=== PATIENT | female | born 1950 | race Caucasian/White ===

== ENCOUNTER 2017-07-31 15:43 | Inpatient (IN) | payer MEDICARE ==
[~2017-07-31] VITALS: Ht 152.4 cm; Wt 72.7 kg
--- OUTSIDE RECORDS SUMMARY | 2017-07-31 15:45 | XMS REPORT ---
Author Author [facility] Address Unknown Phone Unavailable Care Team Providers Care Pier Hand Name Role Phone ESTELLE CORDON Unavailable Unavailable Problems This patient has no known problems. Allergies, Adverse Reactions, Alerts This patient has no known allergies or adverse reactions. Medications This patient has no known medications. Results Test Description Test Time Test Comments Text Results Atomic Results Result Comments TISSUE EXAM 2017-03-06 17:27:00 Surgical Pathology Report Case: [id number] Authorizing Provider: Estelle Cordon MD Collected: 03/02/2017 1313 Ordering Location: [facility] Radiology Main Received: 2016 8792 Pathologist: Adebayo Mosqueda MD Specimen: Lung, Right Lower Lobe, RT LOWER LOBE LUNG, RIGHT LOWER LOBE , CT-GUIDED BIOPSY: - ATYPICAL BRONCHIOLOALVEOLAR PROLIFERATION (SEE COMMENT) Signing Pathologist Direct Phone Line: [phone] signed by Adebayo Mosqueda MD on 03/06/2017 at 5:27 PMMultiple levels of the biopsy show an atypical bronchioloalveolar proliferation. If this lesion is greater than 0.5 cm, it can be classified as an adenocarcinoma with a lepidic pattern. If the lesion is less than 0.5 cm, a diagnosis of atypical adenomatous hyperplasia is favored. Therefore, clinical correlation is recommended. Dr. Fabián Ley from [facility] had reviewed this case and concurs with the findings.[id number] lower lobe noduleRight lower lobe CT lung biopsyThe specimen is received in a formalin-filled container and labeled with the patient's information and labeled "CT lung biopsy right lower lobe" and consists of two sofia-red core biopsy ranging in length from 0.5 to 1 cm , submitted entirely A1. CG/pl Performed. RAD, CHEST, 1 VIEW, NON DEPT 2017-03-03 21:47:00 Reason for exam:->Post Chest tube removalShould this be performed at the bedside?->Yes FINAL REPORT EXAMINATION: AP PORTABLE CHEST RADIOGRAPH CLINICAL INDICATION: Chest tube removal IMPRESSION: Compared with 03/03/2017, 1726 hours. No definite evidence of a large pneumothorax following chest tube removal. However, evaluation for a small residual pneumothorax is limited by AP portable technique and patient's body habitus. Consider short-term imaging surveillance. Alternatively, a chest CT could be performed. Signed: Jamil López Verified Date/Time: 03/03/2017 21:47:16 Reading Location: [address] Reading Room , CHEST, 1 VIEW, NON DEPT 2017-03-03 17:40:00 Reason for exam:->post pig tail catheter removalto be completed in radiology departmentShould this be performed at the bedside?->Noat radiology department FINAL REPORT Chest, single frontal view History: Status post clamping of pigtail chest tube Comparison: Earlier the same day at 11:44 AM IMPRESSION: There is no evidence of pneumothorax status post clamping of the right pigtail chest tube. The heart is of stable size and configuration. There is a trace right pleural effusion. There is no sizable left pleural effusion. Signed: Brian Kaminski Verified Date/Time: 03/03/2017 17:40:29 Reading Location: [facility] C013W Consult Reading Room , CHEST, 1 VIEW, NON DEPT 2017-03-03 13:01:00 Reason for exam:->chest tube for pneumothorax on Water sealShould this be performed at the bedside?-> Yes FINAL REPORT Chest one view Discussion: There is mild cardiac prominence. Right-sided pigtail pleural drain in place. There is right midlung minimal suspected atelectasis. No effusion or pneumothorax. Lungs otherwise clear. Signed: Libertad Romo Verified Date/Time: 03/03/2017 13:01:38 Reading Location: [facility] Reading Room , CHEST, 1 VIEW, NON DEPT 2017-03-03 10:59:00 Reason for exam:->ptxShould this be performed at the bedside?->Yes FINAL REPORT Chest one view compared to March 02 Discussion: Right-sided pigtail pleural drain in place. No effusion or pneumothorax. Right midlung focal opacity laterally is noted more conspicuous and suggested a and probably reflecting atelectasis adjacent to pleural thickening. Left lung clear. Signed: Libertad Romo Verified Date/Time: 03/03/2017 10:59:40 Reading Location: [facility] Radiology Reading Room , BIOPSY, LUNG 2017-03-02 15:45:00 Reason for Exam:->R91.1 FINAL REPORT PROCEDURE: CT-guided core biopsy of right lower lobe subsolid lung nodule with subsequent CT-guided placement of right pleural drainage catheter. Dose modulation, iterative reconstruction, and/or weight- based adjustment of the mA/kV was utilized to reduce the radiation dose to as low as reasonably achievable. INDICATION: 35-year-old woman with lung nodule. COMPARISON: None. ANESTHESIA: Intravenous moderate sedation was administered by radiology nursing. Continuous hemodynamic and respiratory monitoring was performed, including the use of pulse oximetry. Total intraservice time of sedation was 45 minutes. MEDICATIONS: 0.5 mg Versed, 25 mcg fentanyl DESCRIPTION : After obtaining informed written consent, the patient was brought to the CT scanner and placed in the prone position. Preliminary CT scan revealed 1.4 cm subsolid nodule in the right lower lobe. This nodule was targeted for biopsy. The overlying skin was prepped and draped in the usual, sterile fashion and local 1% lidocaine anesthesia was administered. Under CT guidance, a 19-gauge introducer needle was inserted into the posterolateral right back and placed at the periphery of the nodule. The inner stylette was removed, and a 20-gauge Temno core biopsy needle was passed through the introducer and into the nodule. Two core biopsy samples of the nodule were obtained. The needles were subsequently removed. Follow-up CT scan revealed development of a moderate pneumothorax, which enlarged after a subsequent [address] scan. A right pleural drainage catheter was to be placed. The overlying skin was prepped and draped in the usual, sterile fashion and local 1% lidocaine anesthesia was administered. Under CT guidance, a 19-gauge needle was inserted into the right back and placed into the right pleural space. A 0.035 inch wire was passed through the needle and into the right pleural space. The needle was removed. An 8 Bahamian all-purpose drainage catheter was threaded over the wire and into the pleural space after serial dilatation of the tract with 6 and 8 Bahamian dilators. The wire was removed. The catheter was affixed to the skin and connected to Pleur-evac. Post procedure CT scan showed near complete resolution of the right pneumothorax. IMPRESSION:CT-guided core biopsy of right lower lobe nodule, complicated by postprocedural pneumothorax. Uncomplicated CT-guided placement of 8 Bahamian pleural drainage catheter on the right with near complete resolution of pneumothorax on postprocedural CT scan. Signed: Kentrell Velasco Verified Date/Time: 03/02/2017 15:45:51 Reading Location: [place] [id number] CT Body Reading Room , CHEST, PA OR AP, 1 VIEW 2017-03-02 15:03:00 Reason for exam:->S/P right lung biopsyShould this be performed at the bedside?->No FINAL REPORT Chest one view compared to July 15, 2002 Discussion: Right- sided pigtail pleural drain is present with no visible effusion or pneumothorax after lung biopsy. 1 cm focal opacity is seen in the right mid chest corresponding with a focal region of pleural thickening present on CT. IMPRESSIONS: No visible pneumothorax. Signed: Libertad Romo Verified Date/Time: 03/02/2017 15:03:39 Reading Location: [facility] C013W Consult Reading Room /APTT 2017-03-02 11:08:00 PROTIME (BEAKER) (test lsyn=840) 12.6 seconds 11.7-14.7 INR (BEAKER) (test djms=460) 1.0 <=5.9 PARTIAL THROMBOPLASTIN TIME (BEAKER) (test gkws=236) 33.0 seconds 22.5-36.0 RECOMMENDED COUMADIN/WARFARIN INR THERAPY RANGESSTANDARD DOSE: 2.0 - 3.0 Includes: PROPHYLAXIS for venous thrombosis, systemic embolization; TREATMENT for venous thrombosis and/or pulmonary embolus.HIGH RISK: Target INR is 2.5-3.5 for patients with mechanical heart valves.PLATELET [id number] 11:00:00* Test Item Value Reference Range Comments PLATELET COUNT (BEAKER) (test xtva=559) 186 K/CU MM 150-450
[2017-07-31] MEDS ORDERED: ISOSORBIDE MONO30 MG PO (15:59)
[2017-07-31] MEDS ORDERED: ALBUTEROL0.63 MG/3 INH (15:59)
[2017-07-31] MEDS ORDERED: METOPROLOL TART50 MG PO (15:59)
[2017-07-31] MEDS ORDERED: CLARITIN-D 241 EACH PO (15:59)
[2017-07-31] MEDS ORDERED: AMLODIPINE BESY10 MG PO (15:59)
[2017-07-31] MEDS ORDERED: ASPIR 8181 MG PO (15:59)
[2017-07-31] MEDS ORDERED: ATORVASTATIN CA20 MG PO (15:59)
[2017-07-31] MEDS ORDERED: PREMARIN0.625 MG VG (15:59)
[2017-07-31] MEDS ORDERED: SODIUM CHLORIDE 0.9% 1000ML 1,000 ML IV STA (16:17)
[2017-07-31 16:23] LABS: BASOPHILS % 0.8 % (0.0-1.0); EOSINOPHILS # (AUTO) 0.1 (0.0-0.4); EOSINOPHILS % 1.8 % (0.0-6.0); HEMATOCRIT 42.8 % (34.2-44.1); HEMOGLOBIN 14.8 g/dL (12.0-16.0); LYMPHOCYTES % 19.2 % (18.0-39.1); MEAN CORPUSCULAR HEMOGLOBIN 32.8 pg (28-32); MEAN CORPUSCULAR HGB CONC 34.6 g/dL (31-35); MEAN CORPUSCULAR VOLUME 94.9 fL (81-99); MONOCYTES # (AUTO) 0.5 (0.2-0.8); MONOCYTES % 9.2 % (4.4-11.3); NEUTROPHILS # (AUTO) 3.4 (2.1-6.9); NEUTROPHILS % 68.2 % (38.7-80.0); PLATELET COUNT 160 x10e3/uL (140-360); RED BLOOD COUNT 4.51 x10e6/uL (3.6-5.1); RED CELL DISTRIBUTION WIDTH 12.1 % (11.7-14.4)
[2017-07-31 16:27] LABS: INR 1.03; PROTHROMBIN TIME 12.7 seconds (11.9-14.5)
[2017-07-31 16:28] LABS: PARTIAL THROMBOPLASTIN TIME 32.7 seconds (23.8-35.5)
[2017-07-31] MEDS ORDERED: METHYLPREDNISOLONE SOD SUCC 125 MG/2ML VIAL IV ONE (16:30)
[2017-07-31 16:37] LABS: ALANINE AMINOTRANSFERASE 22 IU/L (0-55); ALBUMIN 3.3 g/dL (3.5-5.0); ALBUMIN/GLOBULIN RATIO 0.8 (0.8-2.0); ALKALINE PHOSPHATASE 89 IU/L (40-150); ANION GAP 11.7 mmol/L (8-16); BLOOD UREA NITROGEN 12 mg/dL (7-26); BUN/CREATININE RATIO 18 (6-25); CALCIUM 8.6 mg/dL (8.4-10.2); CARBON DIOXIDE 25 mmol/L (22-29); CHLORIDE 98 mmol/L (98-107); CREATINE KINASE 41 IU/L (29-168); CREATININE, SERUM 0.67 mg/dL (0.57-1.11); EST GLOMERULAR FILTRATION RATE > 60 ML/MIN (60-); GLUCOSE 111 mg/dL (74-118); POTASSIUM 3.7 mmol/L (3.5-5.1); SODIUM 131 mmol/L (136-145)
--- NOTE | 2017-07-31 17:15 | Diagnostic Imaging Report ---
PROCEDURE:CHEST SINGLE (PORTABLE) 1707 hrs. COMPARISON:None. INDICATIONS:PRODUCTIVE COUGH FINDINGS: LUNGS:No well-inflated. Mild bibasilar atelectasis. No mass or infiltrate. Pulmonary vascular markings are normal. CARDIAC:Mildly enlarged. MEDIASTINUM:Normal. PLEURA:No pleural thickening or pleural effusion. No pneumothorax. BONES:A mandibular plate is incompletely imaged. No focal osseous lesions. CONCLUSION: No acute cardiopulmonary process. Dictated by: Sai Redd M.D. on 07/31/2017 at 17:15 Electronically approved by: Sai Redd M.D. on 07/31/2017 at 17:15
[2017-07-31 17:53] LABS: ABG HCO3 24 mmol/L (23-28); ABG PCO2 41 mmHg (41-51); ABG PH 7.38 (7.31-7.41); ABG PO2 53 mmHg (80-105)
[2017-07-31] MEDS ORDERED: AZITHROMYCIN 500MG/SOD CHL 0.9% 250ML BAG IV SCH (18:30)
[2017-07-31] MEDS: ALBUTEROL SULF 0.083% NEB SOLN 3 ML NEB NEB SCH ×2 (19:02→23:00)
[2017-07-31] MEDS: AZITHROMYCIN 500MG/NS 250 ML 250 ML IV SCH (19:49)
[2017-07-31] MEDS: SODIUM CHLORIDE 0.9% 1000ML 1,000 ML IV SCH (19:49)
[2017-07-31] MEDS ORDERED: ONDANSETRON HCL INJ 2 MG/ML VIAL IV PRN (20:15)
[2017-07-31 21:45] VITALS: BP 97/58
[2017-07-31] MEDS: METHYLPREDNISOLONE SOD SUCC 40 MG/ML VIAL IV SCH (22:00)
[2017-07-31 22:55] VITALS: BP 97/58
[2017-08-01] VITALS (8 sets, daily range): BP systolic 99–121; BP diastolic 52–60
[2017-08-01] MEDS ORDERED: IPRATROPIUM BROMIDE 0.02% 2.5 ML NEB NEB SCH
[2017-08-01] MEDS: SODIUM CHLORIDE 0.9% 1000ML 1,000 ML IV SCH (02:23)
[2017-08-01] MEDS: ALBUTEROL SULF 0.083% NEB SOLN 3 ML NEB NEB SCH ×5 (03:00→20:15)
--- NOTE | 2017-08-01 04:20 | Consultation ---
DATE OF CONSULTATION: August 01, 2017 PULMONARY MEDICINE CONSULT REFERRING PHYSICIAN: [facility] MD: KATHY CAMPBELL CHIEF COMPLAINT: Shortness of breath. HISTORY: Mrs. James is a pleasant 67-year-old female with shortness of breath. The patient with onset 2 weeks ago. However, for the last 3 days symptoms are worse. The patient went in to see her manager mac today. Due to severe hypoxemia of 78% on room air, she was sent to the emergency room. The patient was having excess wheezing. She was found with thin sputum production. When she came to the emergency room, she was short of breath. She was given oxygen, but then she was given a trial of BiPAP, which she did not tolerate very well. However, she was given nebulized treatments, as well as steroids. She started to feel a little bit better. Chest x-ray is unremarkable on 1 view. At baseline, the patient with daily allergies. Known asthma. Reported COPD. The patient even had lung cancer, status post radiation therapy. Exercise tolerance is three-quarters of a block, which is limited by shortness of breath and knee pain. Normally at home, she is only on albuterol inhaler or nebulized therapy. She still actively smokes. PAST MEDICAL HISTORY: Asthma, COPD, daily allergies, hypertension, lung cancer, status post radiation therapy in 2017, coronary artery disease, femoral popliteal bypass. MEDICATIONS: List reviewed per electronic record. ALLERGIES: VARENICLINE, ALENDRONATE, NIACIN, PENICILLIN. SOCIAL HISTORY: No drinking. No drugs. The patient smoked from age 12 to age 67, 1-pack per day. 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 FAMILY HISTORY: Noncontributory. REVIEW OF SYSTEMS GENERAL: No weight changes. OPHTHALMOLOGIC: No double vision. ENT: There is no history of Sjogren's syndrome. PULMONARY: No hemoptysis. HEART: No heart attacks recent. GI: No current pain. : No blood in the urine. NEUROLOGIC: No seizures. DERMATOLOGIC: No rashes. PSYCHIATRIC: No depression. PHYSICAL EXAMINATION VITALS: Currently afebrile. Vital signs noted per electronic record. GENERAL: No acute distress. Alert and calm and very pleasant. HEENT: Normocephalic and atraumatic. NECK: Supple. Throat midline. LUNGS: Bilateral air entry. There is small crackles heard. Small wheezes heard, but overall moderate air entry. CARDIOVASCULAR: S1 and S2. No murmurs, rubs or gallops. ABDOMEN: Soft and nontender. EXTREMITIES: No clubbing. No cyanosis. There is some 2+ edema. INTEGUMENT: No rash. No purpura. There is some possible stasis changes to the legs. LABS: Potassium 2.7, BUN 12, creatinine 0.7. White count 5, hematocrit 42 and platelets 160,000. BNP was 155. 7.38/41/53/86% oxygen saturation, and 24 bicarbonate. Albumin is 3.3 with LFTs otherwise normal. IMPRESSION AND PLAN 1. Treat for asthma with exacerbation. 2. Chronic obstructive pulmonary disease with exacerbation by history. 3. Daily allergies. 4. History of lung cancer, status post radiation therapy in 2017. 5. Hypertension. 6. Coronary artery disease. 7. History of peripheral vascular disease and femoral popliteal bypass surgery. 8. Active smoker. 9. Acute hypoxemic respiratory failure, improving. 10. Electrolyte abnormalities including low sodium and low normal potassium. Will get PT consult. Will make sure the patient maintains her strength. Steroids will be for short-term. Bronchodilators. She needs outpatient confirmation for her diagnosis, and she is already with [facility]. She can be referred to them after discharge. She will have antibiotics for short-term here for COPD exacerbation. DVT prophylaxis as appropriate especially since the patient is not ambulating well. The patient also needs escalation of her medications as she is only on albuterol treatment at home for some unknown reason. She may even benefit from aggressive pulmonary rehabilitation after discharge. Thank you, Dr. Campbell, for allowing me the chance to participate in the care of Mrs. James. Do not hesitate to contact me if I can help in any way. Job#: [id number] RAZ COURTNEY
[2017-08-01] MEDS: METHYLPREDNISOLONE SOD SUCC 40 MG/ML VIAL IV SCH ×3 (05:05→21:34)
[2017-08-01 06:25] LABS: BASOPHILS % 0.2 % (0.0-1.0); HEMATOCRIT 41.2 % (34.2-44.1); HEMOGLOBIN 14.1 g/dL (12.0-16.0); LYMPHOCYTES # (AUTO) 0.5 (1.0-3.2); LYMPHOCYTES % 13.2 % (18.0-39.1); MEAN CORPUSCULAR HEMOGLOBIN 33.1 pg (28-32); MEAN CORPUSCULAR HGB CONC 34.2 g/dL (31-35); MEAN CORPUSCULAR VOLUME 96.7 fL (81-99); MONOCYTES # (AUTO) 0.1 (0.2-0.8); MONOCYTES % 1.7 % (4.4-11.3); NEUTROPHILS # (AUTO) 3.4 (2.1-6.9); NEUTROPHILS % 84.4 % (38.7-80.0); PLATELET COUNT 163 x10e3/uL (140-360); RED BLOOD COUNT 4.26 x10e6/uL (3.6-5.1)
--- NOTE | 2017-08-01 06:36 | Diagnostic Imaging Report ---
CHEST SINGLE (PORTABLE), 08/01/2017 5:00 AM Technique: CHEST SINGLE (PORTABLE) Comparison: None available. Clinical history: Pneumonia Findings: See Impression Impression: 1. Mildly enlarged cardiac silhouette. 2. Left hilar parviz calcifications and left lung calcified granuloma. 3. 5 mm nodule projects over the right lung, which may be calcified or summation shadow or true nodule. Recommend follow-up upright PA and lateral. 4. No consolidation. No effusion or pneumothorax. Signed by: Dr Sandi Gonzalez MD on 08/01/2017 6:32 AM
[2017-08-01 06:43] LABS: ANION GAP 17.1 mmol/L (8-16); BLOOD UREA NITROGEN 16 mg/dL (7-26); BUN/CREATININE RATIO 21 (6-25); CALCIUM 8.7 mg/dL (8.4-10.2); CARBON DIOXIDE 21 mmol/L (22-29); CHLORIDE 98 mmol/L (98-107); CREATININE, SERUM 0.77 mg/dL (0.57-1.11); EST GLOMERULAR FILTRATION RATE > 60 ML/MIN (60-); GLUCOSE 195 mg/dL (74-118); POTASSIUM 4.1 mmol/L (3.5-5.1); SODIUM 132 mmol/L (136-145)
[2017-08-01] MEDS: IPRATROPIUM BROMIDE 0.02% 2.5 ML NEB NEB SCH ×4 (07:00→20:15)
[2017-08-01] MEDS ORDERED: ASPIRIN 325 MG TAB PO SCH (09:00)
[2017-08-01] MEDS: ASPIRIN 81 MG ENTERIC COATED PO SCH (09:23)
[2017-08-01] MEDS: ENOXAPARIN SOD INJ 40 MG/0.4 ML SYR SC SCH (18:39)
[2017-08-01] MEDS: AZITHROMYCIN 500MG/NS 250 ML 250 ML IV SCH (19:21)
[2017-08-01] MEDS ORDERED: ATORVASTATIN 20 MG TAB PO SCH (21:00)
[2017-08-01] MEDS: ATORVASTATIN 40 MG TAB PO SCH (21:34)
[2017-08-02] VITALS (10 sets, daily range): BP systolic 104–128; BP diastolic 43–72
[2017-08-02] MEDS: IPRATROPIUM BROMIDE 0.02% 2.5 ML NEB NEB SCH ×7 (00:30→23:18)
[2017-08-02] MEDS: ALBUTEROL SULF 0.083% NEB SOLN 3 ML NEB NEB SCH ×7 (00:30→23:18)
[2017-08-02] MEDS: METHYLPREDNISOLONE SOD SUCC 40 MG/ML VIAL IV SCH ×3 (06:20→21:39)
--- NOTE | 2017-08-02 06:28 | Diagnostic Imaging Report ---
CHEST SINGLE (PORTABLE), 08/02/2017 5:00 AM Technique: CHEST SINGLE (PORTABLE) Comparison: 08/01/2017. Clinical history: COPD exacerbation Findings: See Impression Impression: 1. Stable mildly enlarged cardiac silhouette. 2. Left hilar parviz calcifications and left lung calcified granuloma. Previously described right lung nodule not seen. 3. Large lung volumes/hyperinflation without consolidation. No effusion or pneumothorax. Signed by: Dr Sandi Gonzalez MD on 08/02/2017 6:24 AM
[2017-08-02] MEDS: ASPIRIN 81 MG ENTERIC COATED PO SCH (09:38)
[2017-08-02] MEDS ORDERED: PREDNISONE10 M1 PO (13:17)
[2017-08-02] MEDS ORDERED: SINGULAIR10 MG PO (13:17)
[2017-08-02] MEDS ORDERED: ADVAIR 500/501 EA INH (13:17)
[2017-08-02] MEDS ORDERED: PROAIR HFA INH8.5 GM PO (13:17)
--- NOTE | 2017-08-02 15:37 | Progress Note ---
DATE: August 02, 2017 PULMONARY MEDICINE PROGRESS NOTE SUBJECTIVE: Ms. James was seen and examined at bedside. She continues to have slow progress. Still a lot of wheezing. Still mildly tight airways. Oxygen saturation 96% on 5 liters per minute nasal cannula oxygen. When she is removed from oxygen, her oxygen saturation becomes 87% on room air at rest. She is not able to get up and ambulate too much as she is tied down via the oxygen equipment and her dyspnea. REVIEW OF SYSTEMS: No bleeding, no rash. OBJECTIVE VITAL SIGNS: Afebrile. Vital signs noted per electronic record. GENERALLY: No acute distress, but some trouble completing long sentences but able to talk and hold a conversation. HEENT: Normocephalic, atraumatic. NECK: Supple. Throat midline. LUNGS: Bilateral air entry, a few rare rhonchi, moderate wheezes, mildly decreased air entry. CARDIOVASCULAR: S1 and S2. No murmurs, rubs or gallops. ABDOMINAL: Soft, nontender. EXTREMITIES: No clubbing, no cyanosis. There is still the 2+ edema all over the body. INTEGUMENT: No rash. No purpura. LABS: Potassium 4.1, BUN 16, creatinine 0.8. Patient with 4 white count, 41 hematocrit, 163 platelets. Chest radiography with stable findings, mostly clear lungs except for some perihilar and mediastinal calcifications probably in lymph nodes. IMPRESSION AND PLAN 1. Chronic obstructive pulmonary disease with exacerbation. COPD is per report. 2. Asthma with exacerbation. 3. Chronic allergies. 4. Hypoxemia, significant still. 5. Generalized edema, patient declared to me she was started with venous stasis changes rather than dermal atrophy due to steroids. 6. Remaining gastroesophageal reflux disease. Continue current treatment at this time. Patient will get continued evaluation to see how significant any GERD is as of now. She tends to minimize this process. However, her breathing still requires the IV steroids. Continue bronchodilators. I have prepared some medicines and discussed with her outpatient treatment as usual for this process. I explained to her the rationale for stepping up on breathing treatments and any other corticosteroids and other medicines. Continue to wean down the oxygen. For now, patient still is on more oxygen than she is at home, as she at home has not been given any recommendation to use home oxygen. Follow along closely. Job#: [id number] EV
[2017-08-02] MEDS: ENOXAPARIN SOD INJ 40 MG/0.4 ML SYR SC SCH (16:51)
[2017-08-02] MEDS: AZITHROMYCIN 500MG/NS 250 ML 250 ML IV SCH (18:02)
[2017-08-02] MEDS: ATORVASTATIN 40 MG TAB PO SCH (20:52)
[2017-08-03] VITALS (7 sets, daily range): BP systolic 110–135; BP diastolic 56–97
[2017-08-03] MEDS: IPRATROPIUM BROMIDE 0.02% 2.5 ML NEB NEB SCH ×6 (02:57→23:20)
[2017-08-03] MEDS: ALBUTEROL SULF 0.083% NEB SOLN 3 ML NEB NEB SCH ×6 (02:57→23:20)
[2017-08-03] MEDS: METHYLPREDNISOLONE SOD SUCC 40 MG/ML VIAL IV SCH ×3 (05:11→21:09)
[2017-08-03] MEDS: BENZONATATE 100 MG CAP PO SCH ×2 (08:27→16:22)
[2017-08-03] MEDS: ASPIRIN 81 MG ENTERIC COATED PO SCH (08:27)
[2017-08-03] MEDS: ENOXAPARIN SOD INJ 40 MG/0.4 ML SYR SC SCH (16:22)
[2017-08-03] MEDS: AZITHROMYCIN 500MG/NS 250 ML 250 ML IV SCH (18:10)
--- NOTE | 2017-08-03 19:35 | Progress Note ---
DATE: August 03, 2017 PULMONARY MEDICINE PROGRESS NOTE SUBJECTIVE: Mrs. James was seen and examined at bedside. She continues to have slow progress. She still has much decreased air entry when listening to her lungs. Patient continues to have low functional endurance. She gets up to the bedside toilet with assist, and then she is exhausted. She desaturates right away. She is drinking little and has low appetite. Patient as well remains on nasal cannula oxygen 4 liters per minute, 95% oxygen saturation. Urine output is kind of low, to go along with drinking little. She had a bowel movement. REVIEW OF SYSTEMS: No headaches, no rash. OBJECTIVE VITAL SIGNS: Afebrile. Vital signs noted per electronic record. GENERALLY: No acute distress, alert and slightly anxious but able to talk fluently. HEENT: Normocephalic, atraumatic. NECK: Supple. Throat midline. LUNGS: Bilateral air entry, a few smaller wheezes today but decreased breath sounds. CARDIOVASCULAR: S1 and S2. No murmurs, rubs or gallops. ABDOMINAL: Soft, nontender. EXTREMITIES: No clubbing, no cyanosis. There is decreasing edema, 2+. INTEGUMENT: No rash. Mild purpura. Old bruising, flaky skin. LABS: Potassium 4.1, BUN 16, creatinine 0.8. White count 4, hematocrit 41, platelets 163. IMPRESSION AND PLAN 1. Chronic obstructive pulmonary disease with exacerbation. 2. Asthma exacerbation. 3. Refractory/persistent hypoxemia and dyspnea. 4. Daily allergies. 5. History of lung cancer and radiation therapy 2017. 6. Hypertension, coronary artery disease, peripheral vascular disease, bypass status, probable mild dehydration intravascularly. 7. Active smoker. 8. Hypoxemia and respiratory failure, resolving but still active. Due to refractory state, will check a lower extremity ultrasound Doppler, rule out DVT. Consideration for CT angiography to rule out PE. Will increase the enoxaparin for a short term hopefully and will be able to scale back if we do not have any clots. Continue steroids and bronchodilators. Will follow along closely. Job#: [id number] ANGELA
[2017-08-03] MEDS: ATORVASTATIN 40 MG TAB PO SCH (21:09)
[2017-08-04] VITALS (9 sets, daily range): BP systolic 101–144; BP diastolic 60–70
[2017-08-04] MEDS: IPRATROPIUM BROMIDE 0.02% 2.5 ML NEB NEB SCH ×6 (03:07→23:25)
[2017-08-04] MEDS: ALBUTEROL SULF 0.083% NEB SOLN 3 ML NEB NEB SCH ×6 (03:07→23:25)
[2017-08-04] MEDS: METHYLPREDNISOLONE SOD SUCC 40 MG/ML VIAL IV SCH ×3 (05:20→21:33)
[2017-08-04] MEDS: ENOXAPARIN INJ 80 MG/0.8 ML SYR SC SCH ×2 (09:13→20:21)
[2017-08-04] MEDS: BENZONATATE 100 MG CAP PO SCH ×2 (09:13→16:31)
[2017-08-04] MEDS: ASPIRIN 81 MG ENTERIC COATED PO SCH (09:13)
--- NOTE | 2017-08-04 13:37 | Progress Note ---
DATE: August 04, 2017 PULMONARY MEDICINE PROGRESS NOTE SUBJECTIVE: Mrs. James was seen and examined at bedside. She continues to have poor improvement. She is still not even at half of her baseline functionality. Patient with tight airways when she breathes. Ultrasound of the lower extremities appears like it will be negative for DVT. She remains on bronchodilators and IV steroids. REVIEW OF SYSTEMS: No bleeding. No rash. OBJECTIVE VITAL SIGNS: Afebrile. Vital signs noted per electronic record. GENERAL: No acute distress, alert and calm, but using excess work to breathe. HEENT: Normocephalic, atraumatic. NECK: Supple. Throat midline. LUNGS: Bilateral air entry, a few rhonchi, tight airways moderately, moderate wheezes. CARDIOVASCULAR: S1 and S2. No murmurs, rubs or gallops. ABDOMEN: Soft, nontender. EXTREMITIES: No clubbing, no cyanosis. There is stable 1 to 2+ edema. INTEGUMENT: No rash. No purpura. Thin skin. IMPRESSION AND PLAN 1. Chronic obstructive pulmonary disease with exacerbation. 2. Possible concomitant asthma with exacerbation. 3. Chronic allergies. 4. Refractory dyspnea. 5. Poor functional endurance at this time. Continue steroids at this time. Further, we will continue bronchodilators. Will have to consider other etiologies. IgE, risk factors and LALA we all sent today. Send urinalysis. Send CT angiography to rule out thromboembolic disease and also look at the structure of the lungs. The patient notably has some kind of lung cancer for which radiation was given which would make us assume it was a very small lesion, but CT scan will allow us to figure that out. Job#: [id number]
--- NOTE | 2017-08-04 15:48 | Diagnostic Imaging Report ---
EXAM: CT Chest WITH contrast (PE Protocol) INDICATION: \S\pulmonary embolism \S\[id number] \S\1450 COMPARISON: Chest x-ray dated 08/02/2017 TECHNIQUE: Chest was scanned utilizing a multidetector helical scanner from the lung apex through the level of the diaphragm after administration of IV contrast. Thin section reconstructions were obtained with special concentration on the pulmonary arteries. Coronal and sagittal reformations were obtained. Pulmonary embolism protocol was performed. IV CONTRAST: 100 mL of Omnipaque 350 COMPLICATIONS: None RADIATION DOSE: Total DLP: 532.19 mGy*cm Estimated effective dose: (DLP x 0.014 x size factor) mSv CTDIvol has been reviewed. It is below the limits set by the Radiation Protocol Committee (RPC). FINDINGS: LINES/ TUBES: None. LUNGS AND AIRWAYS: Evaluation of the lungs are limited by respiratory motion. No filling defect is identified within the pulmonary arteries to the segmental level. Left lower lobe calcified granuloma. Bilateral dependent atelectasis, right slightly more to left. Airways are normal. PLEURA: The pleural spaces are clear. HEART AND MEDIASTINUM: The thyroid gland is normal. No mediastinal, hilar or axillary lymphadenopathy. The heart is mildly enlarged. There is no pericardial effusion. . Main pulmonary artery measures 3 cm in diameter. Mild atherosclerotic calcification of coronary arteries. UPPER ABDOMEN: Multiple splenic calcified granulomas. BONES: Age indeterminate compression fracture of T5 vertebral body with exaggerated kyphosis, centered at this level. SOFT TISSUES: Unremarkable. IMPRESSION: No pulmonary emboli. Age indeterminate compression fracture of T5 vertebral body. Signed by: Dr. Demarcus Klein MD on 08/04/2017 3:45 PM
[2017-08-04 15:56] LABS: BILIRUBIN,URINE NEGATIVE (NEGATIVE); COLOR,URINE YELLOW (YELLOW); KETONES,URINE NEGATIVE (NEGATIVE); LEUKOCYTE ESTERASE ,URINE NEGATIVE (NEGATIVE); NITRITE,URINE NEGATIVE (NEGATIVE); PROTEIN,URINE DIPSTICK NEGATIVE (NEGATIVE); URINE UROBILINOGEN 0.2 mg/dL (0.2 - 1)
[2017-08-04 15:58] LABS: CLARITY,URINE SL CLOUDY (CLEAR)
[2017-08-04 16:09] LABS: BACTERIA,URINE RARE /HPF; EPITHELIAL CELLS,URINE MODERATE /LPF; RBC,URINE 0-5 /HPF (0-5); WBC,URINE (MAN) 0-5 /HPF (0-5)
[2017-08-04] MEDS: AZITHROMYCIN 500MG/NS 250 ML 250 ML IV SCH (18:20)
[2017-08-04] MEDS: ATORVASTATIN 40 MG TAB PO SCH (20:22)
[2017-08-04] MEDS ORDERED: SODIUM CHLORIDE 0.9% 50ML 50 ML ONE (22:15)
[2017-08-04] MEDS ORDERED: IOPAMIDOL 370 MG/ML 200 ML INFUS..BTL INJ ONE (22:15)
[2017-08-05] VITALS (7 sets, daily range): BP systolic 96–132; BP diastolic 61–65
[2017-08-05] MEDS: IPRATROPIUM BROMIDE 0.02% 2.5 ML NEB NEB SCH ×6 (03:10→23:42)
[2017-08-05] MEDS: ALBUTEROL SULF 0.083% NEB SOLN 3 ML NEB NEB SCH ×6 (03:10→23:42)
[2017-08-05] MEDS: METHYLPREDNISOLONE SOD SUCC 40 MG/ML VIAL IV SCH ×3 (05:41→21:53)
[2017-08-05] MEDS: BENZONATATE 100 MG CAP PO SCH ×2 (09:15→17:05)
[2017-08-05] MEDS: ENOXAPARIN INJ 80 MG/0.8 ML SYR SC SCH (09:15)
[2017-08-05] MEDS: ASPIRIN 81 MG ENTERIC COATED PO SCH (09:15)
--- NOTE | 2017-08-05 14:38 | Progress Note ---
DATE: August 05, 2017 PULMONARY MEDICINE PROGRESS NOTE SUBJECTIVE: Mrs. James was seen and examined at bedside. She continues to have slow progress. Still some wheezing. Still semi-tight chest. CT angiography, however, did not show any pulmonary embolism yesterday. At this time, she continues on 2 L per minute nasal cannula with 95% oxygen saturation. She is having bowel movements daily. REVIEW OF SYSTEMS: No headaches. No double vision or GI bleed. OBJECTIVE VITALS: Afebrile. Vital signs noted per electronic record. GENERAL: No acute distress. Still with low function endurance obvious when moving even in bed. HEENT: Normocephalic and atraumatic. NECK: Supple. Throat midline. LUNGS: Bilateral air entry is moderate only, decreased. There is some mild to moderate wheezes present. Few rhonchi. CARDIOVASCULAR: S1 and S2. No murmurs, rubs or gallops. ABDOMEN: Soft and nontender. EXTREMITIES: No clubbing. No cyanosis. There is stable edema and thin skin. INTEGUMENT: No rash. No purpura. LABS: IgE is still pending. LALA is pending. Rheumatoid factor negative. IMPRESSION AND PLAN 1. Chronic obstructive pulmonary disease with exacerbation. 2. Asthma with exacerbation. 3. Possible mild pulmonary hypertension. 4. Weakness and debility. 5. Reported lung cancer with radiation therapy, although this is not very well noted on computerized tomography scan. 6. Allergies. 7. Active smoking. Make sure we continue smoking cessation in hopes she can achieve after she gets out of the hospital. Continue PT and mobilization. Steroids continue for now and hope to get this weaned down soon. Medications including bronchodilators will be continued. Will consider addition of theophylline due to this slow progress that we are achieving. Job#: [id number] RAZ
[2017-08-05] MEDS: AZITHROMYCIN 500MG/NS 250 ML 250 ML IV SCH (18:47)
[2017-08-05] MEDS: ATORVASTATIN 40 MG TAB PO SCH (21:53)
[2017-08-06] VITALS (10 sets, daily range): BP systolic 132–146; BP diastolic 57–81
[2017-08-06] MEDS: IPRATROPIUM BROMIDE 0.02% 2.5 ML NEB NEB SCH ×5 (03:00→23:05)
[2017-08-06] MEDS: ALBUTEROL SULF 0.083% NEB SOLN 3 ML NEB NEB SCH ×6 (03:00→23:05)
[2017-08-06] MEDS: METHYLPREDNISOLONE SOD SUCC 40 MG/ML VIAL IV SCH ×3 (06:00→22:10)
[2017-08-06 06:22] LABS: BASOPHILS % 0.3 % (0.0-1.0); HEMATOCRIT 39.3 % (34.2-44.1); HEMOGLOBIN 13.3 g/dL (12.0-16.0); LYMPHOCYTES # (AUTO) 0.5 (1.0-3.2); MEAN CORPUSCULAR HEMOGLOBIN 32.6 pg (28-32); MEAN CORPUSCULAR HGB CONC 33.8 g/dL (31-35); MEAN CORPUSCULAR VOLUME 96.3 fL (81-99); MONOCYTES # (AUTO) 0.3 (0.2-0.8); MONOCYTES % 4.2 % (4.4-11.3); NEUTROPHILS # (AUTO) 5.3 (2.1-6.9); NEUTROPHILS % 85.7 % (38.7-80.0); PLATELET COUNT 202 x10e3/uL (140-360); RED BLOOD COUNT 4.08 x10e6/uL (3.6-5.1); RED CELL DISTRIBUTION WIDTH 12.3 % (11.7-14.4)
[2017-08-06 06:43] LABS: ANION GAP 11.4 mmol/L (8-16); BLOOD UREA NITROGEN 12 mg/dL (7-26); BUN/CREATININE RATIO 19 (6-25); CALCIUM 8.8 mg/dL (8.4-10.2); CARBON DIOXIDE 34 mmol/L (22-29); CHLORIDE 97 mmol/L (98-107); CREATININE, SERUM 0.63 mg/dL (0.57-1.11); EST GLOMERULAR FILTRATION RATE > 60 ML/MIN (60-); GLUCOSE 224 mg/dL (74-118); MAGNESIUM 1.9 MG/DL (1.3-2.1); POTASSIUM 3.4 mmol/L (3.5-5.1); SODIUM 139 mmol/L (136-145)
[2017-08-06] MEDS ORDERED: POTASSIUM CHLORIDE 20 MEQ TAB CR PO ONE (09:00)
[2017-08-06] MEDS: ASPIRIN 81 MG ENTERIC COATED PO SCH (10:19)
[2017-08-06] MEDS: BENZONATATE 100 MG CAP PO SCH ×2 (10:19→18:29)
--- NOTE | 2017-08-06 14:35 | Progress Note ---
DATE: August 06, 2017 PULMONARY MEDICINE PROGRESS NOTE SUBJECTIVE: Mrs. James was seen and examined at bedside. She continues to have some improvement. With acapella, she was able to expectorate more secretions in the last day. She is still on oxygen at 3 L per minute. Oxygen saturation about 89% often seen while she is talking. She is starting to eat better. REVIEW OF SYSTEMS: No headaches. No rash. OBJECTIVE VITALS: Afebrile. Vital signs noted per electronic record. GENERAL: In no acute distress. Alert and calm. HEENT: Normocephalic and atraumatic. NECK: Supple. Throat midline. LUNGS: Bilateral air entry is mildly decreased. Moderate to good air entry, but still with moderate wheezes. Few rhonchi. CARDIOVASCULAR: S1 and S2. No murmurs, rubs or gallops. ABDOMEN: Soft and nontender. EXTREMITIES: No clubbing. No cyanosis. There is stable edema, 2+ to 3+. INTEGUMENT: No rash. No purpura. LABS: Potassium 3.4, creatinine 0.6. White count 6, hematocrit 39 and platelets 202,000. IMPRESSION AND PLAN 1. Chronic obstructive pulmonary disease with exacerbation. 2. Concomitant asthma with exacerbation. 3. Weakness. 4. History of possible lung cancer after radiation treatment in 2017, although no large lesions seen on computerized tomography of chest. 5. Peripheral vascular disease: Cardiac/coronary artery disease. Home oxygen evaluation. If she continues to improve, we can consider for discharge. Ambulate the patient. Facilitate expectoration. Steroids will be continued for now. Follow IgE and LALA levels. Replete potassium. Job#: [id number] RAZ
[2017-08-06] MEDS: ENOXAPARIN SOD INJ 40 MG/0.4 ML SYR SC SCH (18:29)
[2017-08-06] MEDS: AZITHROMYCIN 500MG/NS 250 ML 250 ML IV SCH (19:25)
[2017-08-06 21:43] LABS: ALPHA-1-ANTITRYPSIN 174 mg/dL (90-200)
[2017-08-06] MEDS: ATORVASTATIN 40 MG TAB PO SCH (22:10)
[2017-08-07] VITALS (8 sets, daily range): BP systolic 122–142; BP diastolic 58–69
[2017-08-07] MEDS: METHYLPREDNISOLONE SOD SUCC 40 MG/ML VIAL IV SCH (06:05)
[2017-08-07] MEDS: IPRATROPIUM BROMIDE 0.02% 2.5 ML NEB NEB SCH ×5 (07:30→23:15)
[2017-08-07] MEDS: ALBUTEROL SULF 0.083% NEB SOLN 3 ML NEB NEB SCH ×7 (07:30→23:15)
[2017-08-07] MEDS: BENZONATATE 100 MG CAP PO SCH ×2 (08:49→16:58)
[2017-08-07] MEDS: ASPIRIN 81 MG ENTERIC COATED PO SCH (08:49)
--- NOTE | 2017-08-07 12:35 | Progress Note ---
DATE: NOTE: I am dictating just to clarify the appropriate patient name and account number was linked to progress note confirmation number [id number], that's [id number]. That was a progress note for Radha James. The account number is [id number]. That was [id number] and I think I got the account number wrong when I dictated. Job#: [id number] EV
--- NOTE | 2017-08-07 16:30 | Progress Note ---
DATE: August 07, 2017 PULMONARY MEDICINE PROGRESS NOTE SUBJECTIVE: Ms. Radha James was seen and examined at bedside. She is currently with 100% oxygen saturation, 5 liters per minute by nasal cannula. Patient still feels below her baseline although she is getting better. She is intermittently expectorating more phlegm recently. Oxygen saturation 86% on room air at rest, and this was noted today; so, she is qualified for home oxygen. REVIEW OF SYSTEMS: No headaches, no rash. OBJECTIVE VITAL SIGNS: Afebrile. Vital signs noted per electronic record. GENERALLY: No acute distress, alert, calm, although she is short of breath when mobilizing out of bed. HEENT: Normocephalic, atraumatic. NECK: Supple. Throat midline. LUNGS: Bilateral air entry, a few wheezes, decreased air entry mildly, a few crackles. CARDIOVASCULAR: S1 and S2. No murmurs, rubs or gallops. ABDOMINAL: Soft, nontender. EXTREMITIES: No clubbing, no cyanosis. There is stable edema, 2+ mainly. INTEGUMENT: With no rash, some venous stasis changes and some thinning of the dermis/epidermal layers. LABS: Updated labs show LALA negative. Furthermore, alpha-1 antitrypsin level was 174. IMPRESSION AND PLAN 1. Chronic obstructive pulmonary disease with exacerbation. 2. Asthma with exacerbation. 3. Low functional endurance, weakness, dyspnea. 4. Obesity. 5. Reported lung cancer and radiation therapy in 2017. 6. Active smoker. 7. Hypoxemia with respiratory failure, resolving but still left with chronic hypoxemia. Long-term oxygen therapy is ordered today. She needs serial followup after she leaves the hospital. Continue current steroids but start weaning further. Patient will need continued mobilization to help expectorate secretions. Antibiotics will be stopped. Will follow along closely. DVT prophylaxis ongoing. Discharge planning will be done. Job#: [id number] EV
[2017-08-07] MEDS: ENOXAPARIN SOD INJ 40 MG/0.4 ML SYR SC SCH (16:58)
[2017-08-07] MEDS: ATORVASTATIN 40 MG TAB PO SCH (21:30)
[2017-08-08] MEDS: TRAMADOL HCL 50 MG TAB PO PRN (00:10)
[2017-08-08] MEDS: IPRATROPIUM BROMIDE 0.02% 2.5 ML NEB NEB SCH ×6 (00:40→20:10)
[2017-08-08] MEDS: ALBUTEROL SULF 0.083% NEB SOLN 3 ML NEB NEB SCH ×6 (00:40→20:10)
[2017-08-08 04:01] VITALS: BP 126/73
[2017-08-08 07:05] VITALS: BP 146/77
[2017-08-08 07:30] VITALS: BP 146/77
[2017-08-08] MEDS: ASPIRIN 81 MG ENTERIC COATED PO SCH (08:45)
[2017-08-08] MEDS: BENZONATATE 100 MG CAP PO SCH ×2 (08:46→17:00)
[2017-08-08] MEDS: PREDNISONE 20 MG TAB PO SCH (08:46)
[2017-08-08 11:53] VITALS: BP 142/76
--- NOTE | 2017-08-08 14:01 | Progress Note ---
DATE: August 08, 2017 PULMONARY MEDICINE PROGRESS NOTE SUBJECTIVE: Ms. James was seen and examined at bedside. She continues to feel better. The patient continues to have a lot of wheezing. She has early dyspnea. However, the secretions have really come up over the last day. The patient overall is slightly feeling better. REVIEW OF SYSTEMS: No bleeding. No diarrhea. OBJECTIVE VITAL SIGNS: Afebrile. Vital signs noted per electronic record. GENERALLY: No acute distress, alert and calm. HEENT: Normocephalic, atraumatic. NECK: Supple. Throat midline. LUNGS: Bilateral air entry, a few rhonchi. CARDIOVASCULAR: S1 and S2. No murmurs, rubs or gallops. ABDOMINAL: Soft, nontender. EXTREMITIES: No clubbing, no cyanosis. There is stable edema. INTEGUMENT: No rash. No purpura. LABS: No new updates. IMPRESSION AND PLAN 1. Asthma with exacerbation. 2. Chronic obstructive pulmonary disease with exacerbation. 3. Chronic allergic rhinitis. 4. Visual edema. 5. Suspected pulmonary hypertension. 6. Significant hypoxemia. Continue to mobilize the patient. Encourage expectoration. Acapella CPT. As her oxygen gets better, we will consider if she is ready for discharge. Medical records were requested from [facility] at the request of the patient. Will follow along closely. Job#: [id number]
[2017-08-08] MEDS: SALINE 0.65% NAS SOLN 1 SPRAY BTL SCH ×3 (15:28→21:03)
[2017-08-08 17:29] VITALS: BP 134/72
[2017-08-08 19:57] VITALS: BP 130/69
[2017-08-08] MEDS: ATORVASTATIN 40 MG TAB PO SCH (21:04)
[2017-08-08] MEDS: ENOXAPARIN SOD INJ 40 MG/0.4 ML SYR SC SCH (21:08)
[2017-08-09 00:10] VITALS: BP 135/60
[2017-08-09 04:15] VITALS: BP 140/72
[2017-08-09] MEDS: TRAMADOL HCL 50 MG TAB PO PRN (06:44)
[2017-08-09] MEDS: IPRATROPIUM BROMIDE 0.02% 2.5 ML NEB NEB SCH ×2 (07:00→11:00)
[2017-08-09] MEDS: ALBUTEROL SULF 0.083% NEB SOLN 3 ML NEB NEB SCH ×2 (07:00→11:00)
[2017-08-09 07:58] VITALS: BP 133/83
[2017-08-09] MEDS: SALINE 0.65% NAS SOLN 1 SPRAY BTL SCH ×2 (09:00→15:00)
[2017-08-09] MEDS: PREDNISONE 20 MG TAB PO SCH (09:27)
[2017-08-09] MEDS: BENZONATATE 100 MG CAP PO SCH (09:27)
[2017-08-09] MEDS: ASPIRIN 81 MG ENTERIC COATED PO SCH (09:27)
--- NOTE | 2017-08-09 11:35 | Cardiology Report ---
DATE OF STUDY: August 03, 2017 DOPPLER SCAN OF LOWER EXTREMITY VEINS Lower extremity veins were interrogated using the duplex scanning method. The veins were compressible. There was no definite deep venous thrombosis. CONCLUSIONS: No definite deep venous thrombosis involving the lower extremity veins bilaterally. Job#: [id number] CC: CARMELO CAMPBELL MD
[2017-08-09 12:00] VITALS: BP 126/67
--- NOTE | 2017-08-09 12:50 | Progress Note ---
DATE: August 09, 2017 PULMONARY MEDICINE PROGRESS NOTE SUBJECTIVE: Mrs. James was seen and examined at bedside. She feels slightly better. She is intermittently expectorating secretions. However, she is still with 79% oxygen saturation on room air at rest. I discussed with her outside doctor at [facility]. FEV1 0.80 liters, 40%; FVC 1.42 liters, 56%; decreased ratio. No significant bronchodilator change. RV 197%, TLC 118%, diffusion capacity 10.01 or 52% predicted. These PFTs were from July 18, 2017. Patient with PET scan on July 03, 2017, demonstrating right lower lobe 1.3 x 1.1 cm nonhypermetabolic ground-glass opacities which are less dense compared to previous, right hilum SUV 3.6 without discrete lymph node, T5 recent compression fracture. SUV there was 4.1. Patient went for MRI which did not show any discrete mass although there was mild central canal stenosis at L3 to L5 noted. Previous January 2017 [address] showed 1.5 x 1.1 cm right lower lobe ground-glass opacities suggesting minimal growth since the [address] REVIEW OF SYSTEMS: No headaches, no bleeding. OBJECTIVE VITAL SIGNS: Afebrile. Vital signs noted per electronic record. GENERALLY: No acute distress, alert and calm although she has very early dyspnea. HEENT: Normocephalic, atraumatic. NECK: Supple. Throat midline. LUNGS: Bilateral air entry is decreased. Mild to moderate wheezing, rare rhonchi. CARDIOVASCULAR: S1 and S2. No murmurs, rubs or gallops. ABDOMINAL: Soft, nontender. EXTREMITIES: No clubbing, no cyanosis. Has had stable edema. INTEGUMENT: No rash. No purpura. LABS: Potassium 2.4. This was from August 06, 2017. IMPRESSION AND PLAN 1. Asthma with exacerbation. 2. Chronic obstructive pulmonary disease with exacerbation. 3. Decreased functional capacity, early-onset dyspnea. 4. Hypoxemia. Continue at this time the oxygen supplement. Continue to mobilize the patient. Encourage expectoration. She is using an Acapella CPT device. Continue the prednisone weaning. Bronchodilators will be continued. Job#: [id number] EV
--- NOTE | 2017-08-09 15:48 | Discharge Summary ---
PRIMARY CARE DOCTOR: Josue Mayo MD FINAL DIAGNOSIS: Acute respiratory failure, resolved. SECONDARY DIAGNOSES 1. Severe chronic obstructive pulmonary disease exacerbation. 2. Possible asthmatic exacerbation. 3. Hypertension. 4. Chronic respiratory failure. Home oxygen arranged. 5. Coronary artery disease. 6. Peripheral vascular disease. 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 Blancas, property preservation specialist. PROCEDURES/STUDIES PERFORMED: Chest CT and bilateral lower extremity venous Doppler. HISTORY: Per [facility] HOSPITAL COURSE: Initially, the patient was on BiPAP. She was able to come off of it; however, her progress was very slow. Therefore, bilateral lower extremity venous Doppler was done to rule out DVT, which was negative. Subsequently, CTA of the chest was done to rule out PE, which was negative as well. The patient underwent a full course of antibiotics. Home oxygen was arranged. The patient still has some dyspnea on exertion. However, this is possibly pretty much as good as it is going to get. The patient will go home today on home oxygen. The patient will also be on prednisone 20 mg daily. She was on 40 at the hospital. I will continue that until she sees her PCP or her [facility] property preservation specialist. There is a good chance she will need chronic steroids. The patient was seen and examined today. It took 32 minutes total to discharge this patient. CONDITION ON DISCHARGE: Improved. DISCHARGE MEDICATIONS: Please see medication reconciliation form. CARMELO CAMPBELL M.D. Job#: [id number] cc:JOSUE MAYO MD
[2017-08-09 16:00] VITALS: BP 123/59
[2017-08-09] MEDS ORDERED: PREDNISONE20 MG PO (16:52)
== END 2017-08-09 17:43 | disposition home or self-care (01) | DRG 189 ==
LOC: ER 15:43 → EDBD 15:43 → ERHOLD 18:56 → IMCU 20:50
PROVIDERS: ADMIT Internal Medicine; ATTEND Internal Medicine
DX: J96.21 Acute and chronic respiratory failure with hypoxia (principal); E87.2 Acidosis; E87.8 Other disorders of electrolyte and fluid balance, not elsewhere classified; E87.4 Mixed disorder of acid-base balance; J44.1 Chronic obstructive pulmonary disease with (acute) exacerbation; J45.901 Unspecified asthma with (acute) exacerbation; E86.0 Dehydration; I25.10 Atherosclerotic heart disease of native coronary artery without angina pectoris; I73.9 Peripheral vascular disease, unspecified; Z95.820 Peripheral vascular angioplasty status with implants and grafts; F17.210 Nicotine dependence, cigarettes, uncomplicated; E66.9 Obesity, unspecified; Z68.31 Body mass index [BMI] 31.0-31.9, adult; E87.6 Hypokalemia; Z85.118 Personal history of other malignant neoplasm of bronchus and lung
CPT/HCPCS: 36415; 36600; 71045; 71260; 80048; 80053; 81001; 82103; 82550; 82553; 82785; 82805; 82948; 83735; 83880; 84484; 85025; 85610; 85730; 86039; 86431; 87040; 87070; 87205; 93005; 93970; 94640; 96372; 97139; 99284; J0456; J1650; J2920; J2930; J7030; Q9967

== ENCOUNTER 2017-08-20 18:05 | Emergency (ER) | payer MEDICARE ==
[~2017-08-20] VITALS: Ht 152.4 cm; Wt 72.6 kg
[~2017-08-20 18:05] MED LIST: ADVAIR 500/501 EA INH; ALBUTEROL0.63 MG/3 INH; AMLODIPINE BESY10 MG PO; ASPIR 8181 MG PO; ATORVASTATIN CA20 MG PO; CLARITIN-D 241 EACH PO; ISOSORBIDE MONO30 MG PO; METOPROLOL TART50 MG PO; PREDNISONE10 M1 PO; PREDNISONE20 MG PO; PREMARIN0.625 MG VG; PROAIR HFA INH8.5 GM PO; SINGULAIR10 MG PO
--- OUTSIDE RECORDS SUMMARY | 2017-08-20 18:08 | XMS REPORT | Clinical Summary ---
Author Author ELA [employer] [facility] Address Unknown Phone Unavailable Care Team Providers Care Research Animal Attendant Name Role Phone PCP Unavailable Allergies Active Allergy Reactions Severity Noted Date Comments Varenicline Other (See Comments) High 02/28/2017 Paranoria, hallucinations, explosive anger Alendronate Shortness Of Breath High 03/02/2017 Patient states that she feel she"s having heart attack Penicillins Shortness Of Breath High 02/28/2017 Niacin Preparations Other (See Comments) 02/28/2017 Had UTI after taking, d/c meds Current Medications Prescription Sig. Disp. Refills Start End Date Status Date aspirin 81 MG EC tablet Take 81 mg by mouth Active daily. amLODIPine (NORVASC) 10 Take 10 mg by mouth Active MG tablet daily. cephalexin (KEFLEX) 250 Take 250 mg by mouth Active MG capsuleIndications: daily. Recurrent UTI atorvastatin (LIPITOR) 40 Take 40 mg by mouth Active MG tabletIndications: daily. hyperlipidemia loratadine (CLARITIN) 10 Take 10 mg by mouth daily Active mg tabletIndications: As needed only . Allergic Rhinitis isosorbide mononitrate Take 60 mg by mouth Active (IMDUR) 60 MG 24 hr daily. tabletIndications: Chronic Stable Angina Pectoris metoprolol (LOPRESSOR) 50 Take 50 mg by mouth every Active MG tabletIndications: 12 (twelve) hours. hypertension nitroglycerin (NITROSTAT) Place 0.4 mg under the Active 0.4 MG SL tongue every 5 (five) tabletIndications: Angina minutes as needed for Chest pain Put 1 pill under tongue every 5min as needed for chest pain.No more than 3 doses in 15min.Call 911 if pain is unrelieved 5min after 1st dose . conjugated estrogens Place 0.5 g vaginally 3 Active (PREMARIN) 0.625 mg/gram (three) times a week. vaginal creamIndications: Postmenopausal Urethral Atrophy albuterol (PROVENTIL) 2.5 Take 2.5 mg by Active mg /3 mL (0.083 %) nebulization every 6 nebulizer (six) hours as needed for solutionIndications: Wheezing. Acute Asthma Attack albuterol HFA (VENTOLIN Inhale 2 puffs by mouth Active HFA) 90 mcg/actuation via inhaler every 6 (six) inhaler hours as needed for Wheezing. Active Problems Problem Noted Date Lung nodule 03/02/2017 Pneumothorax after biopsy 03/02/2017 Hypotension due to drugs 03/02/2017 Chronic bronchitis (HCC) 03/02/2017 Encounters Date Type Specialty Care Team Description 03/02/2017 Orders Only Lab Taras Evans MD Lung nodule (Primary Dx) 03/02/2017 Hospital Cardiology Taras Evans MD Lung nodule - Encounter Jonathan Black MD 03/03/2017 03/02/2017 Orders Only Lab Korey Cedillo MD Lung nodule 02/21/2017 Outside Orders Central Scheduling Taras Evans MD Lung nodule (Primary Dx) after 08/19/2016 Social History Tobacco Use Types Packs/Day Years Used Date Current Every Day Smoker 1 Smokeless Tobacco: Current User Tobacco Cessation: Counseling Given: Yes Comments: using Nicotine patch, patient states she"s trying Alcohol Use Drinks/Week oz/Week Comments Yes 3 Cans of 1.8 beer Sex Assigned at Date Recorded Not on file Last Filed Vital Signs Vital Sign Reading Time Taken Blood Pressure 133/62 03/03/2017 8:13 PM CDT Pulse 60 03/03/2017 8:51 PM CDT Temperature 36 C (96.8 F) 03/03/2017 8:13 PM CDT Respiratory Rate 20 03/03/2017 8:51 PM CDT Oxygen Saturation 92% 03/03/2017 8:51 PM CDT Inhaled Oxygen - - Concentration Weight 73.9 kg (162 lb 14.4 oz) 03/03/2017 6:00 AM CDT Height 152.4 cm (5') 03/02/2017 11:25 AM CDT Body Mass Index 31.81 03/03/2017 6:00 AM CDT Plan of Treatment Not on file Results * RHYTHM STRIP - SCAN (03/06/2017 3:00 PM) * XR chest 1 view portable / bedside (03/03/2017 6:08 PM) Only the most recent of 4 results within the time period is included. Specimen Performing Laboratory GE RIS Narrative FINAL REPORT EXAMINATION:AP PORTABLE CHEST RADIOGRAPH CLINICAL INDICATION: Chest tube removal IMPRESSION: Compared with 03/03/2017, 1726 hours. No definite evidence of a large pneumothorax following chest tube removal. However, evaluation for a small residual pneumothorax is limited by AP portable technique and patient's body habitus. Consider short-term imaging surveillance. Alternatively, a chest CT could be performed. Signed: Jamil López MD Report Verified Date/Time:03/03/2017 21:47:16 Reading Location: [address] Reading Room Procedure Note Interface, External Ris In - 03/03/2017 9:49 PM CDT FINAL REPORT EXAMINATION: AP PORTABLE CHEST RADIOGRAPH CLINICAL INDICATION: Chest tube removal IMPRESSION: Compared with 03/03/2017, 1726 hours. No definite evidence of a large pneumothorax following chest tube removal. However, evaluation for a small residual pneumothorax is limited by AP portable technique and patient's body habitus. Consider short-term imaging surveillance. Alternatively, a chest CT could be performed. Signed: Jamil López MD Report Verified Date/Time: 03/03/2017 21:47:16 Reading Location: [address] Reading Room * XR chest PA or AP 1 view in dept (03/02/2017 2:33 PM) Specimen Performing Laboratory GE RIS Narrative FINAL REPORT Chest one view compared to July 15, 2002 Discussion: Right-sided pigtail pleural drain is present with no visible effusion or pneumothorax after lung biopsy. 1 cm focal opacity is seen in the right mid chest corresponding with a focal region of pleural thickening present on CT. IMPRESSIONS: No visible pneumothorax. Signed: Libertad Romo MD Report Verified Date/Time:03/02/2017 15:03:39 Reading Location: [facility] [id number] Consult Reading Room Procedure Note Interface, External Ris In - 03/02/2017 3:05 PM CDT FINAL REPORT Chest one view compared to July 15, 2002 Discussion: Right-sided pigtail pleural drain is present with no visible effusion or pneumothorax after lung biopsy. 1 cm focal opacity is seen in the right mid chest corresponding with a focal region of pleural thickening present on CT. IMPRESSIONS: No visible pneumothorax. Signed: Libertad Romo MD Report Verified Date/Time: 03/02/2017 15:03:39 Reading Location: [facility] [id number] Consult Reading Room * CT biopsy lung (03/02/2017 2:13 PM) Specimen Performing Laboratory GE RIS Narrative FINAL REPORT PROCEDURE: CT-guided core biopsy of right lower lobe subsolid lung nodule with subsequent CT-guided placement of right pleural drainage catheter. Dose modulation, iterative reconstruction, and/or weight-based adjustment of the mA/kV was utilized to reduce the radiation dose to as low as reasonably achievable. INDICATION: 35-year-old woman with lung nodule. COMPARISON: None. ANESTHESIA: Intravenous moderate sedation was administered by radiology nursing. Continuous hemodynamic and respiratory monitoring was performed, including the use of pulse oximetry. Total intraservice time of sedation was 45 minutes. MEDICATIONS: 0.5 mg Versed, 25 mcg fentanyl DESCRIPTION: After obtaining informed written consent, the patient [...] space. The needle was removed. An 8 Czech all-purpose drainage catheter was threaded over the wire and into the pleural space after serial dilatation of the tract with 6 and 8 Czech dilators. The wire was removed. The catheter was affixed to the skin and connected to Pleur-evac. Post procedure CT scan showed near complete resolution of the right pneumothorax. IMPRESSION: CT-guided core biopsy of right lower lobe nodule, complicated by postprocedural pneumothorax. Uncomplicated CT-guided placement of 8 Czech pleural drainage catheter on the right with near complete resolution of pneumothorax on postprocedural CT scan. Signed: Kentrell Velasco MD Report Verified Date/Time:03/02/2017 15:45:51 Reading Location: [address] Body Reading Room Procedure Note Interface, External Ris In - 03/02/2017 3:48 PM CDT FINAL REPORT PROCEDURE: CT-guided core biopsy of right lower lobe subsolid lung nodule with subsequent CT-guided placement of right pleural drainage catheter. Dose modulation, iterative reconstruction, and/or weight-based adjustment of the mA/kV was utilized to reduce the radiation dose to as low as reasonably achievable. INDICATION: 35-year-old woman with lung nodule. COMPARISON: None. ANESTHESIA: Intravenous moderate sedation was administered by radiology nursing. Continuous hemodynamic and respiratory monitoring was performed, including the use of pulse oximetry. Total intraservice time of sedation was 45 minutes. MEDICATIONS: 0.5 mg Versed, 25 mcg fentanyl DESCRIPTION: After obtaining informed written consent, the patient [...] space. The needle was removed. An 8 Czech all-purpose drainage catheter was threaded over the wire and into the pleural space after serial dilatation of the tract with 6 and 8 Czech dilators. The wire was removed. The catheter was affixed to the skin and connected to Pleur-evac. Post procedure CT scan showed near complete resolution of the right pneumothorax. IMPRESSION: CT-guided core biopsy of right lower lobe nodule, complicated by postprocedural pneumothorax. Uncomplicated CT-guided placement of 8 Czech pleural drainage catheter on the right with near complete resolution of pneumothorax on postprocedural CT scan. Signed: Kentrell Velasco MD Report Verified Date/Time: 03/02/2017 15:45:51 Reading Location: [address] Body Reading Room * Tissue Exam (03/02/2017 1:13 PM) Component Value Ref Range Case Report Surgical Pathology Report Case: [id number] Authorizing Provider: Taras Evans MD Collected: 03/02/2017 1313 Ordering Location: [facility] Radiology Main Received: 03/02/2017 7966 Pathologist: Adebayo Mosqueda MD Specimen: Lung, Right Lower Lobe, RT LOWER LOBE DIAGNOSIS LUNG, RIGHT LOWER LOBE, CT-GUIDED BIOPSY: - ATYPICAL BRONCHIOLOALVEOLAR PROLIFERATION (SEE COMMENT) Signing Pathologist Direct Phone Line: [phone] COMMENT Multiple levels of the biopsy show an atypical bronchioloalveolar proliferation. If this lesion is greater than 0.5 cm, it can be classified as an adenocarcinoma with a lepidic pattern. If the lesion is less than 0.5 cm, a diagnosis of atypical adenomatous hyperplasia is favored. Therefore, clinical correlation is recommended. Dr. Fabián Ley from [facility] had reviewed this case and concurs with the findings. CPT Code(s) 27643 CLINICAL HISTORY Right lower lobe nodule SPECIMEN SOURCE Right lower lobe CT lung biopsy GROSS DESCRIPTION The specimen is received in a formalin-filled container and labeled with the patient's information and labeled "CT lung biopsy right lower lobe" and consists of two sofia-red core biopsy ranging in length from 0.5 to 1 cm, submitted entirely A1. CG/pl MICROSCOPIC DESCRIPTION Performed. Specimen Performing Laboratory Tissue - Lung, [facility] Lower Lobe [address] [place] [id number] * PT/aPTT (03/02/2017 10:43 AM) Component Value Ref Range Protime 12.6 11.7 - 14.7 seconds INR 1.0 <=5.9 PTT 33.0 22.5 - 36.0 seconds Specimen Performing Laboratory Blood [address] [address] Narrative RECOMMENDED COUMADIN/WARFARIN INR THERAPY RANGES STANDARD DOSE: 2.0 - 3.0 Includes: PROPHYLAXIS for venous thrombosis, systemic embolization; TREATMENT for venous thrombosis and/or pulmonary embolus. HIGH RISK: Target INR is 2.5-3.5 for patients with mechanical heart valves. * Platelet count (03/02/2017 10:43 AM) Component Value Ref Range Platelets 186 150 - 450 K/CU MM Specimen Performing Laboratory Blood [address] [address] after 08/19/2016
--- OUTSIDE RECORDS SUMMARY | 2017-08-20 18:09 | XMS REPORT | Continuity of Care Document ---
Author Author [facility] Organization [facility] Address [address] [place] [address] Phone Unavailable Care Team Providers Care Director Of Maternity Services Name Role Phone NONSTAFF PCP Unavailable Insurance Providers Guarantor Jennifer James Address [address] [place] [address] Email NONE Payer [employer] Medicare Advantage Policy Number [id number] Subscriber's Name Maxim Jameshell Relationship 18 Self / Same As Patient Effective Date 14 Advance Directives Directive Response Recorded Date/Time Does the patient have an advance directive? No 07/31/17 4:59pm If yes, is advance directive on file with [facility]? No 07/31/17 4:59pm If not on file with [facility] will patient provide a copy? No 07/31/17 4:59pm Do you have a Directive to Physician? No 07/31/17 4:59pm Do you have a Medical Power of Golf Cart Repairer? No 07/31/17 4:59pm Do you have an out of hospital Do Not Resuscitate Order? No 07/31/17 4:59pm Do you have any special needs we should be aware of? No 07/31/17 4:59pm Do you have a support person here with you today? Yes 07/31/17 4:59pm Did patient receive Notice of Privacy Practices? Yes 07/31/17 4:59pm Did patient receive patient rights and responsibilities? Yes 07/31/17 4:59pm Problems No problem information available. Medications Current Home Medications Medication Dose Units Route Directions Days Qty Instructions Start Date Albuterol Sulfate 0.63 Mg/3 Ml Vial.neb 1 Inh Inhalation Every 6 Hours Albuterol Sulfate (Proair Hfa Inhaler*) 8.5 Gm Inh 2 Inh Oral Every 4 Hours as needed for Shortness Of Breath 1 Inhaler 08/02/17 Amlodipine Besylate 10 Mg Tablet 10 Mg Oral Daily 30 Tab Aspirin (Aspir 81) 81 Mg Tablet.dr 81 Mg Oral Daily Atorvastatin Calcium 20 Mg Tablet 40 Mg Oral Bedtime 30 Tab Estrogens Conjugated (Premarin) 0.625 Mg Tab 0.625 Mg Vaginal 3XWEEK 30 Tab MWF Isosorbide Mononitrate (Isosorbide Mononitrate Er) 30 Mg Tab.er.24h 60 Mg Oral Daily 30 Tab Loratadine/Pseudoephedrine (Claritin-D 24 Hour Tablet) 1 Each Tab.er.24h 10 Mg Oral Daily as needed for Allergy 30 Tab Montelukast Sodium (Singulair) 10 Mg Tablet 10 Mg Oral Daily 30 Days 08/02/17 Prednisone 10 Mg Tab.ds.pk 0 Oral Daily 10 Days 19 Tab Take 3 tablets daily x 3 days, then 2 tablets daily x 3 days, then 1 tablet daily x 4 days then stop 08/02/17 Prednisone 20 Mg Tab 20 Mg Oral Daily 30 Tab Salmeterol Xinafoate/Fluticasone (Advair 500/50*) 1 Ea Aerp 1 Inh Inhalation Every 12 Hours 1 Inhaler 08/02/17 Past Home Medications Medication Directions Ordered Status Metoprolol Tartrate 50 Mg Tablet, 50 Mg Oral Every 12 Hours Discontinued Social History Social History Problem Response Recorded Date/Time Onset Date Status Hx Psychiatric Problems No 07/31/2017 10:44pm Not Applicable Not Applicable Hx Eating Disorder No 07/31/2017 10:44pm Not Applicable Not Applicable Hx Alcohol Use N - drinks occasionally 07/31/2017 10:44pm Not Applicable Not Applicable Smoking Status Start Date Stop Date Current every day smoker Hospital Discharge Instructions No hospital discharge instruction information available. 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 August 01, 2017 1:58pm Assistive Devices None July 31, 2017 10:55pm Ambulation Ability Standby Assistance July 31, 2017 10:55pm Toileting Ability Independent August 09, 2017 12:00pm Allergies, Adverse Reactions, Alerts Allergen Type Severity Reaction Status Last Updated Penicillin Allergy Unknown Active 07/31/17 Niacin Allergy Unknown Active 07/31/17 Alendronate sodium Allergy Unknown Active 07/31/17 Varenicline Allergy Unknown Active 07/31/17 Immunizations No immunization information available. Vital Signs Acute Vital Signs Vital Response Date/Time Temperature (Fahrenheit) 98.0 degrees F (97.6 - 99.5) 08/09/2017 4:00pm Pulse Pulse Rate (adult) 86 bpm (60 - 90) 08/09/2017 4:00pm Respiratory Rate 18 bpm (12 - 24) 08/09/2017 4:00pm Blood Pressure 123/59 mm Hg 08/09/2017 4:00pm Height 5 ft 0 in 07/31/2017 10:44pm Weight 160.31 lb 07/31/2017 10:44pm Body Mass Index 31.3 kg/m^2 07/31/2017 10:44pm Results Laboratory Results Test Name Result Units Flags Reference Collection Date/Time Result Date/ Time Comments White Blood Count 6.13 x10e3/uL # 4.8-10.8 08/06/2017 6:05am 08/06/2017 6 :35am Red Blood Count 4.08 x10e6/uL 3.6-5.1 08/06/2017 6:05am 08/06/2017 6: 35am Hemoglobin 13.3 g/dL 12.0-16.0 08/06/2017 6:05am 08/06/2017 6:35am Hematocrit 39.3 % 34.2-44.1 08/06/2017 6:05am 08/06/2017 6:35am Mean Corpuscular Volume 96.3 fL 81-99 08/06/2017 6:05am 08/06/2017 6: 35am Mean Corpuscular Hemoglobin 32.6 pg H 28-32 08/06/2017 6:05am 2017 6:35am Mean Corpuscular Hemoglobin Concent 33.8 g/dL 31-35 08/06/2017 6:05am 08/06/2017 6:35am Red Cell Distribution Width 12.3 % 11.7-14.4 08/06/2017 6:05am 2017 6:35am Platelet Count 202 x10e3/uL 140-360 08/06/2017 6:05am 08/06/2017 6: 35am Neutrophils (%) (Auto) 85.7 % H 38.7-80.0 08/06/2017 6:05am 08/06/2017 6 :35am Lymphocytes (%) (Auto) 8.0 % L 18.0-39.1 08/06/2017 6:05am 08/06/2017 6: 35am Monocytes (%) (Auto) 4.2 % L 4.4-11.3 08/06/2017 6:05am 08/06/2017 6: 35am Eosinophils (%) (Auto) 0.0 % 0.0-6.0 08/06/2017 6:05am 08/06/2017 6: 35am Basophils (%) (Auto) 0.3 % 0.0-1.0 08/06/2017 6:05am 08/06/2017 6:35am IM GRANULOCYTES % 1.8 % H 0.0-1.0 08/06/2017 6:05am 08/06/2017 6:35am Neutrophils # (Auto) 5.3 2.1-6.9 08/06/2017 6:05am 08/06/2017 6:35am Lymphocytes # (Auto) 0.5 L 1.0-3.2 08/06/2017 6:05am 08/06/2017 6: 35am Monocytes # (Auto) 0.3 0.2-0.8 08/06/2017 6:05am 08/06/2017 6:35am Eosinophils # (Auto) 0.0 0.0-0.4 08/06/2017 6:05am 08/06/2017 6:35am Basophils # (Auto) 0.0 0.0-0.1 08/06/2017 6:05am 08/06/2017 6:35am Absolute Immature Granulocyte (auto 0.11 x10e3/uL H 0-0.1 08/06/2017 6: 05am 08/06/2017 6:35am Prothrombin Time 12.7 seconds 11.9-14.5 07/31/2017 3:50pm 07/31/2017 4: 29pm Prothromb Time International Ratio 1.03 07/31/2017 3:50pm 2017 4:29pm Oral Anticoagulant Therapy INR Values: 1. Low Intensity Therapy 1.5 - 2.0 2. Moderate Intensity Therapy 2.0 - 3.0 3. High Intensity Therapy(1) 2.5 - 3.5 4. High Intensity Therapy(2) 3.0 - 4.0 5. Panic Value INR > 5.0 Activated Partial Thromboplast Time 26.9 seconds 23.8-35.5 08/07/2017 5: 40am 08/07/2017 6:36am Urine Color YELLOW YELLOW 08/04/2017 3:50pm 08/04/2017 3:58pm Urine Clarity SL CLOUDY CLEAR 08/04/2017 3:50pm 08/04/2017 3:58pm Urine Specific [place] 1.005 L 1.010-1.025 08/04/2017 3:50pm 2017 3:58pm Urine pH 7 5 - 7 08/04/2017 3:50pm 08/04/2017 3:58pm Urine Leukocyte Esterase NEGATIVE NEGATIVE 08/04/2017 3:50pm 2017 3:58pm Urine Nitrite NEGATIVE NEGATIVE 08/04/2017 3:50pm 08/04/2017 3:58pm Urine Protein NEGATIVE NEGATIVE 08/04/2017 3:50pm 08/04/2017 3:58pm Urine Glucose (UA) NEGATIVE NEGATIVE 08/04/2017 3:50pm 08/04/2017 3: 58pm Urine Ketones NEGATIVE NEGATIVE 08/04/2017 3:50pm 08/04/2017 3:58pm Urine Urobilinogen 0.2 mg/dL 0.2 - 1 08/04/2017 3:50pm 08/04/2017 3: 58pm Urine Bilirubin NEGATIVE NEGATIVE 08/04/2017 3:50pm 08/04/2017 3: 58pm Urine Blood TRACE H NEGATIVE 08/04/2017 3:50pm 08/04/2017 3:58pm Urine WBC 0-5 /HPF 0-5 08/04/2017 3:50pm 08/04/2017 4:09pm Urine RBC 0-5 /HPF 0-5 08/04/2017 3:50pm 08/04/2017 4:09pm Urine Bacteria RARE /HPF NONE 08/04/2017 3:50pm 08/04/2017 4:09pm Urine Epithelial Cells MODERATE /LPF NONE 08/04/2017 3:50pm 08/04/2017 4:09pm Sodium Level 139 mmol/L 136-145 08/06/2017 6:05am 08/06/2017 6:46am Potassium Level 3.4 mmol/L L 3.5-5.1 08/06/2017 6:05am 08/06/2017 6: 46am Chloride Level 97 mmol/L L 98-107 08/06/2017 6:05am 08/06/2017 6:46am Carbon Dioxide Level 34 mmol/L H 22-29 08/06/2017 6:05am 08/06/2017 6: 46am Anion Gap 11.4 mmol/L 8-16 08/06/2017 6:05am 08/06/2017 6:46am Blood Urea Nitrogen 12 mg/dL 7-26 08/06/2017 6:05am 08/06/2017 6:46am Creatinine 0.63 mg/dL 0.57-1.11 08/06/2017 6:05am 08/06/2017 6:46am BUN/Creatinine Ratio 19 6-25 08/06/2017 6:05am 08/06/2017 6:46am Estimat Glomerular Filtration Rate > 60 ML/MIN 60- 08/06/2017 6:05am 6:46am Ranges were taken from the National Kidney Disease Education Program and the National Kidney Foundation literature. Reference ranges: 60 or greater: Normal 16-59 (for 3 consecutive months): Chronic kidney disease 15 or less: Kidney failure Glucose Level 224 mg/dL H 74-118 08/06/2017 6:05am 08/06/2017 6:46am Calcium Level 8.8 mg/dL 8.4-10.2 08/06/2017 6:05am 08/06/2017 6:46am Bedside Glucose 225 mg/dL H 70-120 08/06/2017 5:52am 08/06/2017 6:06am Meter ID: [id number] Magnesium Level 1.9 MG/DL 1.3-2.1 08/06/2017 6:05am 08/06/2017 6:46am Total Bilirubin 0.5 mg/dL 0.2-1.2 07/31/2017 3:50pm 07/31/2017 4:38pm Aspartate Amino Transf (AST/SGOT) 27 IU/L 5-34 07/31/2017 3:50pm 2017 4:38pm Alanine Aminotransferase (ALT/SGPT) 22 IU/L 0-55 07/31/2017 3:50pm 04/2018 4:38pm Total Protein 7.3 g/dL 6.5-8.1 07/31/2017 3:50pm 07/31/2017 4:38pm Albumin 3.3 g/dL L 3.5-5.0 07/31/2017 3:50pm 07/31/2017 4:38pm Globulin 4.0 g/dL H 2.3-3.5 07/31/2017 3:50pm 07/31/2017 4:38pm Albumin/Globulin Ratio 0.8 0.8-2.0 07/31/2017 3:50pm 07/31/2017 4: 38pm Alkaline Phosphatase 89 IU/L 40-150 07/31/2017 3:50pm 07/31/2017 4: 38pm B-Type Natriuretic Peptide 154.7 pg/mL H 0-100 07/31/2017 3:50pm 2017 4:48pm Creatine Kinase 41 IU/L 29-168 07/31/2017 3:50pm 07/31/2017 4:38pm Creatine Kinase MB 1.40 ng/mL 0-5.0 07/31/2017 3:50pm 07/31/2017 4: 44pm Troponin I 0.003 ng/mL 0-0.300 07/31/2017 3:50pm 07/31/2017 4:44pm Arterial Blood pH 7.38 7.31-7.41 07/31/2017 5:45pm 07/31/2017 5:54pm Arterial Blood Partial Pressure CO2 41 mmHg 41-51 07/31/2017 5:45pm 04/2018 5:54pm Arterial Blood Partial Pressure O2 53 mmHg L 80-105 07/31/2017 5:45pm 5:54pm Arterial Blood HCO3 24 mmol/L 23-28 07/31/2017 5:45pm 07/31/2017 5: 54pm Arterial Blood Base Excess -1.0 mmol/L -2 - 3 07/31/2017 5:45pm 2017 5:54pm Arterial Blood Oxygen Saturation 86.0 % L 95-98 07/31/2017 5:45pm 2017 5:54pm Aqatr-8-Lcddiqaxrmi 174 mg/dL 90-200 08/04/2017 5:55am 08/06/2017 9: 43pm Performed at: [facility] [address] [address], [place], [place] [id number] Traffic Worker: NITIN Salvador MD, Phone: [phone] Anti-Nuclear Antibody Screen Negative . 08/04/2017 5:55am 08/06/2017 12:00am Negative <1:80 Borderline 1:80 Positive >1:80 Performed at: [facility] [employer] [id number] Traffic Worker: Panda Doshi MD, Phone: [phone] Rheumatoid Factor <10.0 IU/mL 0.0-13.9 08/04/2017 5:55am 08/05/2017 7: 45am Performed at: [facility] [id number] Traffic Worker: Panda Doshi MD, Phone: [phone] Microbiology Results Procedure Source Organism/Result Collection Date/Time Result Date/Time Result Status Blood Culture Blood NO GROWTH AFTER 5 DAYS, FINAL REPORT 07/31/2017 3:50pm 08/05/2017 4:23pm Final Procedures Procedure Status Date Provider(s) Computed tomography of chest with contrast Active 08/04/17 TRINITY DIAZ MD Encounters Encounter Location Arrival/Admit Date Discharge/Depart Date Attending Provider Discharged Inpatient [facility] 07/31/17 6:56pm 08/09/17 5:43pm CARMELO CAMPBELL MD
--- NOTE | 2017-08-20 19:23 | Diagnostic Imaging Report ---
ABDOMEN-1VIEW (KUB) Clinical history: Constipation, small bowel obstruction Technique: AP view abdomen, supine Comparison: CT chest 08/04/2017 Findings: No differentially dilated loops of bowel. Mild stool is seen within the colon. No supine evidence of free air. Incidental splenic and possibly liver calcification/calcified granulomas. Age-indeterminate L1 compression deformity. Vascular calcifications. Bilateral inguinal clips. Impression: Nonobstructive bowel gas pattern. Signed by: Dr Sandi Gonzalez MD on 08/20/2017 7:20 PM
== END 2017-08-20 19:53 | disposition home or self-care (01) ==
LOC: ER 18:05
DX: R10.2 Pelvic and perineal pain (principal); K59.00 Constipation, unspecified; I10 Essential (primary) hypertension; J44.9 Chronic obstructive pulmonary disease, unspecified; I25.10 Atherosclerotic heart disease of native coronary artery without angina pectoris; Z85.118 Personal history of other malignant neoplasm of bronchus and lung
CPT/HCPCS: 74018; 99284

== ENCOUNTER 2019-11-27 22:11 | Observation (INO) | payer MEDICARE ==
[~2019-11-27] VITALS: Ht 152.4 cm; Wt 72.6 kg
[2019-11-27] MEDS ORDERED: ALBUTEROL SULF 0.083% NEB SOLN 3 ML NEB NEB STA (22:23)
[2019-11-27] MEDS ORDERED: IPRATROPIUM BROMIDE 0.02% 2.5 ML NEB NEB ONE (22:30)
[2019-11-27] MEDS ORDERED: METHYLPREDNISOLONE SOD SUCC 125 MG/2ML VIAL IV ONE (22:30)
--- NOTE | 2019-11-27 22:48 | Emergency Department Note ---
History of Present Illnes History of Present Illness Chief Complaint: Respiratory History of Present Illness This is a 69 year old female RESENTS TO THE ER C/O SOB ONSET ON 11/23/19; PT STATES WHEN HER HER ALLERGIES GET BAD, HER COPD AND CHRONIC BRONCHITIS FLARES UP; DENIES CP; DENIES FEVER/CHILLS; REPORTS TAKING INH Q2 HRS . Historian: Patient Arrival Mode: Car Onset (how long ago): day(s) (4) Location: LUNGS Quality: SOB, WHEEZING Radiation: Reports non-radiation Severity: moderate Onset quality: gradual Duration (how long): day(s) (4) Timing of current episode: constant Progression: unchanged Chronicity: recurrent Context: Denies recent illness, Denies recent surgery Relieving factors: other (SLIGHT IMPROVEMENT WITH NEB TREATMENTS AT HOME) Exacerbating factors: movement Associated symptoms: Reports denies other symptoms Treatments prior to arrival: other (NEB TREATMENTS AT HOME) Past Medical/Family History Physician Review I have reviewed the patient's past medical and family history. Any updates have been documented here. 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 Social History Smoking Cessation: Current every day smoker Alcohol Use: None Family History Family history of heart diseas: No Other Last Tetanus: <10 YRS Review of Systems Review of Systems Constitutional: Reports no symptoms EENTM: Reports no symptoms Cardiovascular: Reports no symptoms Respiratory: Reports as per HPI, Reports wheezing Gastrointestinal: Reports no symptoms Genitourinary: Reports no symptoms Musculoskeletal: Reports no symptoms Integumentary: Reports no symptoms Neurological: Reports no symptoms Psychological: Reports no symptoms Endocrine: Reports no symptoms Hematological/Lymphatic: Reports no symptoms Physical Exam Related Data Allergies: Coded Allergies: Penicillins (Verified Allergy, Unknown, 08/20/17) alendronate sodium (Verified Allergy, Unknown, 08/20/17) niacin (Verified Allergy, Unknown, 08/20/17) varenicline (Verified Allergy, Unknown, 08/20/17) Triage Vital Signs Vital Signs Date Time Temp Pulse Resp B/P (MAP) Pulse Ox O2 Delivery O2 Flow Rate FiO2 11/27/19 22:19 97.5 74 20 112/81 94 Room Air Vital signs reviewed: Yes Physical Exam CONSTITUTIONAL Constitutional: Present well-developed, Present well-nourished HENT HENT: Present normocephalic, Present atraumatic, Present oropharynx clear/moist, Present nose normal HENT L/R: Present left ext ear normal, Present right ext ear normal EYES Eyes: Reports PERRL, Reports conjunctivae normal NECK Neck: Present ROM normal PULMONARY Pulmonary: Present effort normal, Present other (MODERATE WHEEZING ALL 4 LUNG MAKI,); Absent respiratory distress CARDIOVASCULAR Cardiovascular: Present regular rhythm, Present heart sounds normal, Present capillary refill normal, Present normal rate GASTROINTESTINAL Abdominal: Present soft, Present nontender, Present bowel sounds normal GENITOURINARY Genitourinary: Present exam deferred SKIN Skin: Present warm, Present dry MUSCULOSKELETAL Musculoskeletal: Present ROM normal NEUROLOGICAL Neurological: Present alert, Present oriented x 3, Present no gross motor or sensory deficits PSYCHOLOGICAL Psychological: Present mood/affect normal, Present judgement normal Results Laboratory Laboratory Laboratory Tests Test 11/27/19 22:30 White Blood Count 4.20 x10e3/uL (4.8-10.8) Red Blood Count 4.42 x10e6/uL (3.6-5.1) Hemoglobin 14.0 g/dL (12.0-16.0) Hematocrit 41.8 % (34.2-44.1) Mean Corpuscular Volume 94.6 fL (81-99) Mean Corpuscular Hemoglobin 31.7 pg (28-32) Mean Corpuscular Hemoglobin Concent 33.5 g/dL (31-35) Red Cell Distribution Width 14.1 % (11.7-14.4) Platelet Count 195 x10e3/uL (140-360) Neutrophils (%) (Auto) 60.8 % (38.7-80.0) Lymphocytes (%) (Auto) 29.0 % (18.0-39.1) Monocytes (%) (Auto) 5.7 % (4.4-11.3) Eosinophils (%) (Auto) 3.6 % (0.0-6.0) Basophils (%) (Auto) 0.7 % (0.0-1.0) Neutrophils # (Auto) 2.6 (2.1-6.9) Lymphocytes # (Auto) 1.2 (1.0-3.2) Monocytes # (Auto) 0.2 (0.2-0.8) Eosinophils # (Auto) 0.2 (0.0-0.4) Basophils # (Auto) 0.0 (0.0-0.1) Absolute Immature Granulocyte (auto 0.01 x10e3/uL (0-0.1) Sodium Level 128 mmol/L (136-145) Potassium Level 4.1 mmol/L (3.5-5.1) Chloride Level 94 mmol/L (98-107) Carbon Dioxide Level 26 mmol/L (22-29) Anion Gap 12.1 mmol/L (8-16) Blood Urea Nitrogen 7 mg/dL (7-26) Creatinine 0.69 mg/dL (0.57-1.11) Estimat Glomerular Filtration Rate > 60 ML/MIN (60-) BUN/Creatinine Ratio 10 (6-25) Glucose Level 99 mg/dL (74-118) Calcium Level 8.9 mg/dL (8.4-10.2) Total Bilirubin 0.5 mg/dL (0.2-1.2) Aspartate Amino Transf (AST/SGOT) 21 IU/L (5-34) Alanine Aminotransferase (ALT/SGPT) 13 IU/L (0-55) Alkaline Phosphatase 58 IU/L (40-150) Creatine Kinase 60 IU/L (29-168) Creatine Kinase MB 4.70 ng/mL (0-5.0) Troponin I 0.013 ng/mL (0-0.300) Total Protein 6.8 g/dL (6.5-8.1) Albumin 3.2 g/dL (3.5-5.0) Globulin 3.6 g/dL (2.3-3.5) Albumin/Globulin Ratio 0.9 (0.8-2.0) Lab results reviewed: Yes Imaging Imaging results reviewed: Yes Impressions Procedure: [id number] DX/CHEST SINGLE (PORTABLE) Exam Date: 11/27/19 Exam Time: 2308 REPORT STATUS: Signed EXAMINATION: CHEST SINGLE (PORTABLE) INDICATION: Short of breath, wheezing, cough COMPARISON: Chest x-ray 08/02/2018 FINDINGS: TUBES and LINES: None. LUNGS: Hyperinflated lungs with flattened hemidiaphragms. Mild central bronchial wall thickening. Prominent central pulmonary vasculature. Left midlung benign calcified granuloma. PLEURA: No pleural effusion or pneumothorax. HEART AND MEDIASTINUM: Cardiac size is mildly enlarged. There are atherosclerotic calcifications within the aorta. Calcified mediastinal nodes. BONES AND SOFT TISSUES: Mandibular fixation hardware. Surgical clips in the neck. No acute osseous lesion. UPPER ABDOMEN: No free air under the diaphragm. IMPRESSION: Mild cardio megaly and pulmonary vascular congestion. Lung findings can be seen with bronchitis and emphysema/obstructive pulmonary disease. Signed by: Femi Rose DO on 11/27/2019 11:57 PM Procedures 12 Lead ECG Interpretation ECG Interpretation : ECG: ECG 1 Pen And Pencil Repairer: Interpreted by ED physician Date: Nov 27, 2019 Time: 22:26 Rhythm: sinus rhythm Rate: normal BPM: 78 QRS axis: normal ST segments normal: Yes T waves normal: Yes Other findings: no other findings Clinical Impression: normal ECG Assessment & Plan Medical Decision Making MDM PT WITH H/O COPD WITH SOB AND WHEEZING FOR 4 DAYS, CBC, CMP, EKG, CARDIAC ENZYMES, CXR ORDERED TO EVAL FOR PNEUMONIA, MYOCARDIAL INFARCTION, ELECTROLYTE ABNORMALITY ALBUTEROL NEB TIMES 2 ORDERED ATROVENT NEB TIMES 1 ORDERED SOLU-MEDROL 125 MG IV I SPOKE WITH DR CAMPBELL, PLACE IN OBS Reassessment Reassessment time: 01:20 Reassessment PT STILL WITH MODERATE WHEEZING DESPITE NEB TREATMENTS AND IV STEROIDS, Assessment & Plan Final Impression: (1) COPD exacerbation Last Vital Signs Date Time Temp Pulse Resp B/P (MAP) Pulse Ox O2 Delivery O2 Flow Rate FiO2 11/27/19 22:19 97.5 74 20 112/81 94 Room Air Home Meds Active Scripts Prednisone (PREDNISONE) 10 Mg Tab.ds.pk, 0 PO DAILY for 10 Days, #19 TAB Take 3 tablets daily x 3 days, then 2 tablets daily x 3 days, then 1 tablet daily x 4 days then stop Prov:TRINITY DIAZ MD, ABIM 08/02/17 Montelukast Sodium (SINGULAIR) 10 Mg Tablet, 10 MG PO DAILY for 30 Days, 0 Refills Prov:TRINITY DIAZ MD, ABIM 08/02/17 Salmeterol Xinaf/Fluticasone* (ADVAIR 500/50*) 1 Ea Aerp, 1 INH INH Q12H, #1 INH 0 Refills Prov:TRINITY DIAZ MD, ABIM 08/02/17 Albuterol Sulf* (PROAIR HFA INHALER*) 8.5 Gm Inh, 2 INH PO Q4HR PRN for SHORTNESS OF BREATH, #1 INH 0 Refills Prov:TRINITY DIAZ MD, ABIM 08/02/17 Reported Medications Prednisone (PREDNISONE) 20 Mg Tab, 20 MG PO DAILY, #30 TAB 08/09/17 Isosorbide Mononitrate (ISOSORBIDE MONONITRATE ER) 30 Mg Tab.er.24h, 60 MG PO DAILY, #30 TAB 07/31/17 Estrogens Conjugated (PREMARIN) 0.625 Mg Tab, 0.625 MG VG 3XWEEK, #30 TAB MWF 07/31/17 Loratadine/Pseudoephedrine (CLARITIN-D 24 HOUR TABLET) 1 Each Tab.er.24h, 10 MG PO DAILY PRN for ALLERGY, #30 TAB 07/31/17 Atorvastatin Calcium (ATORVASTATIN CALCIUM) 20 Mg Tablet, 40 MG PO HS, #30 TAB 07/31/17 Aspirin (ASPIR 81) 81 Mg Tablet.dr, 81 MG PO DAILY 07/31/17 Amlodipine Besylate (AMLODIPINE BESYLATE) 10 Mg Tablet, 10 MG PO DAILY, #30 TAB 07/31/17 Albuterol Sulfate (ALBUTEROL SULFATE) 0.63 Mg/3 Ml Vial.neb, 1 INH INH Q6H 07/31/17 Medications in the ED Methylprednisolone Sodium Succinate 125 mg ONCE ONCE IV Last administered on 11/27/19at 22:36; Admin Dose 125 MG; Start 11/27/19 at 22:30; Stop 11/27/19 at 22:31; Status DC Albuterol Sulfate 6 ml NOW STAT NEB ; Start 11/27/19 at 22:23; Stop 11/27/19 at 22:28; Status DC Ipratropium [place] 2.5 ml ONCE ONCE NEB ; Start 11/27/19 at 22:30; Stop 11/27/19 at 22:31; Status DC FRANCESCO LUNSFORD MD Nov 27, 2019 22:48
[2019-11-27 23:11] LABS: BASOPHILS % 0.7 % (0.0-1.0); EOSINOPHILS # (AUTO) 0.2 (0.0-0.4); EOSINOPHILS % 3.6 % (0.0-6.0); HEMATOCRIT 41.8 % (34.2-44.1); LYMPHOCYTES # (AUTO) 1.2 (1.0-3.2); MEAN CORPUSCULAR HEMOGLOBIN 31.7 pg (28-32); MEAN CORPUSCULAR HGB CONC 33.5 g/dL (31-35); MEAN CORPUSCULAR VOLUME 94.6 fL (81-99); MONOCYTES # (AUTO) 0.2 (0.2-0.8); MONOCYTES % 5.7 % (4.4-11.3); NEUTROPHILS # (AUTO) 2.6 (2.1-6.9); NEUTROPHILS % 60.8 % (38.7-80.0); PLATELET COUNT 195 x10e3/uL (140-360); RED BLOOD COUNT 4.42 x10e6/uL (3.6-5.1); RED CELL DISTRIBUTION WIDTH 14.1 % (11.7-14.4)
[2019-11-27 23:36] LABS: ALANINE AMINOTRANSFERASE 13 IU/L (0-55); ALBUMIN 3.2 g/dL (3.5-5.0); ALBUMIN/GLOBULIN RATIO 0.9 (0.8-2.0); ALKALINE PHOSPHATASE 58 IU/L (40-150); ANION GAP 12.1 mmol/L (8-16); BLOOD UREA NITROGEN 7 mg/dL (7-26); BUN/CREATININE RATIO 10 (6-25); CALCIUM 8.9 mg/dL (8.4-10.2); CARBON DIOXIDE 26 mmol/L (22-29); CHLORIDE 94 mmol/L (98-107); CREATININE, SERUM 0.69 mg/dL (0.57-1.11); EST GLOMERULAR FILTRATION RATE > 60 ML/MIN (60-); GLUCOSE 99 mg/dL (74-118); POTASSIUM 4.1 mmol/L (3.5-5.1); SODIUM 128 mmol/L (136-145)
--- NOTE | 2019-11-28 | Diagnostic Imaging Report ---
EXAMINATION: CHEST SINGLE (PORTABLE) INDICATION: Short of breath, wheezing, cough COMPARISON: Chest x-ray 08/02/2018 FINDINGS: TUBES and LINES: None. LUNGS: Hyperinflated lungs with flattened hemidiaphragms. Mild central bronchial wall thickening. Prominent central pulmonary vasculature. Left midlung benign calcified granuloma. PLEURA: No pleural effusion or pneumothorax. HEART AND MEDIASTINUM: Cardiac size is mildly enlarged. There are atherosclerotic calcifications within the aorta. Calcified mediastinal nodes. BONES AND SOFT TISSUES: Mandibular fixation hardware. Surgical clips in the neck. No acute osseous lesion. UPPER ABDOMEN: No free air under the diaphragm. IMPRESSION: Mild cardio megaly and pulmonary vascular congestion. Lung findings can be seen with bronchitis and emphysema/obstructive pulmonary disease. Signed by: Femi Rose DO on 11/27/2019 11:57 PM
[2019-11-28 00:06] LABS: CREATINE KINASE 60 IU/L (29-168)
[2019-11-28] MEDS ORDERED: ALBUTEROL SULF 0.083% NEB SOLN 3 ML NEB NEB STA (01:07)
[2019-11-28] MEDS ORDERED: IPRATROPIUM BROMIDE 0.02% 2.5 ML NEB NEB ONE (01:15)
[2019-11-28] MEDS ORDERED: ASPIRIN 81 MG CHEW TAB PO ONE (01:30)
[2019-11-28] MEDS ORDERED: SODIUM CHLORIDE FLUSH 10 ML SYR INJ PRN (01:30)
[2019-11-28] MEDS ORDERED: AZITHROMYCIN 500MG/SOD CHL 0.9% 250ML BAG IV SCH (01:30)
[2019-11-28] MEDS: ALBUTEROL/IPRATROPIUM 3 ML NEB NEB SCH ×2 (03:00→09:05)
[2019-11-28 04:54] VITALS: BP 131/75
--- NOTE | 2019-11-28 04:54 | NUR ---
PT TRANSPORTED BY STRETCHER FROM ER TO ROOM 110. PT IS AAOX3, RR EVEN AND NON-LABORED, O2 BY NC AT 2L. NO S/SX OF DISTRESS NOTED. PT AMBULATORY WITH STAND BY ASSIST TO HOSPITAL BED. ORIENTED TO HOSPITAL, CALL LIGHT, BED CONTROLS AND LIGHTS. LEFT PT LAYING SEMI FOWLERS IN BED,BED IN LOW LOCKED POSITION, SIDE RAILS UPX2, CALL LIGHT AND PHONE WITHIN REACH.
[2019-11-28] MEDS ORDERED: SODIUM CHLORIDE 0.9% 250ML 250 ML ONE (05:21)
[2019-11-28] MEDS: METHYLPREDNISOLONE SOD SUCC 40 MG/ML VIAL 1ML IV SCH ×2 (05:53→12:00)
[2019-11-28 06:00] VITALS: BP 131/75
[2019-11-28] MEDS ORDERED: NITROGLYCERIN0.4 MG SL (06:36)
[2019-11-28] MEDS ORDERED: METOPROLOL TART50 MG PO (06:36)
[2019-11-28] MEDS ORDERED: SPIRIVA18 MCG INH (06:36)
[2019-11-28] MEDS ORDERED: FLONASE ALLERG9.9 ML INH (06:36)
[2019-11-28] MEDS ORDERED: ACETAMINOPHEN325 M1 PO (06:36)
--- NOTE | 2019-11-28 07:00 | NUR ---
PT RECEIVED ON BEDSIDE ROUNDS EARLIER. NO SIGNS OF RESP ISSUE.
[2019-11-28 07:22] LABS: CREATINE KINASE 52 IU/L (29-168)
[2019-11-28] MEDS ORDERED: ACETAMINOPHEN 325 MG TAB PO PRN (08:00)
[2019-11-28] MEDS ORDERED: NITROGLYCERIN 0.4 MG SUBL SL PRN (08:00)
[2019-11-28] MEDS ORDERED: ALBUTEROL SULFATE HFA 8GM INHALATION AEROSOL INH PRN (08:00)
[2019-11-28 08:03] LABS: ANION GAP 15.8 mmol/L (8-16); BLOOD UREA NITROGEN 12 mg/dL (7-26); BUN/CREATININE RATIO 17 (6-25); CALCIUM 8.4 mg/dL (8.4-10.2); CARBON DIOXIDE 18 mmol/L (22-29); CHLORIDE 98 mmol/L (98-107); EST GLOMERULAR FILTRATION RATE > 60 ML/MIN (60-); GLUCOSE 174 mg/dL (74-118); POTASSIUM 3.8 mmol/L (3.5-5.1); SODIUM 128 mmol/L (136-145)
[2019-11-28 08:29] VITALS: BP 109/66
[2019-11-28 08:38] VITALS: BP 109/66
[2019-11-28] MEDS ORDERED: AMLODIPINE BESYLATE 10 MG TAB PO SCH (09:00)
[2019-11-28] MEDS ORDERED: TIOTROPIUM 18 MCG INH POWDER INH SCH (09:00)
[2019-11-28] MEDS ORDERED: ISOSORBIDE MONONITRATE 30 MG TAB CR PO SCH (09:00)
[2019-11-28] MEDS ORDERED: ASPIRIN 81 MG CHEW TAB PO SCH (09:00)
--- NOTE | 2019-11-28 10:00 | NUR ---
PT RESTING WITHOUT ANY PROBLEMS AT THIS TIME
[2019-11-28 12:27] LABS: CREATINE KINASE 57 IU/L (29-168)
--- NOTE | 2019-11-28 14:10 | NUR ---
Franck LACY MRI SPECIALIST TO SEE PT. LABS TO BE DRAW AND O2 CHECKED ON RA AND PT CAN POSSIBLY GO HOME LATER.
--- NOTE | 2019-11-28 14:30 | NUR ---
AMBULATED PT TO NURSES STATION AND BACK; O2 SAT 94 WITHOUT O2
--- NOTE | 2019-11-28 14:42 | NUR ---
AFTER PT RESTED ABOUT 15 MINUTES I RECHECK O2 SAT 96
[2019-11-28] MEDS ORDERED: SODIUM CHLORIDE 1 GM TAB PO SCH (15:00)
[2019-11-28] MEDS ORDERED: PREDNISONE20 MG PO (15:08)
[2019-11-28 15:58] VITALS: BP 112/55
[2019-11-28 17:02] LABS: BLOOD UREA NITROGEN 12 mg/dL (7-26); BUN/CREATININE RATIO 17 (6-25); CALCIUM 8.4 mg/dL (8.4-10.2); CARBON DIOXIDE 21 mmol/L (22-29); CHLORIDE 99 mmol/L (98-107); CREATININE, SERUM 0.72 mg/dL (0.57-1.11); EST GLOMERULAR FILTRATION RATE > 60 ML/MIN (60-); GLUCOSE 224 mg/dL (74-118); SODIUM 130 mmol/L (136-145)
--- NOTE | 2019-11-28 17:30 | NUR ---
IV REMOVED EARLIER. DISCHARGE INSTRUCTIONS AND PRESCRIPTIONS GIVEN PT WAITING FOR RIDE/ .
--- NOTE | 2019-11-28 18:00 | NUR ---
PT DISCHARGED AT THIS TIME PT ACCOMPANIED OUT BY STAFF VIA
--- NOTE | 2019-11-28 18:57 | History and Physical ---
PRIMARY CARE PHYSICIAN: Dr. Mayo at [facility]. CHIEF COMPLAINT: Shortness of breath and cough for five days. HISTORY OF PRESENT ILLNESS: This is a 69-year-old female with past medical history of high blood pressure, high cholesterol, CAD, COPD, and chronic bronchitis with seasonal allergies, presented to the ER with complaints of increased shortness of breath and cough. She reports her symptoms started about five days ago, she tried to see her PCP, but was unable to get an appointment. She continued to worsen and so presented to the ER for further evaluation. She denies any chest pain, hemoptysis, nausea, vomiting, dysuria, diaphoresis, palpitations. In the ER, she was started on IV fluids, started on Solu-Medrol 125 mg IV and DuoNeb, which improved her breathing. Chest x-ray showed mild cardiomegaly and pulmonary vascular congestion. Lung navarrete could not be seen with bronchitis, emphysema/obstructive pulmonary disease. She is admitted for further evaluation. PAST MEDICAL HISTORY: 1. Hypertension. 2. High cholesterol. 3. CAD with history of stent. 4. COPD, chronic bronchitis and seasonal allergy. SURGICAL HISTORY: 1. She reports multiple cancerous nodule removal under eye, throat. 2. Hysterectomy. 3. BTL. FAMILY MEDICAL HISTORY: She reports mother had COPD and heart disease. The father had leukemia. SOCIAL HISTORY: She reports smoking 17-19 cigarettes a day. She drinks beer occasionally and denies any illicit drug use. ALLERGIES: SHE IS ALLERGIC TO PENICILLIN, ALENDRONATE SODIUM, NIACIN, AND VARENICLINE. REVIEW OF SYSTEMS: Twelve-system reviewed and negative except as reported in HPI. PHYSICAL EXAMINATION: VITAL SIGNS: Temperature 97.4, pulse is 79, respirations 19, blood pressure 109/66, pulse ox is 98% on 2 L of nasal cannula. GENERAL: No acute distress. HEENT: Normocephalic, atraumatic. NECK: Supple. LUNGS: Clear to auscultation. No wheezing. CARDIOVASCULAR: Regular rate and rhythm. S1, S2 heard. GI: Soft and nontender. NEUROLOGIC: Alert, awake, and oriented x3. MUSCULOSKELETAL: Moves all extremities. SKIN: Dry. PSYCH: Calm. LABORATORY DATA: WBC 4.20, hemoglobin 14.0, hematocrit 41.8, platelet is 195. Sodium 128, potassium 3.8, CO2 18, BUN 12, creatinine 0.70, estimated GFR is greater than 60, glucose 174. Troponin x3 0.001, AST 21, ALT 13. IMAGING DATA: Chest x-ray, mild cardiomegaly and pulmonary vascular congestion. Findings consistent with bronchitis and emphysema. IMPRESSION: 1. Acute chronic obstructive pulmonary disease exacerbation. She was given Solu-Medrol IV, neb treatments, chest x-ray noted. Currently, she reports is feeling much better, no acute respiratory distress noted. We will check O2 sats on room air. 2. Hypertension. We will resume Norvasc. 3. High cholesterol. She is on Lipitor. 4. Hyponatremia. Sodium is 128, but seems chronic. She has no symptoms of hyponatremia. 5. History of coronary artery disease. Resume on aspirin and statin. 6. Tobacco abuse. Discussed cessation. 7. Deep vein thrombosis prophylaxis. SCDs. PLAN: To continue current treatment. She is with no acute respiratory distress. Currently, wants to go home. We will recheck labs, check oxygen on room air. If O2 sats will be stable with exertion we will discharge home later today. Dictated by PATSY Anna Natalia Arriaza MD MY/MODL /[id number]
[2019-11-28] MEDS ORDERED: ATORVASTATIN 40 MG TAB PO SCH (21:00)
[2019-11-28] MEDS ORDERED: ATORVASTATIN 20 MG TAB PO SCH (21:00)
--- NOTE | 2019-11-28 22:13 | Discharge Summary ---
PRIMARY CARE PHYSICIAN: Dr. Mayo at [facility]. FINAL DISCHARGE DIAGNOSES: 1. Chronic obstructive pulmonary disease exacerbation. 2. Hypertension. 3. High cholesterol. 4. Hyponatremia. 5. History of coronary artery disease, status post stent. 6. Tobacco abuse. CONSULTANTS: None. PROCEDURES: None. HISTORY: Per HPI. HOSPITAL COURSE: This is a 69-year-old female, who presented to the ER with increased shortness of breath and cough for five days. In the ER, she was given Solu-Medrol and neb treatments, which seemed to help with her breathing. She currently has no shortness of breath, on room air, saturating over 92%. She was also noted to have hyponatremia, likely chronic. She has no symptoms of altered mental status. She was given 2 g sodium chloride tab. Her sodium is 130. She is requesting to go home as she feels much better. We will discharge home on Z-Geremias and prednisone. Chest x-ray was negative for acute process/pneumonia. Remained afebrile. No leukocytosis. PHYSICAL EXAMINATION: VITAL SIGNS: Temperature 97.6, pulse is 83, respirations 18, blood pressure 112/55, pulse ox is 97% on room air. GENERAL : No acute distress. HEENT: Normocephalic, atraumatic. LUNGS: Decreased breath sounds. No wheezing. CARDIOVASCULAR: Regular rate and rhythm. GI: Soft and nontender. NEUROLOGIC: Alert, awake, and oriented x3. MUSCULOSKELETAL: Moves all extremities. No edema. SKIN: Dry. CONDITION AT DISCHARGE: Improved and stable. DISCHARGE MEDICATIONS: Please see medication reconciliation list. FOLLOWUP: Follow up with PCP in 1 to 2 weeks. She is also advised to stop smoking. TIME SPENT: Total discharge time is 32 minutes. Dictated by PATSY Anna Natalia Arriaza MD MY/MODL /[id number] cc: Dr. Mayo
[2019-11-29] MEDS ORDERED: [UNRECOGNIZED DRUG - REMARK] INH SCH (09:00)
[2019-11-29] MEDS ORDERED: FLUTICASONE PROPIONATE NASAL SPRAY NS SCH (09:00)
== END 2019-11-28 18:00 | disposition home or self-care (01) ==
LOC: ER 22:30 → ERHOLD 11-28 01:24 → MED/SURG 11-28 04:54
PROVIDERS: ADMIT Internal Medicine; ATTEND Internal Medicine
DX: J44.1 Chronic obstructive pulmonary disease with (acute) exacerbation (principal); I10 Essential (primary) hypertension; Z72.0 Tobacco use; I25.10 Atherosclerotic heart disease of native coronary artery without angina pectoris; Z95.5 Presence of coronary angioplasty implant and graft; E78.00 Pure hypercholesterolemia, unspecified
CPT/HCPCS: 36415 ×2; 71045; 80048; 80053; 82550 ×2; 82553 ×2; 84484 ×2; 85025; 93005; 94640; 94644; 99284; G0378; J0456; J2920; J2930; J7050

== ENCOUNTER 2019-12-29 19:04 | Emergency (ER) | payer MEDICARE ==
[~2019-12-29] VITALS: Ht 152.4 cm; Wt 72.6 kg
[~2019-12-29 19:04] MED LIST changes: +ACETAMINOPHEN325 M1 PO; +FLONASE ALLERG9.9 ML INH; +NITROGLYCERIN0.4 MG SL; +SPIRIVA18 MCG INH
[2019-12-29] MEDS ORDERED: ALBUTEROL SULF 0.083% NEB SOLN 3 ML NEB NEB NR (19:30)
[2019-12-29] MEDS ORDERED: METHYLPREDNISOLONE SOD SUCC 125 MG/2ML VIAL IV NR (19:30)
[2019-12-29] MEDS ORDERED: IPRATROPIUM BROMIDE 0.02% 2.5 ML NEB NEB ONE (19:30)
[2019-12-29 19:56] LABS: BASOPHILS % 0.9 % (0.0-1.0); EOSINOPHILS % 0.6 % (0.0-6.0); HEMATOCRIT 43.1 % (34.2-44.1); HEMOGLOBIN 14.5 g/dL (12.0-16.0); LYMPHOCYTES # (AUTO) 0.5 (1.0-3.2); LYMPHOCYTES % 13.8 % (18.0-39.1); MEAN CORPUSCULAR HEMOGLOBIN 31.3 pg (28-32); MEAN CORPUSCULAR HGB CONC 33.6 g/dL (31-35); MEAN CORPUSCULAR VOLUME 93.1 fL (81-99); MONOCYTES # (AUTO) 0.1 (0.2-0.8); MONOCYTES % 1.5 % (4.4-11.3); NEUTROPHILS # (AUTO) 2.8 (2.1-6.9); NEUTROPHILS % 83.2 % (38.7-80.0); PLATELET COUNT 198 x10e3/uL (140-360); RED BLOOD COUNT 4.63 x10e6/uL (3.6-5.1); RED CELL DISTRIBUTION WIDTH 13.4 % (11.7-14.4)
--- OUTSIDE RECORDS SUMMARY | 2019-12-29 19:58 | XMS REPORT | Clinical Summary ---
Author Author [employer] [facility] [employer] [facility] Address Unknown Phone Unavailable Care Team Providers Care Facility Manager Histology Name Role Phone Trent Mayo PCP Unavailable Allergies Comments Active Allergy Reactions Severity Noted Date Paranoria,hallucinations,explosive anger Varenicline Other (See High 02/28/2017 Comments) Patient states that she feel she"s having heart attack Alendronate Shortness Of High 03/02/2017 Breath Had UTI after taking, d/c meds Niacin Preparations Other (See 02/28/2017 Comments) Penicillins Shortness Of High 02/28/2017 Breath Medications End Date Status Medication Sig Dispensed Refills Start Date Active aspirin 81 MG EC tablet Take 81 mg by 0 mouth daily. Active amLODIPine (NORVASC) 10 Take 10 mg by 0 MG tablet mouth daily. Active cephalexin (KEFLEX) 250 Take 250 mg 0 MG capsuleIndications: by mouth Recurrent UTI daily. Active atorvastatin (LIPITOR) 40 Take 40 mg by 0 MG tabletIndications: mouth daily. excessive fat in the blood Active loratadine (CLARITIN) 10 Take 10 mg by 0 mg tabletIndications: mouth daily inflammation of the nose As needed due to an allergy only . Active isosorbide mononitrate Take 60 mg by 0 (IMDUR) 60 MG 24 hr mouth daily. tabletIndications: Chronic Stable Angina Pectoris Active metoprolol (LOPRESSOR) 50 Take 50 mg by 0 MG tabletIndications: mouth every high blood pressure 12 (twelve) hours. Active nitroglycerin (NITROSTAT) Place 0.4 mg 0 0.4 MG SL under the tabletIndications: tongue every angina, a type of chest 5 (five) pain minutes as needed for Chest pain Put 1 pill under tongue every 5min as needed for chest pain.No more than 3 doses in 15min.Call 911 if pain is unrelieved 5min after 1st dose . Active conjugated estrogens Place 0.5 g 0 (PREMARIN) 0.625 mg/gram vaginally 3 vaginal creamIndications: (three) times postmenopausal urethral a week. atrophy Active albuterol (PROVENTIL) 2.5 Take 2.5 mg 0 mg /3 mL (0.083 %) by nebulizer nebulization solutionIndications: every 6 (six) asthma attack hours as needed for Wheezing. Active albuterol HFA (VENTOLIN Inhale 2 0 HFA) 90 mcg/actuation puffs by inhaler mouth via inhaler every 6 (six) hours as needed for Wheezing. Active Problems Problem Noted Date Lung nodule 03/02/2017 Pneumothorax after biopsy 03/02/2017 Hypotension due to drugs 03/02/2017 Chronic bronchitis 03/02/2017 Social History Date Tobacco Use Types Packs/Day Years Used Current Every Day Smoker 1 Smokeless Tobacco: Current User Tobacco Cessation: Counseling Given: Yes Comments: using Nicotine patch, patient states she"s trying Alcohol Use Drinks/Week oz/Week Comments Yes 3 Cans of 1.8 beer Sex Assigned at Date Recorded Not on file Industry Job Start Date Occupation Not on file Not on file Not on file Travel End Travel History Travel Start No recent travel history available. Last Filed Vital Signs Not on file Plan of Treatment Not on file Results Not on fileafter 12/28/2018 Insurance Payer Benefit Subscriber ID Type Phone Address Plan / Group [facility] [place]V [id number] Advance Directives For more information, please contact: [facility] [address] [place] [address] Date Inactivated Comments Code Status Date Activated 03/04/2017 12:14 AM Full Code 03/02/2017 2:44 PM This code status was determined by: Patient
--- OUTSIDE RECORDS SUMMARY | 2019-12-29 19:59 | XMS REPORT | Continuity of Care Document ---
Author Author [facility] t Organization [facility] Address [address] [place] [id number] Phone Unavailable Care Team Providers Care Wire Wheeler Name Role Phone NONSTAFF PCP Unavailable Noy LUNSFORD Attphys Unavailable Lobo HAMLIN Attphys Unavailable Darling CAMPBELL YICHING Attphys Unavailable TARAS EVANS Attphys Unavailable Darling CAMPBELL YICHING Admphys Unavailable KEON RDZ Admphys Unavailable Payers Payer Name Policy Type Policy Number Effective Date Expiration Date jami Kelsey Care Medicare Advantage [id number] 2014 00:0 0:00 [facility] Problems Condition Name Condition Details Condition Category Status Onset Date Resolution Date Last Treatment Date Treating Clinician Comments Source Lung nodule Lung nodule Disease Active 2017-03-02 00:00:00 [facility] Pneumothorax after biopsy Pneumothorax after biopsy Disease Ac tive 2017-03-02 00:00:00 [facility] Hypotension due to drugs Hypotension due to drugs Disease Acti ve 2017-03-02 00:00:00 [facility] Chronic bronchitis Chronic bronchitis Disease Active 2017-03-02 00:00:0 0 [facility] Acute exacerbation of chronic obstructive pulmonary disease Problem Active [facility] Allergies, Adverse Reactions, Alerts Allergy Name Allergy Type Status Severity Reaction(s) Onset Date Inacti ve Date Treating Clinician Comments Source Niacin Allergy to substance Active 2017-08-20 00:00:00 [facility] Alendronate sodium Allergy to substance Active 2017-08-20 0 0:00:00 [facility] Varenicline Allergy to substance Active 2017-08-20 00:00:00 [facility] Penicillin Allergy to substance Active 2017-08-20 00:00:00 [facility] Alendronate Drug Allergy Active Shortness Of Breath 2017-03-02 00:00:00 Patient states that she feel she"s having heart attack [facility] Varenicline Propensity to adverse reactions Active Oth er (See Comments) 2017-02-28 00:00:00 Paranoria,hallucinations,exp losive anger [facility] Niacin Preparations Propensity to adverse reactions Active Other (See Comments) 2017-02-28 00:00:00 Had UTI after taking, d/c meds [facility] Penicillins Drug Allergy Active Shortness Of Breath 2017-02-28 00: 00:00 [facility] Social History Social Habit Start Date Stop Date Quantity Comments Source Sex Assigned At [facility] Cigarettes smoked current (pack per day) - Reported 00:00:00 2017-03-02 00:00:00 [facility] Tobacco Comment 2017-03-02 00:00:00 2017-03-02 00:00:00 using Ni cotine patch, patient states she"s trying [facility] ter Smoking Status Start Date Stop Date Source Current every day smoker 2017-03-02 00:00:00 [facility] Medications Ordered Medication Name Filled Medication Name Start Date Stop Da te Current Medication? Ordering Clinician Indication Dosage Frequency Signature (SIG) Comments Components Source Prednisone Prednisone 2019-11-28 15:08:00 Yes 40 Lin kwon [facility] Albuterol Sulfate (Proair Hfa Inhaler*) 8.5 Gm INH Alb uterol Sulfate (Proair Hfa Inhaler*) 8.5 Gm INH 2017-08-02 13:17:00 Yes 2 Every 4 Hours as needed for Shortness Of Breath [facility] Montelukast Sodium (Singulair) 10 Mg TABLET Montelukas t Sodium (Singulair) 10 Mg TABLET 2017-08-02 13:17:00 2019-11-28 00:00:00 No 10 Lin cher [facility] Prednisone Prednisone 2017-08-02 13:17:2019-11-28 00:00:00 No 0 [facility] Salmeterol Xinafoate/Fluticasone (Advair 500/50*) 1 AER Salmeterol Xinafoate/Fluticasone (Advair 500/50*) 1 Ea AERP 2017-08-02 13:17:00 11-27 00:00:00 No 1 Every 12 Hours [facility] isosorbide mononitrate (IMDUR) 60 MG 24 hr tablet 2017-03-02 12:07:10 Yes Chronic Stable Angina Pectoris 60mg QD Take 60 mg by mouth daily. [facility] metoprolol (LOPRESSOR) 50 MG tablet 2017-03-02 12:07:10 Yes high blood pressure 50mg Take 50 mg by mouth every 12 (twelve) hours. [facility] nitroglycerin (NITROSTAT) 0.4 MG SL tablet 2017-03-02 12:07: 10 Yes angina, a type of chest pain .4mg Place 0.4 mg under the tongue every 5 (five) minutes as needed for Chest pain Put 1 pill under tongue every 5min as needed for chest pain.No more than 3 doses in 15min.Call 911 if pain is unrelieved 5min after 1st dose . [facility] conjugated estrogens (PREMARIN) 0.625 mg/gram vaginal cream 2017-03-02 12:07:10 Yes postmenopausal urethral atrophy .5g Q.[id number] Place 0.5 g vaginally 3 (three) times a week. [facility] albuterol (PROVENTIL) 2.5 mg /3 mL (0.083 %) nebulizer solut ion 2017-03-02 12:07:10 Yes asthma attack 2.5mg Take 2 .5 mg by nebulization every 6 (six) hours as needed for Wheezing. [facility] albuterol HFA (VENTOLIN HFA) 90 mcg/actuation inhaler 2017-03-02 12:07:10 Yes 2{puff} Inhale 2 puffs by mouth via inhaler every 6 (six) hours as needed for Wheezing. [facility] atorvastatin (LIPITOR) 40 MG tablet 2017-03-02 12:07:09 Yes excessive fat in the blood 40mg QD Take 40 mg by mouth daily. [facility] loratadine (CLARITIN) 10 mg tablet 2017-03-02 12:07:09 Yes inflammation of the nose due to an allergy 10mg QD Take 10 mg by mouth daily A s needed only . [facility] cephalexin (KEFLEX) 250 MG capsule 2017-03-02 11:55:59 Yes 250mg QD Take 250 mg by mouth daily. [facility] aspirin 81 MG EC tablet 2017-02-28 17:27:59 Yes 81mg QD Take 81 mg by mouth daily. [facility] amLODIPine (NORVASC) 10 MG tablet 2017-02-28 17:27:59 Yes 10mg QD Take 10 mg by mouth daily. [facility] Acetaminophen Acetaminophen Yes 650 Every 6 Hours as needed for Mild Pain (1-3) Or Fever>100.8 [facility] Albuterol Sulfate Albuterol Sulfate Yes 1 Ever y 6 Hours [facility] Amlodipine Besylate Amlodipine Besylate Yes 10 Daily [facility] Aspirin (Aspir 81) 81 Mg TABLET. Aspirin (Aspir 81) 81 Mg TABLET. Yes 81 Daily [facility] Atorvastatin Calcium Atorvastatin Calcium Yes 40 Bedtime [facility] Fluticasone Propionate (Flonase Allergy Relief) 9.9 Ml SPRAY.SUSP Fluticasone Propionate (Flonase Allergy Relief) 9.9 Ml SPRAY.SUSP Yes 1 Daily [facility] Isosorbide Mononitrate (Isosorbide Mononitrate Er) 30 Mg TAB.ER.24H Isosorbide Mononitrate (Isosorbide Mononitrate Er) 30 Mg TAB.ER.24H Yes 60 Daily [facility] Metoprolol Tartrate Metoprolol Tartrate Yes 50 Twice A Day [facility] Nitroglycerin Nitroglycerin Yes .4 Every 5 Minutes as needed for Chest Pain [facility] Tiotropium [place] (Spiriva) 18 Mcg CAP.W.DEV Tiotropi um [place] (Spiriva) 18 Mcg CAP.W.DEV Yes 18 [facility] Estrogens Conjugated (Premarin) 0.625 Mg TAB Estrogens Conjugated (Premarin) 0.625 Mg TAB 2019-11-28 00:00:00 No .625 3XWEEK [facility] Loratadine/Pseudoephedrine (Claritin-D 24 Hour Tablet) 1 Each TAB.ER.24H Loratadine/Pseudoephedrine (Claritin-D 24 Hour Tablet) 1 Each TAB.ER.24H 2019-11-28 00:00:00 No 10 Daily as needed for Allergy [facility] Prednisone Prednisone 2019-11-28 00:00:00 No 20 Lin ly [facility] Metoprolol Tartrate Metoprolol Tartrate 2017-08-09 00:00:00 No 50 Every 12 Hours [facility] Vital Signs Vital Name Observation Time Observation Value Comments Source Body Temperature 2019-11-28 15:58:00 97.6 [degF] [facility] BMI (Body Mass Index) 2019-11-28 06:00:00 31.2 kg/m2 [facility] Weight 2019-11-27 22:19:00 160 [lb_av] [facility] Procedures This patient has no known procedures. Plan of Care Planned Activity Planned Date Details Comments Source Instructions COPD [facility] Encounters Start Date/Time End Date/Time Encounter Type Admission Type Attendi [facility] Care Department Encounter ID Source 2019-11-28 01:24:00 2019-11-28 18:00:00 Discharged Inpatient (obs) 1 FRANCESCO LUNSFORD [facility] [id number] [facility] 2017-08-20 18:05:00 2017-08-20 18:05:00 Registered Emergency Room [facility] [id number] [facility] 2017-07-31 18:56:00 2017-08-09 17:43:00 Discharged Inpatient ER CARMELO CAMPBE[facility] [id number] [facility] Results Test Description Test Time Test Comments Results Result Comments Source Serum or plasma sodium measurement (moles/volume) 2019-11-28 16:30:00 Test Item Sodium Level (test code = 2951-2) 130 136-145 [facility] potassium measurement (moles/volume)2019-11-28 16:30:00* Test Item Value Reference Range Interpretation Comments Potassium Level (test code = 2823-3) 4.0 3.5-5.1 [facility] or plasma chloride measurement (moles/volume)2019-11-28 16:30:00* Test Item Value Reference Range Interpretation Comments Chloride Level (test code = 2075-0) 99 98-107 [facility] or plasma carbon dioxide, total measurement (moles/volume)2019-11-28 16:30:00* Test Item Value Reference Range Interpretation Comments Carbon Dioxide Level (test code = 2028-9) 21 22-29 [facility] or plasma anion [id number] 16:30:00* Test Item Value Reference Range Interpretation Comments Anion Gap (test code = 09765-1) 14.0 8-16 [facility] or plasma urea nitrogen measurement (mass/volume)2019-11-28 16:30:00* Test Item Value Reference Range Interpretation Comments Blood Urea Nitrogen (test code = 3094-0) 12 7-26 [facility] or plasma creatinine measurement (mass/volume)2019-11-28 16:30:00* Test Item Value Reference Range Interpretation Comments Creatinine (test code = 2160-0) 0.72 0.57-1.11 [facility] or plasma urea nitrogen/creatinine mass [id number] 16:30:00* Test Item Value Reference Range Interpretation Comments BUN/Creatinine Ratio (test code = 3097-3) 17 6-25 [facility] HospitalEstimated glomerular filtration rate (GFR) ruehvfqubrqxf1346-51-57 16:30:00* Test Item Value Reference Range Interpretation Comments Estimat Glomerular Filtration Rate (test code = 196124184) > 60 >60 Ranges were taken from the National Kidney Disease Education Program and the [facility] Kidney Foundation literature.Reference ranges:60 or greater: Kimxte37-19 ( for 3 consecutive months): Chronic kidney disease 15 or less: Kidney failureEl Paso Children's HospitalGlucose zslrhtajbok4435-22-16 16:30:00* Test Item Value Reference Range Interpretation Comments Glucose Level (test code = USK8921) 224 74-118 [facility] or plasma calcium measurement (mass/volume)2019-11-28 16:30:00* Test Item Value Reference Range Interpretation Comments Calcium Level (test code = 08621-3) 8.4 8.4-10.2 [facility] or plasma creatine kinase measurement (enzymatic activity/volume)2019-11-28 12:02:00* Test Item Value Reference Range Interpretation Comments Creatine Kinase (test code = 2157-6) 57 29-168 [facility] or plasma creatine kinase MB measurement (mass/volume)2019-11-28 12:02:00* Test Item Value Reference Range Interpretation Comments Creatine Kinase MB (test code = 09665-2) 4.50 0-5.0 [facility] HospitalTroponin I measurement by highly sensitive enzyme eiyoxwfailo0593-89-22 12:02:00* Test Item Value Reference Range Interpretation Comments Troponin I (test code = 96979-3) < 0.001 0-0.300 [facility] HospitalCHEST SINGLE (PORTABLE)2019-11-27 23:55:00 [facility] [address] [place] [address] Patient Name: JENNIFER BURCH MR #: [id number] : 1950 Age/Sex: 69/F Req #: [id number] Adm Physician: Ordered by: FRANCESCO LUNSFORD MD Report #: [id number] Location: ER Room/Bed: Procedure: [id number] DX/CHES T SINGLE (PORTABLE) Exam Date: 11/27/19 Exam Time: 2 308 REPORT STATUS: Signed EXAMIN ATION: CHEST SINGLE (PORTABLE) INDICATION: Short of breath, wheezing, cough COMPARISON: Chest x-ray 08/02/2018 FINDINGS: TUB ES and LINES: None. LUNGS: Hyperinflated lungs with flattened hemidiaphra gms. Mild central bronchial wall thickening. Prominent central pulmonary vas culature. Left midlung benign calcified granuloma. PLEURA: No pleural ef fusion or pneumothorax. HEART AND MEDIASTINUM: Cardiac size is mildly enla rged. There are atherosclerotic calcifications within the aorta. Calcified med iastinal nodes. BONES AND SOFT TISSUES: Mandibular fixation hardware. Surgi roma clips in the neck. No acute osseous lesion. UPPER ABDOMEN: No f ree air under the diaphragm. IMPRESSION: Mild cardio megaly and p ulmonary vascular congestion. Lung findings can be seen with bronchitis and emphysema/obstructive pulmonary disease. Signed by: Femi Oliveira DO o n 11/27/2019 11:57 PM Dictated By: FEMI OLIVEIRA DO Electronically Sign ed By: FEMI OLIVEIRA DO on 11/27/192356 Transcribed By: GREGORY on 11/27/192356 COPY TO: FRANCESCO LUNSFORD MD Blood leukocytes automated count (number/volume)2019-11-27 22:30:00* Test Item Value Reference Range Interpretation Comments White Blood Count (test code = 6690-2) 4.20 4.8-10.8 [facility] HospitalBlood erythrocytes automated count (number/volume)2019-11-27 22:30:00* Test Item Value Reference Range Interpretation Comments Red Blood Count (test code = 789-8) 4.42 3.6-5.1 [facility] HospitalBlood hemoglobin measurement (moles/volume)2019-11-27 22:30:00* Test Item Value Reference Range Interpretation Comments Hemoglobin (test code = 98226-2) 14.0 12.0-16.0 [facility] HospitalAutomated blood hematocrit (volume fraction)2019-11-27 22:30:00* Test Item Value Reference Range Interpretation Comments Hematocrit (test code = 4544-3) 41.8 34.2-44.1 [facility] HospitalAutomated erythrocyte mean corpuscular jltloi3824-26-20 22:30:00* Test Item Value Reference Range Interpretation Comments Mean Corpuscular Volume (test code = 787-2) 94.6 81-99 [facility] HospitalAutomated erythrocyte mean corpuscular hemoglobin (mass per erythrocyte)2019-11-27 22:30:00* Test Item Value Reference Range Interpretation Comments Mean Corpuscular Hemoglobin (test code = 785-6) 31.7 28-32 [facility] HospitalAutnov[facility] erythrocyte mean corpuscular hemoglobin concentration measurement (mass/volume)2019-11-27 22:30:00* Test Item Value Reference Range Interpretation Comments Mean Corpuscular Hemoglobin Concent (test code = 786-4) 33.5 31-35 [facility] HospitalRDW PscAs-Ozq8387-59-08 22:30:00* Test Item Value Reference Range Interpretation Comments Red Cell Distribution Width (test code = 91942-2) 14.1 11.7 -14.4 [facility] HospitalAutcaromont [facility] centered blood platelet count (count/volume)2019-11-27 22:30:00* Test Item Value Reference Range Interpretation Comments Platelet Count (test code = 777-3) 195 140-360 [facility] HospitalAutcaromont [facility] medical centered blood segmented neutrophil count as percentage of total bqqpbvefna3806-65-76 22:30:00* Test Item Value Reference Range Interpretation Comments Neutrophils (%) (Auto) (test code = 79028-8) 60.8 38.7-80.0 [facility] HospitalAutcaromont [facility] medical centered blood lymphocyte count as percentage ot total xsekwzjbrz3655-88-74 22:30:00* Test Item Value Reference Range Interpretation Comments Lymphocytes (%) (Auto) (test code = 736-9) 29.0 18.0-39.1 [facility] HospitalAutomated blood monocyte count as percentage of total brlgmpgijj0605-64-48 22:30:00* Test Item Value Reference Range Interpretation Comments Monocytes (%) (Auto) (test code = 5905-5) 5.7 4.4-11.3 [facility] HospitalAutomated blood eosinophil count as percentage of total dqgfkvpfju0895-29-78 22:30:00* Test Item Value Reference Range Interpretation Comments Eosinophils (%) (Auto) (test code = 713-8) 3.6 0.0-6.0 [facility] HospitalAutomated blood basophil count as percentage of total ajpuqorsev4976-72-62 22:30:00* Test Item Value Reference Range Interpretation Comments Basophils (%) (Auto) (test code = 706-2) 0.7 0.0-1.0 [facility] HospitalFluoroscopic procedure less than one hour zixxawzu5363-93-99 22:30:00* Test Item Value Reference Range Interpretation Comments IM GRANULOCYTES % (test code = IM GRANULOCYTES %) 0.2 0.0- 1.0 [facility] HospitalAutomated blood neutrophil count 2019-11-27 22:30:00* Test Item Value Reference Range Interpretation Comments Neutrophils # (Auto) (test code = 751-8) 2.6 2.1-6.9 [facility] HospitalBlood lymphocytes count (number/volume) 2019-11-27 22:30:00* Test Item Value Reference Range Interpretation Comments Lymphocytes # (Auto) (test code = 61278-4) 1.2 1.0-3.2 [facility] HospitalBlood monocytes automated count (number/volume)2019-11-27 22:30:00* Test Item Value Reference Range Interpretation Comments Monocytes # (Auto) (test code = 742-7) 0.2 0.2-0.8 [facility] HospitalAutomated blood eosinophil count 2019-11-27 22:30:00* Test Item Value Reference Range Interpretation Comments Eosinophils # (Auto) (test code = 711-2) 0.2 0.0-0.4 [facility] HospitalAutomated blood basophil count (count/volume)2019-11-27 22:30:00* Test Item Value Reference Range Interpretation Comments Basophils # (Auto) (test code = 704-7) 0.0 0.0-0.1 [facility] HospitalFluoroscopic procedure less than one hour kcnxglgv5667-89-04 22:30:00* Test Item Value Reference Range Interpretation Comments Absolute Immature Granulocyte (auto (carla t code = Absolute Immature Granulocyte (auto) 0.01 0-0.1 [facility] Centererum or plasma total bilirubin measurement (mass/volume)2019-11-27 22:30:00* Test Item Value Reference Range Interpretation Comments Total Bilirubin (test code = 1975-2) 0.5 0.2-1.2 [facility] HospitalFluoroscopic procedure less than one hour bnlczkem9631-25-11 22:30:00* Test Item Value Reference Range Interpretation Comments Aspartate Amino Transf (AST/SGOT) (test code = Aspartate Amino Transf (AST/SGOT)) 21 5-34 [facility] Centererum or plasma alanine aminotransferase measurement (enzymatic activity/volume)2019-11-27 22:30:00* Test Item Value Reference Range Interpretation Comments Alanine Aminotransferase (ALT/SGPT) (test code = 1742-6) 13 0-55 [facility] Centererum or plasma protein measurement (mass/volume)2019-11-27 22:30:00* Test Item Value Reference Range Interpretation Comments Total Protein (test code = 2885-2) 6.8 6.5-8.1 [facility] Centererum or plasma albumin measurement (mass/volume)2019-11-27 22:30:00* Test Item Value Reference Range Interpretation Comments Albumin (test code = 1751-7) 3.2 3.5-5.0 [facility] HospitalPlasma globulin measurement (mass/volume) 2019-11-27 22:30:00* Test Item Value Reference Range Interpretation Comments Globulin (test code = 67826-3) 3.6 2.3-3.5 [facility] Centererum or plasma albumin/globulin mass kiity1936-96-09 22:30:00* Test Item Value Reference Range Interpretation Comments Albumin/Globulin Ratio (test code = 1759-0) 0.9 0.8-2.0 [facility] Centererum or plasma alkaline phosphatase measurement (enzymatic activity/volume)2019-11-27 22:30:00* Test Item Value Reference Range Interpretation Comments Alkaline Phosphatase (test code = 6768-6) 58 40-150 [facility] HospitalImmunoglobulin F3272-27-14 05:12:00* Test Item Value Reference Range Interpretation Comments Immunoglobulin E (test code = 24214-9) 3175 0-100 H Performed at: [employer] [id number] Branch Logistics Supervisor: Tyler Holliday MD, Phone: [phone] Paso Children's HospitalActivated Partial Thromboplast Jthi6153-12-12 06:36:00* Test Item Value Reference Range Interpretation Comments Activated Partial Thromboplast Time (test code = 44008-7) 26.9 23.8-35.5 [facility] HospitalActivated Partial Thromboplast Time 2017-08-07 06:36:00* Test Item Value Reference Range Interpretation Comments Activated Partial Thromboplast Time (test code = 02727-6) 26.9 23.8-35.5 [facility] HospitalAlpha-1-Zatdudvtyqd1981-32-36 21:43:00* Test Item Value Reference Range Interpretation Comments Bmaut-5-Imybdeatysd (test code = 1825-9) 174 90-200 Performed at: [place] [address]Lab Director: NITIN Salvador MD, Phone: [phone] Paso Children's HospitalAlpha-1-Dbbflqmdvfi1994-39-64 21:43:00* Test Item Value Reference Range Interpretation Comments Dqydu-3-Swcayezrkwu (test code = 1825-9) 174 90-200 Performed at: [employer] [address] [address]Lab Director: NITIN Salvador MD, Phone: [phone] Scott & White McLane Children's Medical Centerodium Wfdmh2402-20-80 06:46:00* Test Item Value Reference Range Interpretation Comments Sodium Level (test code = 2951-2) 139 136-145 [facility] HospitalPotassium Kydfx7120-13-07 06:46:00* Test Item Value Reference Range Interpretation Comments Potassium Level (test code = 2823-3) 3.4 3.5-5.1 L [facility] HospitalChloride Qrcoq5633-43-48 06:46:00* Test Item Value Reference Range Interpretation Comments Chloride Level (test code = 2075-0) 97 98-107 L [facility] HospitalCarbon Dioxide Ihpkq1294-00-91 06:46:00* Test Item Value Reference Range Interpretation Comments Carbon Dioxide Level (test code = 2028-9) 34 22-29 H [facility] HospitalAnion Uta4176-69-01 06:46:00* Test Item Value Reference Range Interpretation Comments Anion Gap (test code = 68851-2) 11.4 8-16 [facility] HospitalBlood Urea Hofkuzue6574-43-98 06:46:00* Test Item Value Reference Range Interpretation Comments Blood Urea Nitrogen (test code = 3094-0) 12 7-26 [facility] HospitalCreatinine2018-03-18 06:46:00* Test Item Value Reference Range Interpretation Comments Creatinine (test code = 2160-0) 0.63 0.57-1.11 [facility] HospitalBUN/Creatinine Wpjgb2031-39-07 06:46:00* Test Item Value Reference Range Interpretation Comments BUN/Creatinine Ratio (test code = 3097-3) 19 6-25 [facility] HospitalEstimat Glomerular Filtration Rate 2017-08-06 06:46:00* Test Item Value Reference Range Interpretation Comments Estimat Glomerular Filtration Rate (test code = 84928-1) 60- >60 Ranges were taken from the National Kidney Disease Education Program and the [facility] Kid[facility] Foundation literature.Reference ranges:60 or greater: Lejfef80-94 ( for 3 consecutive months): Chronic kidney disease 15 or less: Kidney failureEl Paso Children's HospitalGlucose Pgrax1896-19-98 06:46:00* Test Item Value Reference Range Interpretation Comments Glucose Level (test code = INX2818) 224 74-118 H [facility] HospitalCalcium Yigyx0895-45-74 06:46:00* Test Item Value Reference Range Interpretation Comments Calcium Level (test code = 62172-9) 8.8 8.4-10.2 [facility] HospitalMagnesium Dvyji5437-34-85 06:46:00* Test Item Value Reference Range Interpretation Comments Magnesium Level (test code = 42283-4) 1.9 1.3-2.1 [facility] Centerodium Vovag6318-18-91 06:46:00* Test Item Value Reference Range Interpretation Comments Sodium Level (test code = 2951-2) 139 136-145 [facility] HospitalPotassium Ottlc1973-19-69 06:46:00* Test Item Value Reference Range Interpretation Comments Potassium Level (test code = 2823-3) 3.4 3.5-5.1 L [facility] HospitalChloride Nlmcu1737-47-78 06:46:00* Test Item Value Reference Range Interpretation Comments Chloride Level (test code = 2075-0) 97 98-107 L [facility] HospitalCarbon Dioxide Kgwpd1699-40-79 06:46:00* Test Item Value Reference Range Interpretation Comments Carbon Dioxide Level (test code = 2028-9) 34 22-29 H [facility] HospitalAnion Ibd0723-31-49 06:46:00* Test Item Value Reference Range Interpretation Comments Anion Gap (test code = 04333-7) 11.4 8-16 [facility] HospitalBlood Urea Ixmjtdpo3847-97-12 06:46:00* Test Item Value Reference Range Interpretation Comments Blood Urea Nitrogen (test code = 3094-0) 12 7-26 [facility] HospitalCreatinine2018-03-18 06:46:00* Test Item Value Reference Range Interpretation Comments Creatinine (test code = 2160-0) 0.63 0.57-1.11 [facility] HospitalBUN/Creatinine Gnppk5492-01-91 06:46:00* Test Item Value Reference Range Interpretation Comments BUN/Creatinine Ratio (test code = 3097-3) 19 6-25 [facility] HospitalEstimat Glomerular Filtration Rate 2017-08-06 06:46:00* Test Item Value Reference Range Interpretation Comments Estimat Glomerular Filtration Rate (test code = 95399-3) 60- >60 Ranges were taken from the National Kidney Disease Education Program and the [facility] literature.Reference ranges:60 or greater: Kunerg21-39 ( for 3 consecutive months): Chronic kidney disease 15 or less: Kidney failureEl [facility] Children's HospitalGlucose Iyknq5257-35-76 06:46:00* Test Item Value Reference Range Interpretation Comments Glucose Level (test code = XAN1104) 224 74-118 H [facility] HospitalCalcium Kkphw1185-17-69 06:46:00* Test Item Value Reference Range Interpretation Comments Calcium Level (test code = 56510-7) 8.8 8.4-10.2 [facility] HospitalMagnesium Dairn9405-81-97 06:46:00* Test Item Value Reference Range Interpretation Comments Magnesium Level (test code = 67881-1) 1.9 1.3-2.1 [facility] HospitalWhite Blood Pxpef6746-94-10 06:35:00* Test Item Value Reference Range Interpretation Comments White Blood Count (test code = 6690-2) 6.13 4.8-10.8 [facility] HospitalRed Blood Esxtq2269-09-05 06:35:00* Test Item Value Reference Range Interpretation Comments Red Blood Count (test code = 789-8) 4.08 3.6-5.1 [facility] HospitalHemoglobin2018-03-18 06:35:00* Test Item Value Reference Range Interpretation Comments Hemoglobin (test code = 47745-4) 13.3 12.0-16.0 [facility] HospitalHematocrit2018-03-18 06:35:00* Test Item Value Reference Range Interpretation Comments Hematocrit (test code = 4544-3) 39.3 34.2-44.1 [facility] HospitalMean Corpuscular Vmqmic6946-96-81 06:35:00* Test Item Value Reference Range Interpretation Comments Mean Corpuscular Volume (test code = 787-2) 96.3 81-99 [facility] HospitalMean Corpuscular Qyffeoaqok4241-14-31 06:35:00* Test Item Value Reference Range Interpretation Comments Mean Corpuscular Hemoglobin (test code = 785-6) 32.6 28-32 H [facility] HospitalMean Corpuscular Hemoglobin Concent 2017-08-06 06:35:00* Test Item Value Reference Range Interpretation Comments Mean Corpuscular Hemoglobin Concent (test code = 786-4) 33.8 31-35 [facility] HospitalRed Cell Distribution Wcrrg6866-76-61 06:35:00* Test Item Value Reference Range Interpretation Comments Red Cell Distribution Width (test code = 37327-8) 12.3 11.7 -14.4 [facility] HospitalPlatelet Zwxfs4469-89-24 06:35:00* Test Item Value Reference Range Interpretation Comments Platelet Count (test code = 777-3) 202 140-360 [facility] HospitalNeutrophils (%) (Auto)2017-08-06 06:35:00 * Test Item Value Reference Range Interpretation Comments Neutrophils (%) (Auto) (test code = 96203-2) 85.7 38.7-80.0 H [facility] HospitalLymphocytes (%) (Auto)2017-08-06 06:35:00 * Test Item Value Reference Range Interpretation Comments Lymphocytes (%) (Auto) (test code = 736-9) 8.0 18.0-39.1 L [facility] HospitalMonocytes (%) (Auto)2017-08-06 06:35:00* Test Item Value Reference Range Interpretation Comments Monocytes (%) (Auto) (test code = 5905-5) 4.2 4.4-11.3 L [facility] HospitalEosinophils (%) (Auto)2017-08-06 06:35:00 * Test Item Value Reference Range Interpretation Comments Eosinophils (%) (Auto) (test code = 713-8) 0.0 0.0-6.0 [facility] HospitalBasophils (%) (Auto)2017-08-06 06:35:00* Test Item Value Reference Range Interpretation Comments Basophils (%) (Auto) (test code = 706-2) 0.3 0.0-1.0 [facility] HospitalIM GRANULOCYTES %2017-08-06 06:35:00* Test Item Value Reference Range Interpretation Comments IM GRANULOCYTES % (test code = IM GRANULOCYTES %) 1.8 0.0- 1.0 H [facility] HospitalNeutrophils # (Auto)2017-08-06 06:35:00* Test Item Value Reference Range Interpretation Comments Neutrophils # (Auto) (test code = 751-8) 5.3 2.1-6.9 [facility] HospitalLymphocytes # (Auto)2017-08-06 06:35:00* Test Item Value Reference Range Interpretation Comments Lymphocytes # (Auto) (test code = 98575-9) 0.5 1.0-3.2 L [facility] HospitalMonocytes # (Auto)2017-08-06 06:35:00* Test Item Value Reference Range Interpretation Comments Monocytes # (Auto) (test code = 742-7) 0.3 0.2-0.8 [facility] HospitalEosinophils # (Auto)2017-08-06 06:35:00* Test Item Value Reference Range Interpretation Comments Eosinophils # (Auto) (test code = 711-2) 0.0 0.0-0.4 [facility] HospitalBasophils # (Auto)2017-08-06 06:35:00* Test Item Value Reference Range Interpretation Comments Basophils # (Auto) (test code = 704-7) 0.0 0.0-0.1 [facility] HospitalAbsolute Immature Granulocyte (auto 2017-08-06 06:35:00* Test Item Value Reference Range Interpretation Comments Absolute Immature Granulocyte (auto (carla t code = Absolute Immature Granulocyte (auto) 0.11 0-0.1 H [facility] HospitalWhite Blood Duufv4938-24-60 06:35:00* Test Item Value Reference Range Interpretation Comments White Blood Count (test code = 6690-2) 6.13 4.8-10.8 [facility] HospitalRed Blood Tapsh5236-99-64 06:35:00* Test Item Value Reference Range Interpretation Comments Red Blood Count (test code = 789-8) 4.08 3.6-5.1 [facility] HospitalHemoglobin2018-03-18 06:35:00* Test Item Value Reference Range Interpretation Comments Hemoglobin (test code = 39839-6) 13.3 12.0-16.0 [facility] HospitalHematocrit2018-03-18 06:35:00* Test Item Value Reference Range Interpretation Comments Hematocrit (test code = 4544-3) 39.3 34.2-44.1 [facility] HospitalMean Corpuscular Ffluhq1187-17-47 06:35:00* Test Item Value Reference Range Interpretation Comments Mean Corpuscular Volume (test code = 787-2) 96.3 81-99 [facility] HospitalMean Corpuscular Yheaxzdatr9719-30-28 06:35:00* Test Item Value Reference Range Interpretation Comments Mean Corpuscular Hemoglobin (test code = 785-6) 32.6 28-32 H [facility] HospitalMean Corpuscular Hemoglobin Concent 2017-08-06 06:35:00* Test Item Value Reference Range Interpretation Comments Mean Corpuscular Hemoglobin Concent (test code = 786-4) 33.8 31-35 [facility] HospitalRed Cell Distribution Tmnik4187-01-70 06:35:00* Test Item Value Reference Range Interpretation Comments Red Cell Distribution Width (test code = 29624-0) 12.3 11.7 -14.4 [facility] HospitalPlatelet Zmlse2879-62-17 06:35:00* Test Item Value Reference Range Interpretation Comments Platelet Count (test code = 777-3) 202 140-360 [facility] HospitalNeutrophils (%) (Auto)2017-08-06 06:35:00 * Test Item Value Reference Range Interpretation Comments Neutrophils (%) (Auto) (test code = 51802-1) 85.7 38.7-80.0 H [facility] HospitalLymphocytes (%) (Auto)2017-08-06 06:35:00 * Test Item Value Reference Range Interpretation Comments Lymphocytes (%) (Auto) (test code = 736-9) 8.0 18.0-39.1 L [facility] HospitalMonocytes (%) (Auto)2017-08-06 06:35:00* Test Item Value Reference Range Interpretation Comments Monocytes (%) (Auto) (test code = 5905-5) 4.2 4.4-11.3 L [facility] HospitalEosinophils (%) (Auto)2017-08-06 06:35:00 * Test Item Value Reference Range Interpretation Comments Eosinophils (%) (Auto) (test code = 713-8) 0.0 0.0-6.0 [facility] HospitalBasophils (%) (Auto)2017-08-06 06:35:00* Test Item Value Reference Range Interpretation Comments Basophils (%) (Auto) (test code = 706-2) 0.3 0.0-1.0 [facility] HospitalIM GRANULOCYTES %2017-08-06 06:35:00* Test Item Value Reference Range Interpretation Comments IM GRANULOCYTES % (test code = IM GRANULOCYTES %) 1.8 0.0- 1.0 H [facility] HospitalNeutrophils # (Auto)2017-08-06 06:35:00* Test Item Value Reference Range Interpretation Comments Neutrophils # (Auto) (test code = 751-8) 5.3 2.1-6.9 [facility] HospitalLymphocytes # (Auto)2017-08-06 06:35:00* Test Item Value Reference Range Interpretation Comments Lymphocytes # (Auto) (test code = 92818-8) 0.5 1.0-3.2 L [facility] HospitalMonocytes # (Auto)2017-08-06 06:35:00* Test Item Value Reference Range Interpretation Comments Monocytes # (Auto) (test code = 742-7) 0.3 0.2-0.8 [facility] HospitalEosinophils # (Auto)2017-08-06 06:35:00* Test Item Value Reference Range Interpretation Comments Eosinophils # (Auto) (test code = 711-2) 0.0 0.0-0.4 [facility] HospitalBasophils # (Auto)2017-08-06 06:35:00* Test Item Value Reference Range Interpretation Comments Basophils # (Auto) (test code = 704-7) 0.0 0.0-0.1 [facility] HospitalAbsolute Immature Granulocyte (auto 2017-08-06 06:35:00* Test Item Value Reference Range Interpretation Comments Absolute Immature Granulocyte (auto (carla t code = Absolute Immature Granulocyte (auto) 0.11 0-0.1 H [facility] Bqkopsz5138-72-36 06:06:00* Test Item Value Reference Range Interpretation Comments Bedside Glucose (test code = 15113-0) 225 70-120 H M[facility] ID: [id number] Glucose 2017-08-06 06:06:00* Test Item Value Reference Range Interpretation Comments Bedside Glucose (test code = 83148-4) 225 70-120 H Meter ID: [id number] [facility] TexasAnti-Nuclear Antibody Ramonr0641-76-87 00:00:00* Test Item Value Reference Range Interpretation Comments Anti-Nuclear Antibody Screen (test code = 5048-4) Negative . Negative <1:80 Borderline 1:80 Positive > 1:80Performed at: [facility] [id number] Director: Panda Doshi MD, Phone: [phone] [facility] Children's HospitalAnti-Nuclear Antibody Dsqhay3670-00-96 00:00:00* Test Item Value Reference Range Interpretation Comments Anti-Nuclear Antibody Screen (test code = 5048-4) Negative . Negative <1:80 Borderline 1:80 Positive > 1:80Performed at: [facility] [id number] 3Lab Director: Panda Doshi MD, Phone: [phone] [facility] Children's HospitalBlood Kigmyye4309-79-82 16:23:00* Test Item Value Reference Range Interpretation Comments Blood Culture (test code = 01367188) NO GROWTH AFTER 5 DAYS, FINAL REPORT [facility] HospitalBlood Wzfytqy1864-63-87 16:23:00* Test Item Value Reference Range Interpretation Comments Blood Culture (test code = 91281818) NO GROWTH AFTER 5 DAYS, FINAL REPORT [facility] HospitalRheumatoid Kusepp2436-72-09 07:45:00* Test Item Value Reference Range Interpretation Comments Rheumatoid Factor (test code = 48420-9) -10.0 0.0-13.9 Performed at: [facility] [id number] Director: Panda Doshi MD, Phone: [phone] Medical Centereumorgan [facility] Zsqwjx9715-47-41 07:45:00* Test Item Value Reference Range Interpretation Comments Rheumatoid Factor (test code = 39016-4) -10.0 0.0-13.9 Performed at: [facility] [id number] Director: Panda Doshi MD, Phone: [phone] [facility] Children's HospitalUrine YES7335-95-52 16:09:00* Test Item Value Reference Range Interpretation Comments Urine WBC (test code = 5821-4) 0-5 0-5 [facility] HospitalU[facility] KCU8727-27-98 16:09:00* Test Item Value Reference Range Interpretation Comments Urine RBC (test code = 46559-6) 0-5 0-5 [facility] HospitalUrine Osjlxzwh2598-83-15 16:09:00* Test Item Value Reference Range Interpretation Comments Urine Bacteria (test code = 72524-8) RARE NONE [facility] HospitalUrine Epithelial Yzybf6437-59-77 16:09:00 * Test Item Value Reference Range Interpretation Comments Urine Epithelial Cells (test code = 65315-8) MODERATE NONE [facility] HospitalUrine YIU3024-56-62 16:09:00* Test Item Value Reference Range Interpretation Comments Urine WBC (test code = 5821-4) 0-5 0-5 [facility] HospitalUrine CGR8875-32-97 16:09:00* Test Item Value Reference Range Interpretation Comments Urine RBC (test code = 10947-2) 0-5 0-5 [facility] HospitalUrine Rlfhrveg2830-92-50 16:09:00* Test Item Value Reference Range Interpretation Comments Urine Bacteria (test code = 23389-8) RARE NONE [facility] Epithelial Obhuw3436-42-76 16:09:00 * Test Item Value Reference Range Interpretation Comments Urine Epithelial Cells (test code = 09449-1) MODERATE NONE [facility] HospitalUrine Zvaky6845-83-98 15:58:00* Test Item Value Reference Range Interpretation Comments Urine Color (test code = 5778-6) YELLOW YELLOW [facility] Mxibyqz9527-68-42 15:58:00* Test Item Value Reference Range Interpretation Comments Urine Clarity (test code = 17124-9) SL CLOUDY CLEAR [facility] Specific Qnycwgk1892-04-04 15:58:00 * Test Item Value Reference Range Interpretation Comments Urine Specific Media (test code = 5811-5) 1.005 1.010-1.02 5 L [facility] HospitalUrine tM1583-74-08 15:58:00* Test Item Value Reference Range Interpretation Comments Urine pH (test code = 46706-1) 7 5-7 [facility] HospitalU[facility] Leukocyte Bosugxcr7200-23-88 15:58:00* Test Item Value Reference Range Interpretation Comments Urine Leukocyte Esterase (test code = 5799-2) NEGATIVE NEGATIVE [facility] HospitalUrine Suxvyjk9830-87-71 15:58:00* Test Item Value Reference Range Interpretation Comments Urine Nitrite (test code = 63002-4) NEGATIVE NEGATIVE [facility] HospitalUrine Hjhfbhu6505-78-09 15:58:00* Test Item Value Reference Range Interpretation Comments Urine Protein (test code = 5804-0) NEGATIVE NEGATIVE [facility] HospitalUrine Glucose (UA)2017-08-04 15:58:00* Test Item Value Reference Range Interpretation Comments Urine Glucose (UA) (test code = 2349-9) NEGATIVE NEGATIVE [facility] HospitalUrine Jvuxneg0228-20-11 15:58:00* Test Item Value Reference Range Interpretation Comments Urine Ketones (test code = 88017-1) NEGATIVE NEGATIVE [facility] HospitalU[facility] Oqbameyxkprp0347-10-76 15:58:00* Test Item Value Reference Range Interpretation Comments Urine Urobilinogen (test code = 92543-1) 0.2 0.2-1 [facility] HospitalUrine Gssxkgfzk3169-95-98 15:58:00* Test Item Value Reference Range Interpretation Comments Urine Bilirubin (test code = 1978-6) NEGATIVE NEGATIVE [facility] Bmbry8782-46-63 15:58:00* Test Item Value Reference Range Interpretation Comments Urine Blood (test code = 77217-1) TRACE NEGATIVE H [facility] Gqdkn2276-90-56 15:58:00* Test Item Value Reference Range Interpretation Comments Urine Color (test code = 5778-6) YELLOW YELLOW [facility] Jqlvltu7574-41-08 15:58:00* Test Item Value Reference Range Interpretation Comments Urine Clarity (test code = 11169-9) SL CLOUDY CLEAR [facility] HospitalUrine Specific Dnaihqk6815-79-79 15:58:00 * Test Item Value Reference Range Interpretation Comments Urine Specific Media (test code = 5811-5) 1.005 1.010-1.02 5 L [facility] HospitalUrine [id number] 15:58:00* Test Item Value Reference Range Interpretation Comments Urine pH (test code = 32133-5) 7 5-7 [facility] HospitalU[facility] Leukocyte Vonpheyo4060-11-43 15:58:00* Test Item Value Reference Range Interpretation Comments Urine Leukocyte Esterase (test code = 5799-2) NEGATIVE NEGATIVE [facility] HospitalU[facility] Usojlsh3420-37-17 15:58:00* Test Item Value Reference Range Interpretation Comments Urine Nitrite (test code = 64060-2) NEGATIVE NEGATIVE [facility] HospitalU[facility] Oxiwfwh1012-91-63 15:58:00* Test Item Value Reference Range Interpretation Comments Urine Protein (test code = 5804-0) NEGATIVE NEGATIVE [facility] HospitalUrine Glucose (UA)2017-08-04 15:58:00* Test Item Value Reference Range Interpretation Comments Urine Glucose (UA) (test code = 2349-9) NEGATIVE NEGATIVE [facility] HospitalU[facility] Ysvmivx9871-06-37 15:58:00* Test Item Value Reference Range Interpretation Comments Urine Ketones (test code = 21120-2) NEGATIVE NEGATIVE [facility] HospitalU[facility] Mczerjegzuna2934-72-48 15:58:00* Test Item Value Reference Range Interpretation Comments Urine Urobilinogen (test code = 63845-0) 0.2 0.2-1 [facility] HospitalUrine Rvduiqxgo6027-72-63 15:58:00* Test Item Value Reference Range Interpretation Comments Urine Bilirubin (test code = 1978-6) NEGATIVE NEGATIVE [facility] HospitalU[facility] Uwlla5083-26-83 15:58:00* Test Item Value Reference Range Interpretation Comments Urine Blood (test code = 03120-6) TRACE NEGATIVE H [facility] HospitalArterial Blood [id number] 17:54:00* Test Item Value Reference Range Interpretation Comments Arterial Blood pH (test code = 2744-1) 7.38 7.31-7.41 [facility] HospitalArterial Blood Partial Pressure CO2 2017-07-31 17:54:00* Test Item Value Reference Range Interpretation Comments Arterial Blood Partial Pressure CO2 (test code = 2018-8) 41 41-51 [facility] HospitalArterial Blood Partial Pressure O2 2017-07-31 17:54:00* Test Item Value Reference Range Interpretation Comments Arterial Blood Partial Pressure O2 (test code = 2019-8) 53 80-105 L [facility] HospitalArterial Blood HPA37018-40-90 17:54:00* Test Item Value Reference Range Interpretation Comments Arterial Blood HCO3 (test code = 1960-4) 24 23-28 [facility] HospitalArterial Blood Base Sfdnfq7364-59-53 17:54:00* Test Item Value Reference Range Interpretation Comments Arterial Blood Base Excess (test code = 1925-7) -1.0 -2-3 [facility] HospitalArterial Blood Oxygen Saturation 2017-07-31 17:54:00* Test Item Value Reference Range Interpretation Comments Arterial Blood Oxygen Saturation (test code = 2708-6) 86.0 95-98 L [facility] HospitalArterial Blood [id number] 17:54:00* Test Item Value Reference Range Interpretation Comments Arterial Blood pH (test code = 2744-1) 7.38 7.31-7.41 [facility] [place] [facility] HospitalArterial Blood Partial Pressure CO2 2017-07-31 17:54:00* Test Item Value Reference Range Interpretation Comments Arterial Blood Partial Pressure CO2 (test code = 2018-) 41 41-51 [facility] [place] [facility] HospitalArterial Blood Partial Pressure O2 2017-07-31 17:54:00* Test Item Value Reference Range Interpretation Comments Arterial Blood Partial Pressure O2 (test code = 2018-12) 53 80-105 L [facility] Blood [id number] 17:54:00* Test Item Value Reference Range Interpretation Comments Arterial Blood HCO3 (test code = 1960-4) 24 23-28 [facility] [place] [facility] HospitalArterial Blood Base Hhywrp6389-43-08 17:54:00* Test Item Value Reference Range Interpretation Comments Arterial Blood Base Excess (test code = 1925-7) -1.0 -2-3 [facility] [place] [facility] HospitalArterial Blood Oxygen Saturation 2017-07-31 17:54:00* Test Item Value Reference Range Interpretation Comments Arterial Blood Oxygen Saturation (test code = 2708-6) 86.0 95-98 L [facility] [place] [facility] HospitalB-Type Natriuretic Xygbtst0350-28-38 16:48:00* Test Item Value Reference Range Interpretation Comments B-Type Natriuretic Peptide (test code = 54450-8) 154.7 0-100 H [facility] [place] [facility] HospitalB-Type Natriuretic Tpymojx7154-99-49 16:48:00* Test Item Value Reference Range Interpretation Comments B-Type Natriuretic Peptide (test code = 68365-3) 154.7 0-100 H [facility] HospitalCreatine Kinase IR5226-10-05 16:44:00* Test Item Value Reference Range Interpretation Comments Creatine Kinase MB (test code = 93158-5) 1.40 0-5.0 [facility] HospitalTroponin [id number] 16:44:00* Test Item Value Reference Range Interpretation Comments Troponin I (test code = AOY6097) 0.003 0-0.300 [facility] HospitalCreatine Kinase YJ2582-01-22 16:44:00* Test Item Value Reference Range Interpretation Comments Creatine Kinase MB (test code = 55338-6) 1.40 0-5.0 [facility] HospitalTroponin [id number] 16:44:00* Test Item Value Reference Range Interpretation Comments Troponin I (test code = PMZ1046) 0.003 0-0.300 [facility] HospitalTotal Mopxumybl6858-02-47 16:38:00* Test Item Value Reference Range Interpretation Comments Total Bilirubin (test code = 1975-2) 0.5 0.2-1.2 [facility] HospitalAspartate Amino Transf (AST/SGOT) 2017-07-31 16:38:00* Test Item Value Reference Range Interpretation Comments Aspartate Amino Transf (AST/SGOT) (test code = Aspartate Amino Transf (AST/SGOT)) 27 5-34 [facility] HospitalAlanine Aminotransferase (ALT/SGPT) 2017-07-31 16:38:00* Test Item Value Reference Range Interpretation Comments Alanine Aminotransferase (ALT/SGPT) (test code = 1742-6) 22 0-55 [facility] HospitalTotal Efdsycw7842-45-35 16:38:00* Test Item Value Reference Range Interpretation Comments Total Protein (test code = 2885-2) 7.3 6.5-8.1 [facility] HospitalAlbumin2018-03-12 16:38:00* Test Item Value Reference Range Interpretation Comments Albumin (test code = 1751-7) 3.3 3.5-5.0 L [facility] HospitalGlobulin2018-03-12 16:38:00* Test Item Value Reference Range Interpretation Comments Globulin (test code = 67146-5) 4.0 2.3-3.5 H [facility] HospitalAlbumin/Globulin Fafta5045-69-75 16:38:00 * Test Item Value Reference Range Interpretation Comments Albumin/Globulin Ratio (test code = 1759-0) 0.8 0.8-2.0 [facility] HospitalAlkaline Ueimhosgvwu2979-11-83 16:38:00* Test Item Value Reference Range Interpretation Comments Alkaline Phosphatase (test code = 6768-6) 89 40-150 [facility] HospitalCreatine Wmgcre3683-30-79 16:38:00* Test Item Value Reference Range Interpretation Comments Creatine Kinase (test code = 2157-6) 41 29-168 [facility] HospitalTotal Zyngelscn5551-23-51 16:38:00* Test Item Value Reference Range Interpretation Comments Total Bilirubin (test code = 1975-2) 0.5 0.2-1.2 [facility] HospitalAspartate Amino Transf (AST/SGOT) 2017-07-31 16:38:00* Test Item Value Reference Range Interpretation Comments Aspartate Amino Transf (AST/SGOT) (test code = Aspartate Amino Transf (AST/SGOT)) 27 5-34 [facility] HospitalAlanine Aminotransferase (ALT/SGPT) 2017-07-31 16:38:00* Test Item Value Reference Range Interpretation Comments Alanine Aminotransferase (ALT/SGPT) (test code = 1742-6) 22 0-55 [facility] HospitalTotal Lmjbkrr6576-15-62 16:38:00* Test Item Value Reference Range Interpretation Comments Total Protein (test code = 2885-2) 7.3 6.5-8.1 [facility] HospitalAlbumin2018-03-12 16:38:00* Test Item Value Reference Range Interpretation Comments Albumin (test code = 1751-7) 3.3 3.5-5.0 L [facility] HospitalGlobulin2018-03-12 16:38:00* Test Item Value Reference Range Interpretation Comments Globulin (test code = 23115-6) 4.0 2.3-3.5 H [facility] HospitalAlbumin/Globulin Sglzm1691-82-84 16:38:00 * Test Item Value Reference Range Interpretation Comments Albumin/Globulin Ratio (test code = 1759-0) 0.8 0.8-2.0 [facility] HospitalAlkaline Jwtbjalkhws9723-56-25 16:38:00* Test Item Value Reference Range Interpretation Comments Alkaline Phosphatase (test code = 6768-6) 89 40-150 [facility] HospitalCreatine Nzpblm7956-74-25 16:38:00* Test Item Value Reference Range Interpretation Comments Creatine Kinase (test code = 2157-6) 41 29-168 [facility] HospitalProthrombin Thot2236-05-58 16:29:00* Test Item Value Reference Range Interpretation Comments Prothrombin Time (test code = 5902-2) 12.7 11.9-14.5 [facility] HospitalProthromb Time International Ratio 2017-07-31 16:29:00* Test Item Value Reference Range Interpretation Comments Prothromb Time International Ratio (test code = 6301-6) 1.03 Oral Anticoagulant Therapy INR Values:1. Low Intensity Therapy 1.5 - 2.02 . Moderate Intensity Therapy 2.0 - 3.03. High Intensity Therapy(1) 2.5 - 3. 54. High Intensity Therapy(2) 3.0 - 4.05. Panic Value INR > 5.0 [facility] [id number] 16:29:00* Test Item Value Reference Range Interpretation Comments Prothrombin Time (test code = 5902-2) 12.7 11.9-14.5 [facility] International Ratio 2017-07-31 16:29:00* Test Item Value Reference Range Interpretation Comments Prothromb Time International Ratio (test code = 6301-6) 1.03 Oral Anticoagulant Therapy INR Values:1. Low Intensity Therapy 1.5 - 2.02 . Moderate Intensity Therapy 2.0 - 3.03. High Intensity Therapy(1) 2.5 - 3. 54. High Intensity Therapy(2) 3.0 - 4.05. 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 If this lesion is greater than 0.5 cm, it can be classified as an adenocarcino ma with a lepidic pattern. If the lesion is less than 0.5 cm, a diagnosis of at ypical adenomatous hyperplasia is favored. Therefore, clinical correlation is r ecommended. Dr. Fabián Ley from [facility] [place] had reviewed this ca se and concurs with the findings.[id number] lower lobe noduleRight lower lobe CT lung biopsyThe specimen is received in a formalin-filled container and labeled with the patient's information and labeled "CT lung biopsy right lower lobe" and consists of two sofia-red core biopsy ranging in length from 0.5 to 1 cm, submitt ed entirely A1. CG/pl Performed.RAD, CHEST, 1 VIEW, NON [id number] 21:47:00 Reason for exam:->Post Chest tube removalShould this be performed at the bedside?->YesFINAL REPORT EXAMINATION: AP PORTABLE CHEST RADIOGRAPH CLINICAL INDICATION: Chest tube removal IMPRESSION: Compared with 03/03/2017, 1726 hours. No definite evidence of a large pneumothorax following chest tube removal. However, evaluation for a small residual pneumothorax is limited by AP portable technique and patient's body habitus. Consider short-term imaging surveillance. Alternatively, a chest CT could be performed. Signed: Jamil López MDReport Verified Date/Time: 03/03/2017 21:47:16 Reading Location: [address] Reading Room , CHEST, 1 VIEW, NON [id number] 17:40:00Reason for exam:->post pig tail catheter removalto be completed in radiology departmentShould this be performed at the bedside?->Noat radiology departmentFINAL REPORT Chest, single frontal view History: Status [...] Kaminski Verified Date/Time: 03/03/2017 17:40:29 Reading Location: [facility] C013W Consult Reading Room , CHEST, 1 VIEW, NON [id number] 13:01:00Reason for exam:->chest tube for pneumothorax on Water sealShould this be performed at the bedside?->Yes FINAL REPORT Chest one view Discussion: There is mild car diac prominence. Right-sided pigtail pleural drain in place. There is right midl graciela minimal suspected atelectasis. No effusion or pneumothorax. Lungs otherwise clear. Signed: Libertad Romo Verified Date/Time: 03/03/2017 13:01:38 Re ading Location: [facility] Radiology Reading Room , CHEST, 1 VIEW, NON DEPT 2017-03-03 10:59:00Reason for exam:->ptxShould this be performed at the bedside?->YesFINAL REPORT Chest one view compared to March 02 Discussion: Right-sided pigtail pleural drain in place. No effusion or pneumothorax. Right midlung focal opacity laterally is noted more conspicuous and suggested a and probably reflecting atelectasis adjacent to pleural thickening. Left lung clear. Signed: Libertad Romo Verified Date/Time: 03/03/2017 10:59:40 Reading Location: [facility] Radiology Reading Room , BIOPSY, [id number] 15:45:00Reason for Exam:->R91.1FINAL REPORT PROCEDURE: CT-guided core biopsy of right [...] scan revealed 1.4 cm subsolid nodule in t he right lower lobe. This nodule was targeted for biopsy. The overlying skin was prepped and draped in the usual, sterile fashion and local 1% lidocaine anesthe bhargavi was administered. Under CT guidance, a 19-gauge introducer needle was insert ed into the posterolateral right back and placed at the periphery of the nodule. The inner stylette was removed, and a 20-gauge Temno core biopsy needle was pas sed through the introducer and into the nodule. Two core biopsy samples of the n odule were obtained. The needles were subsequently removed. Follow-up CT scan re vealed development of a moderate pneumothorax, which enlarged after a subsequent [address] scan. A right pleural drainage catheter was to be placed. The overlying skin was prepped and draped in the usual, sterile fashion and loca l 1% lidocaine anesthesia was administered. Under CT guidance, a 19-gauge needle was inserted into the right back and placed into the right pleural space. A 0.0 35 inch wire was passed through the needle and into the right pleural space. The needle was removed. An 8 [place] all-purpose drainage catheter was threaded over the wire and into the pleural space after serial dilatation of the tract with 6 and 8 [place] dilators. The wire was removed. The catheter was affixed to the sk in and connected to Pleur-evac. Post procedure CT scan showed near complete reso lution of the right pneumothorax. IMPRESSION:CT-guided core biopsy of right lowe r lobe nodule, complicated by postprocedural pneumothorax. Uncomplicated CT-guid ed placement of 8 [place] pleural drainage catheter on the right with near comple te resolution of pneumothorax on postprocedural CT scan. Signed: Kentrell Malcolm Verified Date/Time: 03/02/2017 15:45:51 Reading Location: [facility] C013 Y CT Body Reading Room , CHEST, PA OR AP, 1 [id number] 15:03:00Reason for exam:->S/P right lung biopsyShould this be performed at the bedside?->NoFINAL REPORT Chest one view compared to July 15, 2002 Discussion: Right-sided pigtail pleural drain is present with no visible effusi on or pneumothorax after lung biopsy. 1 cm focal opacity is seen in the right mi d chest corresponding with a focal region of pleural thickening present on CT. I MPRESSIONS: No visible pneumothorax. Signed: Libertad Romo Verified Date /Time: 03/02/2017 15:03:39 Reading Location: [facility] B1 C013W Consult Reading Room /[id number] 11:08:00* Test Item Value Reference Range Interpretation Comments PROTIME (BEAKER) (test code = 759) 12.6 seconds 11.7-14.7 INR (BEAKER) (test code = 370) 1.0 <=5.9 PARTIAL THROMBOPLASTIN TIME (BEAKER) (test code = 760) 33.0 seconds 22.5-36.0 RECOMMENDED COUMADIN/WARFARIN INR THERAPY RANGESSTANDARD DOSE: 2.0 - 3.0 Inclu rose: PROPHYLAXIS for venous thrombosis, systemic embolization; TREATMENT for ibrahima ous thrombosis and/or pulmonary embolus.HIGH RISK: Target INR is 2.5-3.5 for pat ients with mechanical heart valves.PLATELET [id number] 11:00:00* Test Item Value Reference Range Interpretation Comments PLATELET COUNT (BEAKER) (test code = 756) 186 K/CU MM 150-450 ABDOMEN-1VIEW (KUB) [facility] [address] [place], [place] [id number] Patient Name: JENNIFER BURCH MR #: [id number] : 1950 Age/Sex: 67/F Req #: [id number] Adm Physician: Ordered by: QUINTEN HAWKINS DIAMOND POWDER TECHNICIAN Report #: [id number] Location: ER Room/Bed: Procedure: [id number] DX/ABDOMEN-1VIEW (KUB) Exam D ate: 08/20/17 Exam Time: 1842 REPORT STATUS: Si gned ABDOMEN-1VIEW (KUB) Clinical history: Constipation, small bowel obs truction Technique: AP view abdomen, supine Comparison: CT chest 08/04/2017 Findings: No differentially dilated loops of bowel. Mild stool is seen wit hin the colon. No supine evidence of free air. Incidental splenic and pos sibly liver calcification/calcified granulomas. Age-indeterminate L1 compr ession deformity. Vascular calcifications. Bilateral inguinal clips. Impr ession: Nonobstructive bowel gas pattern. Signed by: Stacie Emmanuel on 08/20/2017 7:20 PM Dictated By: NISSA EVANS MD Electronically Sig jose By: NISSA EVANS MD on 08/20/171919 Transcribed By: GREGORY on 08/20/171919 COPY TO: QUINTEN HAWKINS DIAMOND POWDER TECHNICIAN CT CHEST W [facility] [address] [place], [place] [address] Patient Name: JENNIFER BURCH MR #: [id number] : 1950 Age/Sex: 67/F Req #: [id number] Adm Physician: CARMELO VIERA MD Ordered by: TRINITY DIAZ MD Report #: [id number] Locati on: IMCU Room/Bed: [facility] 197-1 Procedure: [id number] CT /CT CHEST W Exam Date: 08/04/17 Exam Time: 1450 REPORT STATUS: Signed EXAM: CT Chest WITH contrast (PE Protocol) INDICATI ON: COMPARISON: Chest x-ray dated 08/02/2017 TECHNIQUE: Matthew bernalt was scanned utilizing a multidetector helical scanner from the lung apex through the level of the diaphragm after administration of IV contrast. Thin s ection reconstructions were obtained with special concentration on the pulmona ry arteries. Coronal and sagittal reformations were obtained. Pulmonary emboli sm protocol was performed. IV CONTRAST: 100 mL of Omnipaque 350 COMP LICATIONS: None RADIATION DOSE: Total DLP: 532.19 mGy*cm Est imated effective dose: (DLP x 0.014 x size factor) mSv CTDIvol has been r eviewed. It is below the limits set by the Radiation Protocol Committee (RPC). FINDINGS: LINES/ TUBES: None. LUNGS AND AIRWAYS: Evaluation of t he lungs are limited by respiratory motion. No filling defect is identified wi thin the pulmonary arteries to the segmental level. Left lower lobe calcified granuloma. Bilateral dependent atelectasis, right slightly more to left. Air ways are normal. PLEURA: The pleural spaces are clear. HEART AND MEDIA STINUM: The thyroid gland is normal. No mediastinal, hilar or axillary lympha denopathy. The heart is mildly enlarged. There is no pericardial effusion. . Main pulmonary artery measures 3 cm in diameter. Mild atherosclerotic roma cification of coronary arteries. UPPER ABDOMEN: Multiple splenic calcified granulomas. BONES: Age indeterminate compression fracture of T5 vertebral b aster with exaggerated kyphosis, centered at this level. SOFT TISSUES: Unre markable. IMPRESSION: No pulmonary emboli. Age indeterminate compressi on fracture of T5 vertebral body. Signed by: Dr. Demarcus Painter MD on 2017 3:45 PM Dictated By: DEMARCUS PAINTER MD 1545 Transcribed By: GREGORY on 08/04/17 1545 C OPY TO: TRINITY DIAZ MD VENOUS DUPLEX LWR B/L [place] [address] Patient Name : JENNIFER BURCH MR #: [id number] : 1950 Age/Sex: 67/F Adm Physician : CARMELO CAMPBELL MD Admit Date : 07/31/17 Location : [facility] Room/Bed : [place] [address] REPORT: Cardiology Report DATE OF STUDY: August 03, 2017 DOPPLER SCAN OF LOWER EXTREMITY VEINS Lower extremity veins were interrogated using the duplex scanning method. The veins were compressible. There was no definite deep venous thrombosis. CONCLUSIONS: No definite deep venous thrombosis involving the lower ex tremity veins bilaterally. Job#: [id number] CC: CARMELO CAMPBELL MD Signature Date Dictated By: DANIEL KAM MD Transcribed By: SMEDS on 08/09/17 < Electronically signed by DANIEL KAM MD><<Signature on File>>08/15/17 1004 COPY TO: CHEST SINGLE (PORTABLE) [place] [address] Patient Name: JENNIFER BURCH MR #: [id number] : 1950 Age/Sex: 67/F Req #: [id number] Adm Physician: CARMELO CAMPBELL MD Ordered by: TRINITY DIAZ MD Report #: [id number] Location: [facility] Room/Bed: [place] [address] Procedure: [id number] DX /CHEST SINGLE (PORTABLE) Exam Date: 08/02/17 Exam Ti me: 0500 REPORT STATUS: Signed CHEST SINGLE (PORTABLE), 08/02/2017 5:00 AM Technique: CHEST SINGLE (PORTABLE) Comparison: 08/01/2017. Clinical h istory: COPD exacerbation Findings: See Impression Impression: 1. Stable mildly enlarged cardiac silhouette. 2. Left hilar parviz calcifications and left lung calcified granuloma. Previously described right lung nodule not seen. 3. Large lung volumes/hyperinflation without consolidation. No effusion or pneumothorax. Signed by: Dr Nissa Evans MD on 08/02/2017 6:24 AM Dictated By: NISSA EVANS MD 3 Transcribed By: GREGORY on 08/02/17623 COPY TO: TRINITY KNOX MD CHEST SINGLE (PORTABLE) [place] [address] Patient Name: JENNIFER BRUCH MR #: [id number] : 1950 Age/Sex: 67/F Req #: [id number] Adm Physician: CARMELO CAMPBELL MD Ordered by: STONE HAMLIN MD Report #: [id number] Location: [facility] Room/Bed: [place] [address] Procedure: [id number] DX /CHEST SINGLE (PORTABLE) Exam Date: 08/01/17 Exam Ti me: 0545 REPORT STATUS: Signed CHEST SINGLE (PORTABLE), 08/01/2017 5:00 AM Technique: CHEST SINGLE (PORTABLE) Comparison: None available. Clini roma history: Pneumonia Findings: See Impression Impression: 1. Mil dly enlarged cardiac silhouette. 2. Left hilar parviz calcifications and left l graciela calcified granuloma. 3. 5 mm nodule projects over the right lung, which ma y be calcified or summation shadow or true nodule. Recommend follow-up upright PA and lateral. 4. No consolidation. No effusion or pneumothorax. Signed by: Dr Nissa Evans MD on 08/01/2017 6:32 AM Dictated By: NISSA HENSON MD 1 Transcribe d By: GREGORY on 08/01/17 0632 COPY TO: STONE HAMLIN MD CHEST SINGLE (PORTABLE) [place] [address] Patient Name: JENNIFER BURCH MR #: [id number] : 1950 Age/Sex: 67/F Req #: [id number] Adm Physician: Ordered by: STONE HAMLIN MD Report #: [id number] Location: ER Room/Bed: Procedure: [id number] DX/CHEST SINGLE (PORTABLE) Ex am Date: 07/31/17 Exam Time: 1700 REPORT STATUS : Signed PROCEDURE: CHEST SINGLE (PORTABLE) 1707 hrs. COMPARISON: N one. INDICATIONS: PRODUCTIVE COUGH FINDINGS: LUNGS: No wel l-inflated. Mild bibasilar atelectasis. No mass or infiltrate. Pulmonary vasc ular markings are normal. CARDIAC: Mildly enlarged. MEDIASTINUM: Normal. PLEURA: No pleural thickening or pleural effusion. No pneumothorax. BONES : A mandibular plate is incompletely imaged. No focal osseous lesions. CONCLUSION: No acute cardiopulmonary process. Dictated by: Sai Wheatley M.D. on 07/31/2017 at 17:15 Electronically approved by: Sai Wheatley M.D. on 07/31/2017 at 17:15 Dictated By: KENROY WHEATLEY MD 171 5 Transcribed By: DARYA on 07/31/17 1718 COPY TO: STONE HAMLIN MD
--- NOTE | 2019-12-29 20:07 | Emergency Department Note ---
History of Present Illnes History of Present Illness Chief Complaint: Respiratory History of Present Illness This is a 69 year old female 1 WEEK PROGRESSIVE SHORTNESS OF BREATH; ESTABLISHED HISTORY OF COPD AND CHF; REPORTS WHEEZING, COUGH,SOB, STATES FEELS LIKE EVERY OTHER TIME HER COPD HAS FLARED UP, PT STILL SMOKES. Historian: Patient Arrival Mode: Car Onset (how long ago): day(s) (7) Location: CHEST Quality: WHEEZING, COUGH, SOB Radiation: Reports non-radiation Severity: moderate Onset quality: gradual Duration (how long): day(s) (6) Timing of current episode: constant Progression: worsening Chronicity: recurrent Context: Denies recent illness, Denies recent surgery, Denies trauma/injury Relieving factors: none Exacerbating factors: none Associated symptoms: Reports denies other symptoms Treatments prior to arrival: none Past Medical/Family History Physician Review I have reviewed the patient's past medical and family history. Any updates have been documented here. 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 ANGIOPLASTY X2 CARDIAC STENTS Social History Smoking Cessation: Current every day smoker Alcohol Use: None Any Illegal Drug Use: No Family History Family history of heart diseas: No Other family history HTN Other Last Tetanus: <10 YRS Review of Systems Review of Systems Constitutional: Reports no symptoms EENTM: Reports no symptoms Cardiovascular: Reports no symptoms Respiratory: Reports as per HPI Gastrointestinal: Reports no symptoms Genitourinary: Reports no symptoms Musculoskeletal: Reports no symptoms Integumentary: Reports no symptoms Neurological: Reports no symptoms Psychological: Reports no symptoms Endocrine: Reports no symptoms Hematological/Lymphatic: Reports no symptoms Physical Exam Related Data Allergies: Coded Allergies: Penicillins (Verified Allergy, Unknown, 08/20/17) alendronate sodium (Verified Allergy, Unknown, 08/20/17) niacin (Verified Allergy, Unknown, 08/20/17) varenicline (Verified Allergy, Unknown, 08/20/17) Triage Vital Signs Vital Signs Date Time Temp Pulse Resp B/P (MAP) Pulse Ox O2 Delivery O2 Flow Rate FiO2 12/29/19 19:55 98.3 79 24 98/56 97 Room Air Vital signs reviewed: Yes Physical Exam CONSTITUTIONAL Constitutional: Present well-developed, Present well-nourished; Absent distressed HENT HENT: Present normocephalic, Present atraumatic, Present oropharynx clear/moist, Present nose normal HENT L/R: Present left ext ear normal, Present right ext ear normal EYES Eyes: Reports PERRL, Reports conjunctivae normal NECK Neck: Present ROM normal PULMONARY Pulmonary: Present effort normal, Present other (MILD WHEEZING ALL 4 LUNG MAKI, ) CARDIOVASCULAR Cardiovascular: Present regular rhythm, Present heart sounds normal, Present capillary refill normal, Present normal rate GASTROINTESTINAL Abdominal: Present soft, Present nontender, Present bowel sounds normal GENITOURINARY Genitourinary: Present exam deferred SKIN Skin: Present warm, Present dry MUSCULOSKELETAL Musculoskeletal: Present ROM normal NEUROLOGICAL Neurological: Present alert, Present oriented x 3, Present no gross motor or sensory deficits PSYCHOLOGICAL Psychological: Present mood/affect normal, Present judgement normal Results Laboratory Laboratory Laboratory Tests Test 12/29/19 19:45 White Blood Count 3.41 x10e3/uL (4.8-10.8) Red Blood Count 4.63 x10e6/uL (3.6-5.1) Hemoglobin 14.5 g/dL (12.0-16.0) Hematocrit 43.1 % (34.2-44.1) Mean Corpuscular Volume 93.1 fL (81-99) Mean Corpuscular Hemoglobin 31.3 pg (28-32) Mean Corpuscular Hemoglobin Concent 33.6 g/dL (31-35) Red Cell Distribution Width 13.4 % (11.7-14.4) Platelet Count 198 x10e3/uL (140-360) Neutrophils (%) (Auto) 83.2 % (38.7-80.0) Lymphocytes (%) (Auto) 13.8 % (18.0-39.1) Monocytes (%) (Auto) 1.5 % (4.4-11.3) Eosinophils (%) (Auto) 0.6 % (0.0-6.0) Basophils (%) (Auto) 0.9 % (0.0-1.0) Neutrophils # (Auto) 2.8 (2.1-6.9) Lymphocytes # (Auto) 0.5 (1.0-3.2) Monocytes # (Auto) 0.1 (0.2-0.8) Eosinophils # (Auto) 0.0 (0.0-0.4) Basophils # (Auto) 0.0 (0.0-0.1) Absolute Immature Granulocyte (auto 0 x10e3/uL (0-0.1) Sodium Level 127 mmol/L (136-145) Potassium Level 4.1 mmol/L (3.5-5.1) Chloride Level 95 mmol/L (98-107) Carbon Dioxide Level 18 mmol/L (22-29) Anion Gap 18.1 mmol/L (8-16) Blood Urea Nitrogen 11 mg/dL (7-26) Creatinine 0.84 mg/dL (0.57-1.11) Estimat Glomerular Filtration Rate > 60 ML/MIN (60-) BUN/Creatinine Ratio 13 (6-25) Glucose Level 158 mg/dL (74-118) Calcium Level 9.2 mg/dL (8.4-10.2) Total Bilirubin 0.4 mg/dL (0.2-1.2) Aspartate Amino Transf (AST/SGOT) 26 IU/L (5-34) Alanine Aminotransferase (ALT/SGPT) 18 IU/L (0-55) Alkaline Phosphatase 52 IU/L (40-150) Creatine Kinase 46 IU/L (29-168) Creatine Kinase MB 3.90 ng/mL (0-5.0) Troponin I 0.009 ng/mL (0-0.300) B-Type Natriuretic Peptide 128.0 pg/mL (0-100) Total Protein 7.3 g/dL (6.5-8.1) Albumin 3.5 g/dL (3.5-5.0) Globulin 3.8 g/dL (2.3-3.5) Albumin/Globulin Ratio 0.9 (0.8-2.0) Laboratory Tests Test 12/29/19 19:45 Lab results reviewed: Yes Imaging Imaging results reviewed: Yes Impressions EXAMINATION: CHEST SINGLE (PORTABLE) INDICATION: SOB, COPD EXACERBATION COMPARISON: Radiograph dated 12/17/2019 FINDINGS: Heart size is normal. Pulmonary vasculature is not distended. Unchanged prominence of the bilateral niramla. Calcified right paratracheal and bilateral hilar lymph nodes. Band of atelectasis in the right middle lobe. Calcific granuloma in the left midlung. Mild blunting of the left hemidiaphragm. Unchanged prominent interstitial densities likely related to reported emphysema. IMPRESSION: 1. Emphysematous changes without evidence of new airspace disease. 2. Calcified right paratracheal and bilateral hilar lymph nodes. Consider outpatient pulmonology consultation to evaluate for sarcoidosis. Signed by: Reji Rouse MD on 12/29/2019 9:02 PM Dictated By: REJI ROUES MD 01 Transcribed By: GREGORY on 12/29/192101 COPY TO: FRANCESCO LUNSFORD MD~ Assessment & Plan Medical Decision Making MDM PT WITH H/O COPD AND CHF WITH SOB AND WHEEZING CBC, CMP, EKG, CARDIAC ENZYMES, BNP, CXR ORDERED TO EVAL FOR PNEUMONIA, MYOCAR DIAL INFARCTION, ELECTROLYTE ABNORMALITY, PULMONARY EDEMA, CHF ALBUTEROL NEB TIMES 2 ORDERED ATROVENT NEB TIMES 1 ORDERED SOLU-MEDROL 125 MG IV ORDERED PT DISCHARGED WITH FOLLOWING SCRIPTS MEDROL DOSE HAROLDO DIRECTED ZPAK DIRECTED Reassessment Reassessment time: 21:04 Reassessment PT STATES FEELS MUCH BETTER PT WITH ONLY MINIMAL END EXPIRATORY WHEEZING AT BASE OF LUNGS BILATERAL NOW Assessment & Plan Final Impression: (1) COPD exacerbation Depart Disposition: HOME, SELF-CARE Last Vital Signs Date Time Temp Pulse Resp B/P (MAP) Pulse Ox O2 Delivery O2 Flow Rate FiO2 12/29/19 19:55 98.3 79 24 98/56 97 Room Air Home Meds Active Scripts Prednisone (PREDNISONE) 20 Mg Tab, 40 MG PO DAILY for 4 Days, TAB Prov:ZIA LACY FLAME GOUGER 11/28/19 Albuterol Sulf* (PROAIR HFA INHALER*) 8.5 Gm Inh, 2 INH PO Q4HR PRN for SHORTNESS OF BREATH, #1 INH 0 Refills Prov:TRINITY DIAZ MD, ABI 08/02/17 Reported Medications Tiotropium Clark (SPIRIVA) 18 Mcg Cap.w.dev, 18 MCG INH, BOTTLE 11/28/19 Nitroglycerin (NITROGLYCERIN) 0.4 Mg Tab.subl, 0.4 MG SL Q5MIN PRN for CHEST PAIN, TAB 11/28/19 Acetaminophen (ACETAMINOPHEN) 325 Mg Tablet, 650 MG PO Q6H PRN for Mild Pain (1- 3) or Fever>100.8 for 5 Days, TAB 11/28/19 Fluticasone Propionate (Flonase Allergy Relief) 9.9 Ml [place].susp, 1 EA INH DAILY 1 SPRAY EACH NOSTRIL 11/28/19 Metoprolol Tartrate (METOPROLOL TARTRATE) 50 Mg Tablet, 50 MG PO BID, TAB 11/28/19 Isosorbide Mononitrate (ISOSORBIDE MONONITRATE ER) 30 Mg Tab.er.24h, 60 MG PO DAILY, #30 TAB 07/31/17 Atorvastatin Calcium (ATORVASTATIN CALCIUM) 20 Mg Tablet, 40 MG PO HS, #30 TAB 07/31/17 Aspirin (ASPIR 81) 81 Mg Tablet.dr, 81 MG PO DAILY 07/31/17 Amlodipine Besylate (AMLODIPINE BESYLATE) 10 Mg Tablet, 10 MG PO DAILY, #30 TAB 07/31/17 Albuterol Sulfate (ALBUTEROL SULFATE) 0.63 Mg/3 Ml Vial.neb, 1 INH INH Q6H 07/31/17 Medications in the ED Albuterol Sulfate 6 ml NOW NEB ; Start 12/29/19 at 19:30; Stop 12/29/19 at 20:59 Ipratropium Clark 2.5 ml ONCE ONCE NEB ; Start 12/29/19 at 19:30; Stop 12/29/19 at 19:31; Status DC Methylprednisolone Sodium Succinate 125 mg ONCE IV ; Start 12/29/19 at 19:30; Stop 12/29/19 at 20:59 FRANCESCO LUNSFORD MD Dec 29, 2019 20:07
[2019-12-29 20:17] LABS: ALANINE AMINOTRANSFERASE 18 IU/L (0-55); ALBUMIN 3.5 g/dL (3.5-5.0); ALBUMIN/GLOBULIN RATIO 0.9 (0.8-2.0); ALKALINE PHOSPHATASE 52 IU/L (40-150); ANION GAP 18.1 mmol/L (8-16); BLOOD UREA NITROGEN 11 mg/dL (7-26); BUN/CREATININE RATIO 13 (6-25); CALCIUM 9.2 mg/dL (8.4-10.2); CARBON DIOXIDE 18 mmol/L (22-29); CHLORIDE 95 mmol/L (98-107); CREATINE KINASE 46 IU/L (29-168); CREATININE, SERUM 0.84 mg/dL (0.57-1.11); EST GLOMERULAR FILTRATION RATE > 60 ML/MIN (60-); GLUCOSE 158 mg/dL (74-118); POTASSIUM 4.1 mmol/L (3.5-5.1); SODIUM 127 mmol/L (136-145)
--- NOTE | 2019-12-29 21:06 | Diagnostic Imaging Report ---
EXAMINATION: CHEST SINGLE (PORTABLE) INDICATION: SOB, COPD EXACERBATION COMPARISON: Radiograph dated 12/17/2019 FINDINGS: Heart size is normal. Pulmonary vasculature is not distended. Unchanged prominence of the bilateral nirmala. Calcified right paratracheal and bilateral hilar lymph nodes. Band of atelectasis in the right middle lobe. Calcific granuloma in the left midlung. Mild blunting of the left hemidiaphragm. Unchanged prominent interstitial densities likely related to reported emphysema. IMPRESSION: 1. Emphysematous changes without evidence of new airspace disease. 2. Calcified right paratracheal and bilateral hilar lymph nodes. Consider outpatient pulmonology consultation to evaluate for sarcoidosis. Signed by: Tomi Power MD on 12/29/2019 9:02 PM
[2019-12-29 21:57] VITALS: BP 96/59
== END 2019-12-29 22:21 | disposition home or self-care (01) ==
LOC: ER 19:11
DX: J44.1 Chronic obstructive pulmonary disease with (acute) exacerbation (principal); R05 Cough; R06.02 Shortness of breath; I10 Essential (primary) hypertension; Z85.118 Personal history of other malignant neoplasm of bronchus and lung; F17.210 Nicotine dependence, cigarettes, uncomplicated
CPT/HCPCS: 36415; 71045; 80053; 82550; 82553; 83880; 84484; 85025; 93005; 94640; 99284; J2930

== ENCOUNTER 2022-06-19 22:15 | Emergency (ER) | payer MEDICARE ==
[~2022-06-19] VITALS: Ht 152.4 cm; Wt 72.6 kg
[2022-06-19] MEDS ORDERED: ALBUTEROL/IPRATROPIUM 3 ML NEB NEB SCH (22:30)
[2022-06-19] MEDS ORDERED: METHYLPREDNISOLONE SOD SUCC 125 MG/2ML VIAL IV ONE (22:30)
[2022-06-19] MEDS ORDERED: ALBUTEROL/IPRATROPIUM 3 ML NEB NEB ONE (22:30)
[2022-06-19] MEDS ORDERED: SODIUM CHLORIDE FLUSH 10 ML SYR IV PRN (22:30)
[2022-06-19] MEDS ORDERED: ASPIRIN 325 MG TAB PO ONE (22:30)
[2022-06-19 23:24] LABS: BASOPHILS # (AUTO) 0.1 (0.0-0.1); BASOPHILS % 1.1 % (0.0-1.0); EOSINOPHILS # (AUTO) 0.4 (0.0-0.4); EOSINOPHILS % 7.4 % (0.0-6.0); HEMATOCRIT 38.6 % (34.2-44.1); HEMOGLOBIN 12.9 g/dL (12.0-16.0); LYMPHOCYTES # (AUTO) 1.2 (1.0-3.2); LYMPHOCYTES % 22.6 % (18.0-39.1); MEAN CORPUSCULAR HEMOGLOBIN 32.4 pg (28-32); MEAN CORPUSCULAR HGB CONC 33.4 g/dL (31-35); MONOCYTES # (AUTO) 0.3 (0.2-0.8); MONOCYTES % 5.9 % (4.4-11.3); NEUTROPHILS # (AUTO) 3.4 (2.1-6.9); NEUTROPHILS % 62.8 % (38.7-80.0); PLATELET COUNT 144 x10e3/uL (140-360); RED BLOOD COUNT 3.98 x10e6/uL (3.6-5.1); RED CELL DISTRIBUTION WIDTH 13.6 % (11.7-14.4)
[2022-06-19] MEDS ORDERED: ALBUTEROL/IPRATROPIUM 3 ML NEB ONE (23:25)
[2022-06-19 23:31] LABS: INR 0.89; PARTIAL THROMBOPLASTIN TIME 30.9 seconds (23.8-35.5); PROTHROMBIN TIME 12.2 seconds (11.9-14.5)
[2022-06-19 23:40] LABS: ALBUMIN/GLOBULIN RATIO 0.9 (0.8-2.0); ANION GAP 12.9 mmol/L (8-16); CALCIUM 8.9 mg/dL (8.4-10.2); CREATININE, SERUM 0.72 mg/dL (0.57-1.11); POTASSIUM 3.9 mmol/L (3.5-5.1)
[2022-06-20] MEDS ORDERED: IPRATROPIU0.2 MG/1 M INH (00:07)
[2022-06-20] MEDS ORDERED: ALBUTEROL2.5 MG/3 M INH (00:07)
[2022-06-20] MEDS ORDERED: PREDNISONE20 MG PO (00:07)
[2022-06-20 00:46] VITALS: BP 129/74
== END 2022-06-20 00:15 | disposition home or self-care (01) ==
LOC: ER 22:19
DX: R06.02 Shortness of breath (principal); J44.1 Chronic obstructive pulmonary disease with (acute) exacerbation; I10 Essential (primary) hypertension; E78.5 Hyperlipidemia, unspecified; Z85.118 Personal history of other malignant neoplasm of bronchus and lung; Z85.818 Personal history of malignant neoplasm of other sites of lip, oral cavity, and pharynx; Z85.828 Personal history of other malignant neoplasm of skin; Z95.5 Presence of coronary angioplasty implant and graft; F17.210 Nicotine dependence, cigarettes, uncomplicated
CPT/HCPCS: 36415; 71045; 80053; 83880; 84484; 85025; 85610; 85730; 93005; 94640 ×2; 94799; 99284; J2930

== ENCOUNTER 2022-07-09 20:10 | Inpatient (IN) | payer MEDICARE ==
[~2022-07-09] VITALS: Ht 152.4 cm; Wt 63.5 kg
[~2022-07-09 20:10] MED LIST changes: +ALBUTEROL2.5 MG/3 M INH; +IPRATROPIU0.2 MG/1 M INH; +LEVOFLOXACIN 750MG/D5W 150ML 150 ML IV SCH
[2022-07-09] MEDS ORDERED: ALBUTEROL/IPRATROPIUM 3 ML NEB NEB STA (20:14)
[2022-07-09] MEDS: METHYLPREDNISOLONE SOD SUCC 40 MG/ML VIAL 1ML IV SCH (20:38)
[2022-07-09 20:51] LABS: BASOPHILS # (AUTO) 0.1 (0.0-0.1); BASOPHILS % 0.4 % (0.0-1.0); EOSINOPHILS # (AUTO) 0.2 (0.0-0.4); EOSINOPHILS % 1.2 % (0.0-6.0); HEMATOCRIT 47.5 % (34.2-44.1); HEMOGLOBIN 15.6 g/dL (12.0-16.0); LYMPHOCYTES # (AUTO) 3.4 (1.0-3.2); MEAN CORPUSCULAR HEMOGLOBIN 32.8 pg (28-32); MEAN CORPUSCULAR HGB CONC 32.8 g/dL (31-35); MEAN CORPUSCULAR VOLUME 99.8 fL (81-99); MONOCYTES # (AUTO) 0.9 (0.2-0.8); MONOCYTES % 6.9 % (4.4-11.3); NEUTROPHILS % 63.5 % (38.7-80.0); PLATELET COUNT 236 x10e3/uL (140-360); RED BLOOD COUNT 4.76 x10e6/uL (3.6-5.1); RED CELL DISTRIBUTION WIDTH 14.6 % (11.7-14.4)
[2022-07-09 21:13] LABS: ALBUMIN 3.6 g/dL (3.5-5.0); ANION GAP 14.7 mmol/L (8-16); CALCIUM 9.1 mg/dL (8.4-10.2); CREATININE, SERUM 0.83 mg/dL (0.57-1.11); POTASSIUM 3.7 mmol/L (3.5-5.1)
[2022-07-10] VITALS (10 sets, daily range): BP systolic 102–160; BP diastolic 50–86
[2022-07-10] MEDS: METHYLPREDNISOLONE SOD SUCC 40 MG/ML VIAL 1ML IV SCH ×3 (02:02→21:31)
[2022-07-10 08:07] LABS: BASOPHILS % 0.1 % (0.0-1.0); HEMATOCRIT 42.1 % (34.2-44.1); HEMOGLOBIN 14.8 g/dL (12.0-16.0); LYMPHOCYTES # (AUTO) 0.6 (1.0-3.2); LYMPHOCYTES % 8.2 % (18.0-39.1); MEAN CORPUSCULAR HEMOGLOBIN 35.2 pg (28-32); MEAN CORPUSCULAR HGB CONC 35.2 g/dL (31-35); MONOCYTES % 0.6 % (4.4-11.3); NEUTROPHILS # (AUTO) 6.1 (2.1-6.9); NEUTROPHILS % 90.4 % (38.7-80.0); PLATELET COUNT 139 x10e3/uL (140-360); RED BLOOD COUNT 4.21 x10e6/uL (3.6-5.1); RED CELL DISTRIBUTION WIDTH 15.1 % (11.7-14.4)
[2022-07-10 08:33] LABS: CREATINE KINASE MB 2.3 ng/mL (0-5.0)
[2022-07-10 08:39] LABS: ALBUMIN 3.2 g/dL (3.5-5.0); ANION GAP 15.4 mmol/L (8-16); CALCIUM 8.8 mg/dL (8.4-10.2); CREATININE, SERUM 0.75 mg/dL (0.57-1.11); POTASSIUM 4.4 mmol/L (3.5-5.1)
[2022-07-10] MEDS ORDERED: ACETAMINOPHEN 325 MG TAB PO PRN (09:00)
[2022-07-10] MEDS ORDERED: ALBUTEROL SULF 0.083% NEB SOLN 3 ML NEB INH PRN (09:00)
[2022-07-10] MEDS ORDERED: ONDANSETRON HCL INJ 2MG/ML 2ML 2 MG/ML VIAL IV PRN (09:15)
[2022-07-10] MEDS: AMLODIPINE BESYLATE 10 MG TAB PO SCH (09:45)
[2022-07-10] MEDS: METOPROLOL TARTRATE 50 MG TAB PO SCH ×2 (09:45→16:13)
[2022-07-10] MEDS: ASPIRIN 81 MG CHEW TAB PO SCH (09:45)
[2022-07-10] MEDS ORDERED: REMDESIVIR 200MG 200 MG in SODIUM CHLORIDE 0.9% 100 ML IV ONE (10:30)
[2022-07-10] MEDS: ALBUTEROL SULFATE HFA 8GM INHALATION AEROSOL INH PRN (13:01)
[2022-07-10] MEDS: TIOTROPIUM 18 MCG INH POWDER INH SCH (13:01)
[2022-07-10] MEDS: ENOXAPARIN 30 MG/0.3 ML SYR SC SCH (16:13)
[2022-07-10] MEDS ORDERED: ZOLPIDEM TARTRATE 5 MG TAB PO PRN (21:00)
[2022-07-10] MEDS ORDERED: ATORVASTATIN 20 MG TAB PO SCH (21:00)
[2022-07-10 22:30] LABS: CREATINE KINASE MB 1.9 ng/mL (0-5.0)
[2022-07-11] VITALS (8 sets, daily range): BP systolic 119–146; BP diastolic 56–82
[2022-07-11 06:42] LABS: BASOPHILS % 0.1 % (0.0-1.0); HEMATOCRIT 39.6 % (34.2-44.1); LYMPHOCYTES # (AUTO) 0.7 (1.0-3.2); MEAN CORPUSCULAR HEMOGLOBIN 36.8 pg (28-32); MEAN CORPUSCULAR HGB CONC 35.4 g/dL (31-35); MEAN CORPUSCULAR VOLUME 104.2 fL (81-99); MONOCYTES # (AUTO) 0.3 (0.2-0.8); MONOCYTES % 2.3 % (4.4-11.3); NEUTROPHILS # (AUTO) 10.6 (2.1-6.9); NEUTROPHILS % 90.8 % (38.7-80.0); PLATELET COUNT 126 x10e3/uL (140-360); RED CELL DISTRIBUTION WIDTH 17.8 % (11.7-14.4)
[2022-07-11] MEDS: TIOTROPIUM 18 MCG INH POWDER INH SCH (06:50)
[2022-07-11 07:09] LABS: ANION GAP 13.9 mmol/L (8-16); CALCIUM 8.6 mg/dL (8.4-10.2); CREATININE, SERUM 0.77 mg/dL (0.57-1.11); POTASSIUM 3.9 mmol/L (3.5-5.1)
[2022-07-11 07:13] LABS: CREATINE KINASE MB 2.1 ng/mL (0-5.0)
[2022-07-11] MEDS: METHYLPREDNISOLONE SOD SUCC 40 MG/ML VIAL 1ML IV SCH ×2 (08:48→21:34)
[2022-07-11] MEDS: ASPIRIN 81 MG CHEW TAB PO SCH (08:49)
[2022-07-11] MEDS: METOPROLOL TARTRATE 50 MG TAB PO SCH ×2 (08:49→17:19)
[2022-07-11] MEDS: AMLODIPINE BESYLATE 10 MG TAB PO SCH (08:50)
[2022-07-11] MEDS: REMDESIVIR 100MG 100 MG in SODIUM CHLORIDE 0.9% 100 ML IV SCH (14:26)
[2022-07-11] MEDS ORDERED: ONDANSETRON HCL 4 MG ORAL DISINTEGRATING TAB PO PRN (14:30)
[2022-07-11] MEDS: ENOXAPARIN 30 MG/0.3 ML SYR SC SCH (17:19)
[2022-07-11] MEDS: ATORVASTATIN 40 MG TAB PO SCH (21:34)
[2022-07-12] VITALS (8 sets, daily range): BP systolic 92–147; BP diastolic 53–73
[2022-07-12 06:11] LABS: BASOPHILS % 0.2 % (0.0-1.0); HEMATOCRIT 37.6 % (34.2-44.1); HEMOGLOBIN 13.2 g/dL (12.0-16.0); LYMPHOCYTES # (AUTO) 0.6 (1.0-3.2); MEAN CORPUSCULAR HEMOGLOBIN 36.7 pg (28-32); MEAN CORPUSCULAR HGB CONC 35.1 g/dL (31-35); MEAN CORPUSCULAR VOLUME 104.4 fL (81-99); MONOCYTES # (AUTO) 0.3 (0.2-0.8); MONOCYTES % 2.6 % (4.4-11.3); NEUTROPHILS # (AUTO) 9.7 (2.1-6.9); NEUTROPHILS % 90.7 % (38.7-80.0); PLATELET COUNT 125 x10e3/uL (140-360); RED CELL DISTRIBUTION WIDTH 17.2 % (11.7-14.4)
[2022-07-12] MEDS: TIOTROPIUM 18 MCG INH POWDER INH SCH (07:38)
[2022-07-12] MEDS ORDERED: BENZONATATE 100 MG CAP PO PRN (08:15)
[2022-07-12] MEDS: METOPROLOL TARTRATE 50 MG TAB PO SCH ×2 (08:46→16:46)
[2022-07-12] MEDS: METHYLPREDNISOLONE SOD SUCC 40 MG/ML VIAL 1ML IV SCH ×2 (08:46→20:12)
[2022-07-12] MEDS: AMLODIPINE BESYLATE 10 MG TAB PO SCH (08:46)
[2022-07-12] MEDS: ASPIRIN 81 MG CHEW TAB PO SCH (08:46)
[2022-07-12] MEDS ORDERED: FUROSEMIDE INJ 10 MG/ML 2 ML VIAL IV ONE (11:30)
[2022-07-12] MEDS: REMDESIVIR 100MG 100 MG in SODIUM CHLORIDE 0.9% 100 ML IV SCH (14:00)
[2022-07-12] MEDS: ENOXAPARIN 30 MG/0.3 ML SYR SC SCH (16:46)
[2022-07-12] MEDS: ATORVASTATIN 40 MG TAB PO SCH (20:12)
[2022-07-13] VITALS: BP 120/60
[2022-07-13 04:10] VITALS: BP 117/53
[2022-07-13] MEDS: TIOTROPIUM 18 MCG INH POWDER INH SCH (06:50)
[2022-07-13] MEDS: ALBUTEROL SULFATE HFA 8GM INHALATION AEROSOL INH PRN (08:05)
[2022-07-13 08:20] VITALS: BP 142/86
[2022-07-13 08:40] VITALS: BP 142/86
[2022-07-13] MEDS ORDERED: AZITHROMYCIN 250 MG TAB PO SCH (09:00)
[2022-07-13] MEDS: AMLODIPINE BESYLATE 10 MG TAB PO SCH (09:08)
[2022-07-13] MEDS: METOPROLOL TARTRATE 50 MG TAB PO SCH (09:09)
[2022-07-13] MEDS: METHYLPREDNISOLONE SOD SUCC 40 MG/ML VIAL 1ML IV SCH (09:09)
[2022-07-13] MEDS: ASPIRIN 81 MG CHEW TAB PO SCH (09:09)
[2022-07-13 12:00] VITALS: BP 131/58
[2022-07-13] MEDS ORDERED: DEXAMETHASONE6 MG PO (12:06)
[2022-07-13] MEDS ORDERED: AZITHROMYCIN500 MG PO (12:06)
[2022-07-13] MEDS: REMDESIVIR 100MG 100 MG in SODIUM CHLORIDE 0.9% 100 ML IV SCH (13:47)
== END 2022-07-13 16:05 | disposition home or self-care (01) | DRG 177 ==
LOC: ER 20:15 → ERHOLD 20:36 → MED/SURG2 07-10 00:28 → MED/SURG3 07-10 01:37
PROVIDERS: ADMIT Internal Medicine; ATTEND Internal Medicine
PROC: 8E0ZXY6 Isolation (ICD-10-PCS; principal; 2022-07-09)
PROC: XW033E5 Introduction of Remdesivir Anti-infective into Peripheral Vein, Percutaneous Approach, New Technology Group 5 (ICD-10-PCS; 2022-07-10)
DX: U07.1 COVID-19 (principal); J12.82 Pneumonia due to coronavirus disease 2019; J96.21 Acute and chronic respiratory failure with hypoxia; J15.9 Unspecified bacterial pneumonia; E87.1 Hypo-osmolality and hyponatremia; J44.1 Chronic obstructive pulmonary disease with (acute) exacerbation; I25.10 Atherosclerotic heart disease of native coronary artery without angina pectoris; F17.210 Nicotine dependence, cigarettes, uncomplicated; Z95.5 Presence of coronary angioplasty implant and graft; Z88.0 Allergy status to penicillin; D69.6 Thrombocytopenia, unspecified; Z99.81 Dependence on supplemental oxygen; Z85.118 Personal history of other malignant neoplasm of bronchus and lung; Z79.899 Other long term (current) drug therapy
CPT/HCPCS: 36415; 71045; 80048; 80053; 82550; 82553; 82948; 83605; 83880; 84484; 85025; 87040; 93005; 94664; 94799; 99252; 99285; J0248; J0456; J1650; J1940; J2920; J7050

== ENCOUNTER 2022-07-27 21:15 | Emergency (ER) | payer MEDICARE ==
[~2022-07-27] VITALS: Ht 152.4 cm; Wt 63.5 kg
[~2022-07-27 21:15] MED LIST changes: +AZITHROMYCIN500 MG PO; +DEXAMETHASONE6 MG PO; -LEVOFLOXACIN 750MG/D5W 150ML 150 ML IV SCH
[2022-07-27] MEDS ORDERED: SODIUM CHLORIDE FLUSH 10 ML SYR IV PRN (22:15)
[2022-07-27] MEDS ORDERED: METHYLPREDNISOLONE SOD SUCC 125 MG/2ML VIAL IV ONE (22:15)
[2022-07-27] MEDS ORDERED: ALBUTEROL/IPRATROPIUM 3 ML NEB NEB ONE (22:15)
[2022-07-27 22:40] LABS: BASOPHILS % 0.2 % (0.0-1.0); EOSINOPHILS % 0.4 % (0.0-6.0); HEMATOCRIT 38.8 % (34.2-44.1); HEMOGLOBIN 12.9 g/dL (12.0-16.0); LYMPHOCYTES # (AUTO) 1.4 (1.0-3.2); LYMPHOCYTES % 14.7 % (18.0-39.1); MEAN CORPUSCULAR HEMOGLOBIN 32.7 pg (28-32); MEAN CORPUSCULAR HGB CONC 33.2 g/dL (31-35); MEAN CORPUSCULAR VOLUME 98.5 fL (81-99); MONOCYTES # (AUTO) 0.4 (0.2-0.8); MONOCYTES % 3.9 % (4.4-11.3); NEUTROPHILS # (AUTO) 7.4 (2.1-6.9); PLATELET COUNT 147 x10e3/uL (140-360); RED BLOOD COUNT 3.94 x10e6/uL (3.6-5.1)
[2022-07-27 22:58] LABS: ALBUMIN 2.9 g/dL (3.5-5.0); ALBUMIN/GLOBULIN RATIO 0.9 (0.8-2.0); ANION GAP 14.6 mmol/L (8-16); CREATININE, SERUM 0.71 mg/dL (0.57-1.11); POTASSIUM 3.6 mmol/L (3.5-5.1)
[2022-07-28] MEDS ORDERED: ALBUTEROL SULF 0.083% NEB SOLN 3 ML NEB ONE (01:36)
[2022-07-28] MEDS ORDERED: IPRATROPIUM BROMIDE 0.02% 2.5 ML NEB ONE (01:42)
[2022-07-28] MEDS ORDERED: LEVOFLOXACIN750 MG PO (02:29)
[2022-07-28] MEDS ORDERED: PREDNISONE50 MG PO (02:29)
== END 2022-07-28 02:22 | disposition home or self-care (01) ==
LOC: ER 21:20
DX: R06.02 Shortness of breath (principal); J44.1 Chronic obstructive pulmonary disease with (acute) exacerbation; R05.9 Cough, unspecified; I10 Essential (primary) hypertension; E78.5 Hyperlipidemia, unspecified; Z85.118 Personal history of other malignant neoplasm of bronchus and lung; Z85.818 Personal history of malignant neoplasm of other sites of lip, oral cavity, and pharynx
CPT/HCPCS: 36415; 71045; 80053; 85025; 94640; 94760; 94799; 99284; J2930